=== PATIENT | female | born 1975 | race Caucasian/White ===

== ENCOUNTER 2021-06-14 18:50 | Inpatient (IN) | payer MEDICARE, MEDICAID, SELFPAY ==
[2021-06-14] VITALS (31 sets, daily range): BP systolic 114–138; BP diastolic 69–90; PULSE 94–125; RESP 14–34; TEMP 37.3; O2SAT 83–100
--- NOTE | ~2021-06-14 | XR_ITS ---
EXAMINATION: XR chest 1V portable DATE: 06/15/2021 17:13 INDICATION: Pulmonary edema. TECHNIQUE: A single frontal view of the chest was obtained. COMPARISON: Chest single view 06/14/21 FINDINGS: There is a diffuse interstitial pattern, consistent with mild pulmonary edema. No pleural e ffusion or pneumothorax. The heart size is normal. IMPRESSION: 1. Mild pulmonary edema. Reviewed, dictated and finalized at location A. [employer] IMPRESSION: 1. Mild pulmonary edema.
--- NOTE | ~2021-06-14 | XR_ITS ---
EXAMINATION: XR chest 2V DATE: 06/17/2021 09:54 INDICATION: Pulmonary edema TECHNIQUE: PA and lateral views of the chest were obtained. COMPARISON: Chest radiograph dated process 11/29 FINDINGS: Mild increased interstitial pattern in the bilateral lower lung zones consistent with mild pulmonary edema. New more confluent airspace opacities at the posterolateral left lung base consistent with ate lectasis and/or pneumonia. No pleural effusion or pneumothorax. The cardiomediastinal silhouette is n ormal. Cholecystectomy clips in the right upper quadrant. IMPRESSION: 1. Focal airspace opacities the posterolateral left lung base which could represent atelectasis and/o r pneumonia. 2. Mild pulmonary edema at the lung bases. Reviewed, dictated and finalized at location B. STS' MODEL IMPRESSION: 1. Focal airspace opacities the posterolateral left lung base which could repre sent atelectasis and/or pneumonia. 2. Mild pulmonary edema at the lung bases.
--- NOTE | ~2021-06-14 | XR_ITS ---
EXAMINATION: XR chest 1V portable DATE: 06/14/2021 19:23 INDICATION: Dyspnea. TECHNIQUE: A single frontal view of the chest was obtained. COMPARISON: None. FINDINGS: The lung volumes are normal. A calcified right lung nodule is consistent with old granuloma tous disease. There is a diffuse interstitial pattern in the lungs. No pleural effusion or pneumothor ax. The heart size is normal. There are prominent paracardial fat pads. IMPRESSION: 1. Diffuse interstitial pattern in the lungs, consistent with mild pulmonary edema versus atypical pn eumonia. Reviewed, dictated and finalized at location A. RIAL DISTRIBUTOR IMPRESSION: 1. Diffuse interstitial pattern in the lungs, consistent with mild pulmonary ed alex versus atypical pneumonia.
--- NOTE | 2021-06-14 18:51 | ECG_ITS ---
Measurements Intervals [place] Rate: 117 P: 75 PA: 104 QRS: -29 QRSD: 82 T: 62 QT: 273 QTc: 382 Interpretive Statements SINUS TACHYCARDIA WITH SHORT PA INTERVAL POOR R WAVE PROGRESSION, ANTERIOR LEADS BORDERLINE ST-T WAVE ABNORMALITY- INF/HIGH LAT LEADS BASELINE ARTIFACT- I, II, III, AVR, AVL, AVF ABNORMAL ECG Electronically Signed On 06-14-2021 20:21:54 ASSISTANT OFFSET PRESS OPERATOR by Mathieu Restrepo D.O.
[2021-06-14] MEDS: IPRATROPIUM BR 0.02% INH SOLN 0.5 MG/2.5 ML VIAL 1 MG INHALATION (19:13)
[2021-06-14] MEDS: ALBUTEROL SULFATE NEB 2.5 MG/0.5 ML INH 10 MG INHALATION (19:13)
[2021-06-14 19:18] LABS: Alveolar/Arterial O2 Gradient 234.1 mmHg; Base Excess ABG -2.1 mEq/l (+/-2.0); Fractional Inspired Oxygen 48 %; HCO3 ABG 25.3 mEq/l (22.0-26.0); Methemoglobin ABG 0.2 %THb (0-1.5); Oxygen Content ABG 16.1 %vol (16.0-22.0); PCO2 ABG 53.6 mmHg (35.0-45.0); PO2 FiO2 Ratio Arterial Blood 0.99 %; Reduced Hemoglobin 15.6 %THb (0-5.0); Total Hemoglobin 14.7 g/dL (12.0-18.0)
[2021-06-14 19:20] LABS: Oxygen Saturation ABG 78.3 % (95.0-100.0); PO2 ABG 47.6 mmHg (80.0-100.0); pH ABG 7.292 (7.350-7.450)
[2021-06-14 19:21] LABS: Device NASAL CANNULA; Modified Allen's Test Pass; Oxyhemoglobin 78.2 % THb (90.0-100.0); Site Drawn LEFT RADIAL
[2021-06-14] MEDS: methylPREDNISolone SOD SUCC 125 MG VIAL IV PUSH (19:21)
[2021-06-14 19:38] LABS: Basophils Absolute Auto 0.1 K/mm3 (0.0-0.1); Basophils Percent Auto 0.7 % (0.2-1.2); Eosinophils Absolute Auto 0.2 K/mm3 (0-0.3); Eosinophils Percent Auto 1.3 % (0-4.4); Hematocrit 44.6 % (37.0-47.0); Hemoglobin 13.8 g/dL (12.0-15.0); Immature Granulocyte Absolute 0.07 K/mm3 (0.00-0.031); Immature Granulocyte Percent A 0.6 % (0-0.5); Lymphocytes Absolute Auto 2.56 K/mm3 (0.9-3.2); Lymphocytes Percent Auto 21.6 % (18.3-44.2); Mean Corpuscular HGB Conc 30.9 g/dl (32-36); Mean Corpuscular Hemoglobin 30.2 pg (26-34); Mean Corpuscular Volume 97.6 fl (80-100); Mean Platelet Volume 10.6 fl (7.4-10.4); Monocytes Absolute Auto 1.1 K/mm3 (0.1-0.6); Monocytes Percent Auto 8.9 % (2.6-8.5); Neutrophils Absolute Auto 7.9 K/mm3 (1.3-6.7); Neutrophils Percent Auto 66.9 % (45.5-73.1); Nucleated Red Blood Cells Perc 0.3 % (0.0-0.2); Platelet Count Result 250 k/mm3 (150-375); Red Blood Count 4.57 M/mm3 (4.2-5.4); Red Cell Distribution Width 18.2 % (11.5-14.5); White Blood Count 11.9 K/mm3 (4.5-10.0)
[2021-06-14 19:48] LABS: Add Urine Microscopic? YES; Appearance Urine Clear (Clear); Bilirubin Urine Negative (Negative); Blood Urine Negative (Negative); Color Urine Straw (Yellow); Glucose Urine UA Negative (Negative); Ketones Urine Negative (Negative); Leukocyte Esterase Ur Negative LEU/UL (Negative); Mucus Urine Rare /lpf; Nitrate Urine Negative (Negative); Protein Urine 1+ mg/dL (Negative); RBC Urine 0-2 /hpf (0-2); Squamous Epithelial Cell Urine Occasional /hpf (Few); Urobilinogen Urine Negative mg/dL (<2.0); WBC Urine 0-3 /hpf
[2021-06-14 19:49] LABS: Alanine Aminotransferase 26 U/L (4-35); Albumin Level 3.9 g/dL (3.5-5.1); Alkaline Phosphatase 118 U/L (38-126); Anion Gap 11 mmol/L (8-16); Aspartate Amino Transferase 36 U/L (14-36); Bilirubin,Total 0.7 mg/dL (0.2-1.3); Blood Urea Nitrogen 6 mg/dL (7-17); Calcium 8.1 mg/dL (8.4-10.2); Carbon Dioxide 24 mmol/L (22-30); Chloride 107 mmol/L (98-107); Estimated CRCL calculation 77 ml/min; Estimated Glomerular Filt Rate > 60; Glucose 132 mg/dL (65-110); Potassium 3.3 mmol/L (3.4-5.0); Sodium 142 mmol/L (137-145)
[2021-06-14 19:50] LABS: Lactic Acid Reflex 1.5 mmol/L (0.7-2.1)
--- NOTE | 2021-06-14 19:52 | ED.SOB ---
HPI - SOB/Dyspnea General Chief Complaint: Shortness of Breath/Dyspnea Stated Complaint: SOb Time Seen by Provider: 06/14/21 18:58 Source: patient and RN notes reviewed Mode of arrival: ambulatory Limitations: no limitations History of Present Illness HPI Narrative: This is a 46 year old female with history CHF, COPD, chronic respiratory failure of 4 L NC who presents for evaluation of shortness of breath. She reports chronic sob but it became worse last night into today. On arrival to ER, she was found to have oxygen saturation of 83 % on 4 L NC. She reports having fever of 101 2 days ago. She also reports nonproductive worsening cough and runny nose. She has constant chest pressure for 2-3 days but denies any exacerbating factors. She reports chronic leg swelling from CHF but no worsening. She also denies nausea or vomiting. She is still awaiting her booster vaccination. Related Data Home Medications Medication Instructions Recorded Confirmed alprazolam 1 mg PO BID 06/15/21 06/15/21 duloxetine 60 mg PO DAILY 06/15/21 06/15/21 ibuprofen 800 mg PO Q8H 06/15/21 06/15/21 levetiracetam 1,000 mg PO BID 06/15/21 06/15/21 mirtazapine 45 mg PO HS 06/15/21 06/15/21 zolpidem 5 mg PO HS PRN 06/15/21 06/15/21 Allergies Allergy/AdvReac Type Severity Reaction Status Date / Time levofloxacin Allergy unknown Verified 12/23/20 10:43 Review of Systems Review of Systems: All systems reviewed & are unremarkable except as noted in HPI and below PMFSH Past Medical History Medical History (Updated 06/15/21 @ 00:29 by Lidya Ngo MD) CHF (congestive heart failure) Chronic respiratory failure Emphysema/COPD Exam Const: General: alert and ill appearing Orientation/consciousness: patient oriented x3 Other: lethargic Eyes: EOM: EOMs intact bilaterally Chest: Chest palpation & inspection: normal inspection of the chest Resp: Effort & Inspection: not labored and tachypneic Auscultation: wheezes and diminished lung sounds Cardio: Rate: tachycardic Rhythm: regular rhythm Heart sounds: no murmurs GI: GI Palp: Yes Soft to palpation, No Tenderness to palpation present (GI) and No Guarding due to palpation present (GI) Auscultation: normal bowel sounds Skin: General skin exam: normal color Neuro: General: patient oriented x3, moves all extremities and CN's II-XI intact bilaterally Psych: Mental Status: mental status grossly normal Affect: normal affect Course Reevaluation(s) Reevaluation #1: PAtient is agreeable to be placed on BIPAP for respiratory failure with hypercapnea Date: 06/14/21 Time: 20:00 Reevaluation #2: Patient is up and awake. she is asking for food. She reports she feels better. She understands that she will be admitted. she has been given treatment for COPD, CHF and pneumonia. She is PUI covid Date: 06/15/21 Time: 22:00 Consultations Consultation #1: I Discussed case with DR Loretta Rivera. We discussed ABg. Will changed BIPAP parameters to 18/6 with Fio2 of 40%. Date: 06/15/21 Time: 22:30 Vital Signs Vital signs: Vital Signs Temperature 99.1 F 06/14/21 18:55 Pulse Rate 125 H 06/14/21 18:55 Respiratory Rate 20 06/14/21 18:55 Blood Pressure 137/73 06/14/21 18:55 Pulse Oximetry 83 L 06/14/21 18:55 Temperature 97.9 F 06/15/21 01:17 Pulse Rate 95 06/15/21 01:17 Respiratory Rate 13 06/15/21 01:17 Blood Pressure 123/79 06/15/21 01:16 Pulse Oximetry 95 06/15/21 01:17 MDM - SOB/Dyspnea Lab Data Attestation: I reviewed the patient's lab results. Result diagrams: 06/14/21 19:21 06/14/21 19:21 Labs: Lab Results 06/14/21 06/14/21 06/14/21 Range/Units 19:10 19:21 19:21 WBC 11.9 H (4.5-10.0) K/mm3 RBC 4.57 (4.2-5.4) M/mm3 Hgb 13.8 (12.0-15.0) g/dL Hct 44.6 (37.0-47.0) % MCV 97.6 (80-100) fl MCH 30.2 (26-34) pg MCHC 30.9 L (32-36) g/dl RDW 18.2 H (11.5-14.5) % Plt Count 250
[2021-06-14 19:56] LABS: Specific Grav Ur 1.002 (1.001-1.035)
[2021-06-14] MEDS: POTASSIUM CHLORIDE 20 MEQ TABLET 40 MEQ PO (19:58)
[2021-06-14 20:01] LABS: NT Pro B Type Natriuretic Pept 1640 pg/mL (5-100); Troponin I < 0.012 ng/mL (0.000-0.034)
[2021-06-14 20:19] LABS: Anisocytosis 1+ (NORMAL); Hypochromasia 1+ (NORMAL); Ovalocytes 1+ (NORMAL); Platelet Estimate Adequate (Adequate)
[2021-06-14 20:20] LABS: Acanthocytes 1+ (NORMAL)
[2021-06-14 22:06] LABS: Base Excess ABG -1.1 mEq/l (+/-2.0); Carboxyhemoglobin 3.9 % THb (0-2.0); Fractional Inspired Oxygen 65 %; HCO3 ABG 27.6 mEq/l (22.0-26.0); Methemoglobin ABG 0.3 %THb (0-1.5); Oxygen Content ABG 20.2 %vol (16.0-22.0); Oxygen Saturation ABG 96.6 % (95.0-100.0); Oxyhemoglobin 92.7 % THb (90.0-100.0); PO2 ABG 100.8 mmHg (80.0-100.0); PO2 FiO2 Ratio Arterial Blood 1.55 %; Reduced Hemoglobin 3.1 %THb (0-5.0); Total Hemoglobin 15.4 g/dL (12.0-18.0)
[2021-06-14 22:07] LABS: Modified Allen's Test Pass; PCO2 ABG 63.1 mmHg (35.0-45.0); Site Drawn RIGHT RADIAL; pH ABG 7.259 (7.350-7.450)
[2021-06-14 22:08] LABS: Device BIPAP
[2021-06-14 22:09] LABS: Expiratory Pressure 6 cmH2O; Inspiratory Pressure 14 cmH2O
[2021-06-14] MEDS: FUROSEMIDE INJ 40 MG/4 ML VIAL IV PUSH (22:34)
--- NOTE | 2021-06-14 23:20 | PC.NURSE ---
Report received from CHRISS Bolivar. Assumed care of patient at this time.
[2021-06-15] VITALS (42 sets, daily range): BP systolic 107–128; BP diastolic 49–100; PULSE 65–107; RESP 12–27; TEMP 36.5–36.8; O2SAT 91–100; BMI 36.3
[2021-06-15] MEDS: methylPREDNISolone SOD SUCC 125 MG VIAL 60 MG IV PUSH ×4 (01:24→17:01)
[2021-06-15 01:59] LABS: Alveolar/Arterial O2 Gradient 146.5 mmHg; Base Excess ABG -2.1 mEq/l (+/-2.0); Fractional Inspired Oxygen 40 %; HCO3 ABG 26.4 mEq/l (22.0-26.0); Methemoglobin ABG 0.3 %THb (0-1.5); Oxygen Content ABG 19.5 %vol (16.0-22.0); Oxygen Saturation ABG 90.9 % (95.0-100.0); Oxyhemoglobin 89.7 % THb (90.0-100.0); PO2 ABG 69.4 mmHg (80.0-100.0); PO2 FiO2 Ratio Arterial Blood 1.74 %; Total Hemoglobin 15.5 g/dL (12.0-18.0)
[2021-06-15 02:04] LABS: pH ABG 7.259 (7.350-7.450)
[2021-06-15 02:05] LABS: Device NON-INVASIVE VENT; Modified Allen's Test Pass; PCO2 ABG 60.3 mmHg (35.0-45.0); Site Drawn LEFT RADIAL
[2021-06-15 02:06] LABS: Non-Invasive Expiratory Pressure 6 CMH2O; Non-Invasive Inspiratory Pressure 18 CMH2O; Non-Invasive Vent Rate 20 /MIN
--- NOTE | 2021-06-15 02:10 | PM.IMHP ---
H&P: HPI History of Present Illness Date/Time: 06/15/21 02:10 Chief Complaint: Shortness of breath Narrative: 46-year-old female with a past medical history CHF, COPD, chronic hypercapnic/hypoxic respiratory failure on 2 L nasal cannula at all times who presented to the ER with shortness of breath. The patient reports that she is chronically short of breath but it became worse the night before she presented to the ER. On arrival to the ER she had hypoxia with oxygen saturations of 83% on her home O2 of 4 L. her shortness of breath was accompanied by a fever of 101.2? that started 2 days ago. She has associated chest pressure/tightness that is general for the last 2-3 days and a nonproductive cough with rhinorrhea. She is vaccinated against COVID-19 but has not yet received her booster. She reports that she has not been hospitalized for COPD in over a year. She has never been evaluated at this facility before. She reported history of CHF but denies any lower extremity swelling or orthopnea. She denies any rhinorrhea nasal congestion. She denies any known ill contacts but lives in the home with her 23-year-old son 18-year-old son and her brother. She does wear her CPAP/BiPAP as directed. She continues to smoke 2-3 cigarettes a day. Chest x-ray in the ER demonstrated diffuse interstitial pattern consistent with mild pulmonary edema or atypical pneumonia. She reports that she feels much better after receiving steroids and antibiotics in the ER. She is currently wearing BiPAP as time of my evaluation. She was hopeful that she would be discharged today. Review of Systems Review of Systems: 12 systems were reviewed with pertinent positives and negatives per HPI. Except as documented in the HPI, all other systems were reviewed and are negative. 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 Her mother recently unexpectedly in August. She reports that she is now the november are cool figure in the family in this at some stress. Her sons are 18 in 23 years of age. She smoked up to 1.5 packs of cigarettes per day since he was a teenager but has cut down to about 0.5 packs of cigarettes per day since November 2020. She denies any significant alcohol use. She reports that she is on SSI. Smoking packs per day: 1.5 Smoking cigarettes per day: 30.0 Years smoked: 30 Smoking pack-years: 45.00 Smoking status: Current every day smoker Alcohol intake: never Meds Home Medications and Allergies Home Medications Medication Instructions Recorded Confirmed Type pregabalin 50 mg capsule 50 mg PO TID #90 cap 06/11/21 06/15/21 Rx alprazolam 1 mg PO BID 06/15/21 06/15/21 History duloxetine 60 mg PO DAILY 06/15/21 06/15/21 History ibuprofen 800 mg PO Q8H 06/15/21 06/15/21 History levetiracetam 1,000 mg PO BID 06/15/21 06/15/21 History mirtazapine 45 mg PO HS 06/15/21 06/15/21 History zolpidem 5 mg PO HS PRN 06/15/21 06/15/21 History Allergies Allergy/AdvReac Type Severity Reaction Status Date / Time levofloxacin Allergy unknown Verified 12/23/20 10:43 Vital Signs Vital Signs - 24 hr 06/14/21 18:55 06/14/21 18:58 06/14/21 18:59 Temperature 99.1 F Pulse Rate 125 H 125 H 124 H Respiratory Rate 20 28
--- NOTE | 2021-06-15 02:16 | PC.NURSE ---
VORB increase patients respiratory rate to 26, order by . Contacted respiratory to inform them of verbal order.
[2021-06-15] MEDS: MIRTAZAPINE 15 MG TABLET 45 MG PO ×2 (02:21→20:08)
[2021-06-15] MEDS: levETIRAcetam 500 MG TABLET 1000 MG PO ×3 (02:22→20:08)
--- NOTE | 2021-06-15 03:10 | PC.NURSE ---
0303 Patients darian Gonzales calls to get update on patient. This nurse informs him of patients status.
[2021-06-15 05:13] LABS: Alveolar/Arterial O2 Gradient 141.2 mmHg; Base Excess ABG -0.9 mEq/l (+/-2.0); Carboxyhemoglobin 2.4 % THb (0-2.0); Fractional Inspired Oxygen 40 %; HCO3 ABG 27.3 mEq/l (22.0-26.0); Methemoglobin ABG 0.3 %THb (0-1.5); Oxygen Content ABG 19.6 %vol (16.0-22.0); Oxygen Saturation ABG 93.1 % (95.0-100.0); Oxyhemoglobin 91.7 % THb (90.0-100.0); PCO2 ABG 59.7 mmHg (35.0-45.0); PO2 ABG 75.3 mmHg (80.0-100.0); PO2 FiO2 Ratio Arterial Blood 1.88 %; Reduced Hemoglobin 5.6 %THb (0-5.0); Total Hemoglobin 15.2 g/dL (12.0-18.0)
[2021-06-15 05:14] LABS: Basophils Percent Auto 0.3 % (0.2-1.2); Hematocrit 47.6 % (37.0-47.0); Hemoglobin 14.7 g/dL (12.0-15.0); Immature Granulocyte Absolute 0.11 K/mm3 (0.00-0.031); Immature Granulocyte Percent A 1.5 % (0-0.5); Lymphocytes Absolute Auto 0.69 K/mm3 (0.9-3.2); Lymphocytes Percent Auto 9.5 % (18.3-44.2); Mean Corpuscular HGB Conc 30.9 g/dl (32-36); Mean Corpuscular Hemoglobin 30.1 pg (26-34); Mean Corpuscular Volume 97.3 fl (80-100); Mean Platelet Volume 10.9 fl (7.4-10.4); Monocytes Absolute Auto 0.1 K/mm3 (0.1-0.6); Monocytes Percent Auto 1.6 % (2.6-8.5); Neutrophils Absolute Auto 6.4 K/mm3 (1.3-6.7); Neutrophils Percent Auto 87.1 % (45.5-73.1); Platelet Count Result 241 k/mm3 (150-375); Red Blood Count 4.89 M/mm3 (4.2-5.4); Red Cell Distribution Width 18.6 % (11.5-14.5); White Blood Count 7.3 K/mm3 (4.5-10.0)
[2021-06-15 05:14] LABS: pH ABG 7.278 (7.350-7.450)
[2021-06-15 05:15] LABS: Device BIPAP; Expiratory Pressure 6 cmH2O; Inspiratory Pressure 18 cmH2O; Modified Allen's Test Pass; Site Drawn RIGHT RADIAL
[2021-06-15 05:21] LABS: Alanine Aminotransferase 27 U/L (4-35); Albumin Level 4.2 g/dL (3.5-5.1); Alkaline Phosphatase 125 U/L (38-126); Anion Gap 10 mmol/L (8-16); Aspartate Amino Transferase 31 U/L (14-36); Bilirubin,Total 0.6 mg/dL (0.2-1.3); Blood Urea Nitrogen 7 mg/dL (7-17); Calcium 8.4 mg/dL (8.4-10.2); Carbon Dioxide 27 mmol/L (22-30); Chloride 104 mmol/L (98-107); Estimated CRCL calculation 70 ml/min; Estimated Glomerular Filt Rate 59; Glucose 207 mg/dL (65-110); Potassium 4.9 mmol/L (3.4-5.0); Sodium 141 mmol/L (137-145)
[2021-06-15] MEDS: ALPRAZolam (*CRX) 0.5 MG TABLET 1 MG PO ×2 (09:10→17:01)
[2021-06-15] MEDS: DULoxetine HCL 60 MG CAPSULE.DR PO (09:11)
[2021-06-15] MEDS: POTASSIUM CHLORIDE 20 MEQ TABLET.ER PO (09:34)
--- NOTE | 2021-06-15 09:41 | PC.NURSE ---
pt darian solomon contacted at [phone] per pts request. made aware of pts status and plan of care
--- NOTE | 2021-06-15 10:20 | ADMGEN ---
This patient, Sydni Olivera, was admitted to [facility]. Patient/family oriented to hospital policies and general routines including ID bracelet, bed and alarms, visiting hours, pain management, procedures, bathroom and other care routines, personal items, smoking policy, room service/diet, and visiting hours. Information on how to activate the Rapid Response Team has been discussed. Patient/Family are encouraged to report perceived risks to care and to ask questions if they do not understand what they are told or what they should do.
[2021-06-15] MEDS: ALBUTEROL SULFATE (*SP) AEROSOL 1 PUFF 4 PUFF INHALATION ×2 (13:20→22:49)
[2021-06-15] MEDS: PREGABALIN (*CRX) 50 MG CAPSULE PO ×2 (14:30→17:01)
--- NOTE | 2021-06-15 16:35 | PM.IMPN ---
Progress Note: A&P Assessment and Plan (1) Acute on chronic respiratory failure with hypoxia and hypercapnia: Code(s): J96.21 - Acute and chronic respiratory failure with hypoxia; J96.22 - Acute and chronic respiratory failure with hypercapnia Status: Acute Assessment and Plan: Patient has a history of chronic hypoxic hypercapnic respiratory failure on 2 L nasal cannula at all times. She wears a BiPAP at night. She presented with worsening shortness of breath, hypoxia, fever, chest tightness and a dry cough with upper respiratory symptoms. She continues to smoke 3 cigarettes a day. She was diagnosed with acute on chronic hypercapnic hypoxic respiratory failure, felt to be most likely due to underlying lower respiratory tract infection with pneumonia. Cause of pneumonia is uncertain could be bacterial versus viral/COVID. Patient remains on droplet isolation while COVID test is pending. Patient been placed on empiric antibiotic therapy with Rocephin and azithromycin for possible bacterial pathology. The patient's ABG demonstrate slight improvement of blood gas. She was appropriately started on IV steroids, IV antibiotic and diuretic in the ED after chest x-ray demonstrated diffuse interstitial pattern consistent with mild pulmonary edema versus atypical pneumonia. COVID serology has been sent and remains pending at the time of this dictation. Continue ceftriaxone, Zithromax and Solu-Medrol. Continue IV Lasix. Repeat abg in AM. (2) Person under investigation for COVID-19: Code(s): Z20.822 - Contact with and (suspected) exposure to COVID-19 Status: Acute Assessment and Plan: COVID serologies pending at the time of the dictation. (3) Respiratory acidosis: Code(s): E87.2 - Acidosis Status: Acute Assessment and Plan: ABG was reviewed. Historically patient is a chronic CO2 retainer. Continue BiPAP at bedtime and p.r.n.. Check ABG in a.m.. (4) Pneumonia: Code(s): J18.9 - Pneumonia, unspecified organism Status: Acute Assessment and Plan: Patient presented with a history of fever. On CBC there is no leukocytosis. Chest x-ray shows diffuse interstitial pattern in the lungs, consistent with mild pulmonary edema versus atypical pneumonia. Additional Plan Patient presented with acute on chronic hypercapnic hypoxic respiratory failure most likely due to underlying lower respiratory tract infection with pneumonia. Cause of pneumonia is uncertain could be bacterial versus viral/COVID. Patient remains on droplet isolation and COVID test is pending. Patient been placed on empiric antibiotic therapy with Rocephin and azithromycin for possible bacterial pathology. The patient's ABG demonstrate slight improvement of blood gas. At some of my evaluation did tight the patient's face mask. After labs ABG I did increase the patient's pressure to 22/6 from 18/6 and her backup rate had been increased to 26. The patient seems relatively asymptomatic and is eager to eat. I suspect that the patient likely has some chronic respiratory acidosis and would be surprised if her pH is in always below 7.3 given how asymptomatic she is. Will continue patient on scheduled IV Solu-Medrol and scheduled albuterol inhalers. Patient was given a dose of Lasix in the ER but the patient appears relatively euvolemic in given the fact the patient was febrile at home willing towards more pneumonia than pulmonary edema noted on x-ray read. Subjective Date/time seen: 46-year-old female with a past medical history CHF, COPD, chronic hypercapnic/hypoxic respiratory failure on 2 L nasal cannula at all times who presented to the ER with shortness of breath. The patient reports that she is chronically short of breath but it became worse the night before she presented to the ER. On arrival to the ER she had hypoxia with oxygen saturations of 83% on her home O2 of 4 L. her shortness of breath was accompanied by a fever of 101.2?
--- NOTE | 2021-06-15 18:57 | PC.NURSE ---
This patient, Sydni Olivera, was received from [ ER] on 06/15/21 at 1838. Patient/family oriented to unit policies and routines. Pt on 6 L nasal canula. A&O x3.
[2021-06-16] VITALS (18 sets, daily range): BP systolic 110–122; BP diastolic 51–68; PULSE 73–115; RESP 18–28; TEMP 36.1–36.6; O2SAT 91–100
[2021-06-16] MEDS: methylPREDNISolone SOD SUCC 125 MG VIAL 60 MG IV PUSH ×5 (00:13→23:06)
[2021-06-16] MEDS: ALBUTEROL SULFATE (*SP) AEROSOL 1 PUFF 4 PUFF INHALATION ×4 (02:27→20:12)
[2021-06-16 05:48] LABS: Basophils Percent Auto 0.2 % (0.2-1.2); Hematocrit 44.1 % (37.0-47.0); Hemoglobin 13.5 g/dL (12.0-15.0); Immature Granulocyte Absolute 0.09 K/mm3 (0.00-0.031); Immature Granulocyte Percent A 0.7 % (0-0.5); Lymphocytes Absolute Auto 0.85 K/mm3 (0.9-3.2); Lymphocytes Percent Auto 6.6 % (18.3-44.2); Mean Corpuscular HGB Conc 30.6 g/dl (32-36); Mean Corpuscular Hemoglobin 29.9 pg (26-34); Mean Corpuscular Volume 97.6 fl (80-100); Mean Platelet Volume 11.2 fl (7.4-10.4); Monocytes Absolute Auto 0.4 K/mm3 (0.1-0.6); Monocytes Percent Auto 2.9 % (2.6-8.5); Neutrophils Absolute Auto 11.6 K/mm3 (1.3-6.7); Neutrophils Percent Auto 89.6 % (45.5-73.1); Platelet Count Result 261 k/mm3 (150-375); Red Blood Count 4.52 M/mm3 (4.2-5.4); Red Cell Distribution Width 17.7 % (11.5-14.5); White Blood Count 12.9 K/mm3 (4.5-10.0)
[2021-06-16 06:07] LABS: Anion Gap 5 mmol/L (8-16); Blood Urea Nitrogen 13 mg/dL (7-17); Carbon Dioxide 30 mmol/L (22-30); Chloride 102 mmol/L (98-107); Estimated CRCL calculation 91 ml/min; Estimated Glomerular Filt Rate > 60; Glucose 196 mg/dL (65-110); Potassium 4.9 mmol/L (3.4-5.0); Sodium 137 mmol/L (137-145)
[2021-06-16] MEDS: DULoxetine HCL 60 MG CAPSULE.DR PO (08:46)
[2021-06-16] MEDS: POTASSIUM CHLORIDE 20 MEQ TABLET.ER PO (08:46)
[2021-06-16] MEDS: ALPRAZolam (*CRX) 0.5 MG TABLET 1 MG PO ×2 (08:46→18:12)
[2021-06-16] MEDS: PREGABALIN (*CRX) 50 MG CAPSULE PO ×3 (08:46→18:12)
[2021-06-16] MEDS: levETIRAcetam 500 MG TABLET 1000 MG PO ×2 (08:46→20:30)
--- NOTE | 2021-06-16 11:10 | PM.IMPN ---
Progress Note: A&P Assessment and Plan (1) Acute on chronic respiratory failure with hypoxia and hypercapnia: Code(s): J96.21 - Acute and chronic respiratory failure with hypoxia; J96.22 - Acute and chronic respiratory failure with hypercapnia Status: Acute Assessment and Plan: the patient gas exchange is improving with O2 requirement down from 7 L to 5 L today. Clinically she is feeling better. BiPAP was well tolerated overnight. Unfortunately patient has remained on droplet isolation while COVID test is pending.Patient has a history of chronic hypoxic hypercapnic respiratory failure on 2 L nasal cannula at all times. She wears a BiPAP at night. She presented with worsening shortness of breath, hypoxia, fever, chest tightness and a dry cough with upper respiratory symptoms. She continues to smoke 3 cigarettes a day. She was diagnosed with acute on chronic hypercapnic hypoxic respiratory failure, felt to be most likely due to underlying lower respiratory tract infection with pneumonia. Cause of pneumonia is uncertain could be bacterial versus viral/COVID. Patient been placed on empiric antibiotic therapy with Rocephin and azithromycin for possible bacterial pathology. The patient's ABG demonstrate slight improvement of blood gas. She was appropriately started on IV steroids, IV antibiotic and diuretic in the ED after chest x-ray demonstrated diffuse interstitial pattern consistent with mild pulmonary edema versus atypical pneumonia. COVID PCR has been sent and remains pending at the time of this dictation. Continue ceftriaxone, Zithromax and Solu-Medrol. Continue IV Lasix. Repeat abg in AM. (2) Person under investigation for COVID-19: Code(s): Z20.822 - Contact with and (suspected) exposure to COVID-19 Status: Acute Assessment and Plan: COVID serologies pending at the time of the dictation. (3) Respiratory acidosis: Code(s): E87.2 - Acidosis Status: Acute Assessment and Plan: ABG was reviewed. Historically patient is a chronic CO2 retainer. Continue BiPAP at bedtime and p.r.n.. Check ABG in a.m.. (4) Pneumonia: Code(s): J18.9 - Pneumonia, unspecified organism Status: Acute Assessment and Plan: Patient presented with a history of fever. On CBC there is no leukocytosis. Chest x-ray shows diffuse interstitial pattern in the lungs, consistent with mild pulmonary edema versus atypical pneumonia. Patient improving clinically after antibiotic and diuresis. Follow up on COVID test. Additional Plan Patient presented with acute on chronic hypercapnic hypoxic respiratory failure most likely due to underlying lower respiratory tract infection with pneumonia. Cause of pneumonia is uncertain could be bacterial versus viral/COVID. Patient remains on droplet isolation and COVID test is pending. Patient been placed on empiric antibiotic therapy with Rocephin and azithromycin for possible bacterial pathology. The patient's ABG demonstrate slight improvement of blood gas. At some of my evaluation did tight the patient's face mask. After labs ABG I did increase the patient's pressure to 22/6 from 18/6 and her backup rate had been increased to 26. The patient seems relatively asymptomatic and is eager to eat. I suspect that the patient likely has some chronic respiratory acidosis and would be surprised if her pH is in always below 7.3 given how asymptomatic she is. Will continue patient on scheduled IV Solu-Medrol and scheduled albuterol inhalers. Patient was given a dose of Lasix in the ER but the patient appears relatively euvolemic in given the fact the patient was febrile at home willing towards more pneumonia than pulmonary edema noted on x-ray read. Subjective Date/time seen: 06/16/21 11:10 S: patient is examined at the bedside. Her breathing has improved significantly. No active complaints. Patient is anxious to return home. Review of Systems Review of Systems: All
[2021-06-16 19:11] LABS: SARS-CoV-2 RNA PCR Negative
[2021-06-16] MEDS: MIRTAZAPINE 15 MG TABLET 45 MG PO (20:30)
[2021-06-17] VITALS (16 sets, daily range): BP systolic 107–130; BP diastolic 48–61; PULSE 65–110; RESP 18–26; TEMP 36–36.6; O2SAT 84–97
[2021-06-17] MEDS: ALBUTEROL SULFATE (*SP) AEROSOL 1 PUFF 4 PUFF INHALATION ×2 (03:20→08:06)
[2021-06-17 06:07] LABS: Anion Gap 4 mmol/L (8-16); Blood Urea Nitrogen 19 mg/dL (7-17); Calcium 8.8 mg/dL (8.4-10.2); Carbon Dioxide 30 mmol/L (22-30); Chloride 101 mmol/L (98-107); Estimated CRCL calculation 82 ml/min; Estimated Glomerular Filt Rate > 60; Glucose 193 mg/dL (65-110); Potassium 4.9 mmol/L (3.4-5.0); Sodium 135 mmol/L (137-145)
[2021-06-17 06:11] LABS: Basophils Percent Auto 0.1 % (0.2-1.2); Hematocrit 44.8 % (37.0-47.0); Hemoglobin 13.6 g/dL (12.0-15.0); Immature Granulocyte Absolute 0.07 K/mm3 (0.00-0.031); Immature Granulocyte Percent A 0.6 % (0-0.5); Lymphocytes Absolute Auto 0.99 K/mm3 (0.9-3.2); Lymphocytes Percent Auto 8.6 % (18.3-44.2); Mean Corpuscular HGB Conc 30.4 g/dl (32-36); Mean Corpuscular Hemoglobin 29.1 pg (26-34); Mean Corpuscular Volume 95.9 fl (80-100); Mean Platelet Volume 11.1 fl (7.4-10.4); Monocytes Absolute Auto 0.4 K/mm3 (0.1-0.6); Monocytes Percent Auto 3.6 % (2.6-8.5); Neutrophils Absolute Auto 10.1 K/mm3 (1.3-6.7); Neutrophils Percent Auto 87.1 % (45.5-73.1); Platelet Count Result 268 k/mm3 (150-375); Red Blood Count 4.67 M/mm3 (4.2-5.4); Red Cell Distribution Width 17.5 % (11.5-14.5); White Blood Count 11.5 K/mm3 (4.5-10.0)
--- NOTE | 2021-06-17 09:27 | PM.IMPN ---
Progress Note: A&P Assessment and Plan (1) Acute on chronic respiratory failure with hypoxia and hypercapnia: Code(s): J96.21 - Acute and chronic respiratory failure with hypoxia; J96.22 - Acute and chronic respiratory failure with hypercapnia Status: Acute Assessment and Plan: With O2 requirement down from 7 L to 5 L today. Clinically she is feeling better. BiPAP was well tolerated overnight. Unfortunately patient has remained on droplet isolation while COVID test is negative. Patient has a history of chronic hypoxic hypercapnic respiratory failure on 4 L nasal cannula at all times. She wears a BiPAP at night. She finally presented with worsening shortness of breath, hypoxia, fever, chest tightness and a dry cough with upper respiratory symptoms. She continues to smoke 3 cigarettes a day. She was diagnosed with acute on chronic hypercapnic hypoxic respiratory failure, felt to be most likely due to underlying lower respiratory tract infection with pneumonia. Cause of pneumonia is uncertain could be bacterial versus viral/. Patient has improved on empiric antibiotic therapy with Rocephin and azithromycin for possible bacterial pathology. Blood cultures are negative so far. The patient's ABG demonstrate slight improvement of blood gas. She was appropriately started on IV steroids, IV antibiotic and diuretic in the ED after chest x-ray demonstrated diffuse interstitial pattern consistent with mild pulmonary edema versus atypical pneumonia. COVID PCR has been sent and remains pending at the time of this dictation. Continue ceftriaxone, Zithromax and Solu-Medrol. Continue IV Lasix. Follow-up repeat chest x-ray, abg in AM. (2) Person under investigation for COVID-19: Code(s): Z20.822 - Contact with and (suspected) exposure to COVID-19 Status: Acute Assessment and Plan: COVID PCR negative. Isolation was stopped. (3) Respiratory acidosis: Code(s): E87.2 - Acidosis Status: Acute Assessment and Plan: ABG was reviewed. Historically patient is a chronic CO2 retainer. Continue BiPAP at bedtime and p.r.n.. Check ABG in a.m.. (4) Pneumonia: Code(s): J18.9 - Pneumonia, unspecified organism Status: Acute Assessment and Plan: Patient presented with a history of fever. On CBC there is no leukocytosis. Chest x-ray shows diffuse interstitial pattern in the lungs, consistent with mild pulmonary edema versus atypical pneumonia. Patient improving clinically after antibiotic and diuresis. Follow up on repeat chest Xray, home O2 eval and ABG today. Additional Plan Patient presented with acute on chronic hypercapnic hypoxic respiratory failure most likely due to underlying lower respiratory tract infection with pneumonia. Cause of pneumonia is uncertain could be bacterial versus viral/COVID. Patient remains on droplet isolation and COVID test is pending. Patient been placed on empiric antibiotic therapy with Rocephin and azithromycin for possible bacterial pathology. The patient's ABG demonstrate slight improvement of blood gas. At some of my evaluation did tight the patient's face mask. After labs ABG I did increase the patient's pressure to 22/6 from 18/6 and her backup rate had been increased to 26. The patient seems relatively asymptomatic and is eager to eat. I suspect that the patient likely has some chronic respiratory acidosis and would be surprised if her pH is in always below 7.3 given how asymptomatic she is. Will continue patient on scheduled IV Solu-Medrol and scheduled albuterol inhalers. Patient was given a dose of Lasix in the ER but the patient appears relatively euvolemic in given the fact the patient was febrile at home willing towards more pneumonia than pulmonary edema noted on x-ray read. Subjective Date/time seen: 06/17/21 09:15 S: Patient is examined at the bedside. She is feeling a lot better. Her breathing has improved. COVID is negative. Sleep was adequat
[2021-06-17] MEDS: FUROSEMIDE INJ 40 MG/4 ML VIAL 20 MG IV PUSH (10:05)
[2021-06-17] MEDS: POTASSIUM CHLORIDE 20 MEQ TABLET.ER PO (10:06)
[2021-06-17] MEDS: PREGABALIN (*CRX) 50 MG CAPSULE PO ×2 (10:06→12:23)
[2021-06-17] MEDS: DULoxetine HCL 60 MG CAPSULE.DR PO (10:06)
[2021-06-17] MEDS: ALPRAZolam (*CRX) 0.5 MG TABLET 1 MG PO (10:06)
[2021-06-17] MEDS: levETIRAcetam 500 MG TABLET 1000 MG PO (10:06)
[2021-06-17 11:30] LABS: Alveolar/Arterial O2 Gradient 169.8 mmHg; Fractional Inspired Oxygen 40 %; HCO3 ABG 28.6 mEq/l (22.0-26.0); Oxygen Content ABG 19.1 %vol (16.0-22.0); Oxygen Saturation ABG 93.7 % (95.0-100.0); Oxyhemoglobin 91.9 % THb (90.0-100.0); PO2 FiO2 Ratio Arterial Blood 1.65 %; Total Hemoglobin 14.8 g/dL (12.0-18.0); pH ABG 7.441 (7.350-7.450)
[2021-06-17 11:31] LABS: Site Drawn RIGHT RADIAL
[2021-06-17 11:32] LABS: Device NASAL CANNULA; Modified Allen's Test Pass
--- NOTE | 2021-06-17 12:01 | PCRCNOTE ---
HOME O2 EVAL DONE, PT REQUIRES 5 L AT REST AND WITH EXEERTION. PT WEARS CPAP AT HOME WITH 5 L BELLED IN. THIS IS HER CURRENT HOME O2 SETTING AND NO CHANGES HAVE BEEN MADE TO O2. PT HAS ALL REQUIRED HOME O2 EQUIPMENT.
[2021-06-17] MEDS: methylPREDNISolone SOD SUCC 125 MG VIAL 60 MG IV PUSH (12:23)
[2021-06-17] MEDS: FUROSEMIDE INJ 40 MG/4 ML VIAL IV PUSH (14:06)
[2021-06-17] MEDS: IBUPROFEN 600 MG TABLET PO (14:06)
--- NOTE | 2021-06-17 19:54 | PM.DS ---
DS: Admitting Diagnosis Discharge Date 06/17/21 Admitting Diagnosis (1) Acute on chronic respiratory failure with hypoxia and hypercapnia: (2) Person under investigation for COVID-19: (3) Respiratory acidosis: (4) Pneumonia: DS: Discharge Diagnosis Discharge Diagnosis (1) Acute on chronic respiratory failure with hypoxia and hypercapnia: Code(s): J96.21 - Acute and chronic respiratory failure with hypoxia; J96.22 - Acute and chronic respiratory failure with hypercapnia Status: Acute Assessment and Plan: Acute on chronic respiratory failure presenting with O2 requirement down from 7 L to 5 L today. Clinically she is feeling better. BiPAP was well tolerated overnight. Unfortunately patient has remained on droplet isolation while COVID test is negative. Patient has a history of chronic hypoxic hypercapnic respiratory failure on 4 L nasal cannula at all times. She wears a BiPAP at night. She finally presented with worsening shortness of breath, hypoxia, fever, chest tightness and a dry cough with upper respiratory symptoms. She continues to smoke 3 cigarettes a day. She was diagnosed with acute on chronic hypercapnic hypoxic respiratory failure, felt to be most likely due to underlying lower respiratory tract infection with pneumonia. Cause of pneumonia is uncertain could be bacterial versus viral/. Patient has improved on empiric antibiotic therapy with Rocephin and azithromycin for possible bacterial pathology. Blood cultures are negative so far. The patient's ABG demonstrate slight improvement of blood gas. She was appropriately started on IV steroids, IV antibiotic and diuretic in the ED after chest x-ray demonstrated diffuse interstitial pattern consistent with mild pulmonary edema versus atypical pneumonia. COVID PCR has been sent and remains pending at the time of this dictation. Continue ceftriaxone, Zithromax and Solu-Medrol. Continue IV Lasix. Follow-up repeat chest x-ray, abg in AM. (2) Person under investigation for COVID-19: Code(s): Z20.822 - Contact with and (suspected) exposure to COVID-19 Status: Acute Assessment and Plan: COVID PCR negative. Isolation was stopped. (3) Respiratory acidosis: Code(s): E87.2 - Acidosis Status: Acute Assessment and Plan: ABG was reviewed. Historically patient is a chronic CO2 retainer. Continue BiPAP at bedtime and p.r.n.. Check ABG in a.m.. (4) Pneumonia: Code(s): J18.9 - Pneumonia, unspecified organism Status: Acute Assessment and Plan: Patient presented with a history of fever. On CBC there is no leukocytosis. Chest x-ray shows diffuse interstitial pattern in the lungs, consistent with mild pulmonary edema versus atypical pneumonia. Patient improving clinically after antibiotic and diuresis. Follow up on repeat chest Xray, home O2 eval and ABG today. DS: Summary Hospital Course Reason for hospitalization: Shortness of breath Hospital Course: 46-year-old female with a past medical history CHF, COPD, chronic hypercapnic/hypoxic respiratory failure on 2 L nasal cannula at all times who presented to the ER with shortness of breath. The patient reports that she is chronically short of breath but it became worse symptoms the night before she presented to the ER. On arrival to the ER she had hypoxia with oxygen saturations of 83% on her home O2 of 4 L. her shortness of breath was accompanied by a fever of 101.2? that started 2 days ago. She has associated chest pressure/tightness that is general for the last 2-3 days and a nonproductive cough with rhinorrhea. She is vaccinated against COVID-19 but has not yet received her booster dose. She carries a history of CHF but denies any lower extremity swelling or orthopnea. She denies any rhinorrhea nasal congestion. She does wear her CPAP/BiPAP as directed and requires 4 liters of oxygen at all times. She continues to smoke 2-3 cigarettes a day. Chest x-ray in the ER
== END 2021-06-17 14:38 | disposition home or self-care (01) | DRG 193 ==
LOC: ANHED 19:27 → ANHICU 22:39 → ANHIMU 06-16 10:31 → ANHICU 06-18 15:06 → ANHIMU 06-18 15:06
PROVIDERS: Admitting Provider Internal Medicine; Emergency Provider General Practice; PCP Family Medicine; Visit Provider Internal Medicine
DX: J18.9 Pneumonia, unspecified organism (principal); J96.21 Acute and chronic respiratory failure with hypoxia; J96.22 Acute and chronic respiratory failure with hypercapnia; J44.0 Chronic obstructive pulmonary disease with (acute) lower respiratory infection; E87.2 Acidosis; Z20.822 Contact with and (suspected) exposure to COVID-19; I50.9 Heart failure, unspecified; F31.9 Bipolar disorder, unspecified; G62.9 Polyneuropathy, unspecified; G40.909 Epilepsy, unspecified, not intractable, without status epilepticus; F17.210 Nicotine dependence, cigarettes, uncomplicated; E66.9 Obesity, unspecified; Z68.36 Body mass index [BMI] 36.0-36.9, adult; Z99.81 Dependence on supplemental oxygen; Z90.49 Acquired absence of other specified parts of digestive tract
CPT/HCPCS: 36415; 36600; 71045; 71046; 80048; 80053; 81001; 82375; 82805; 83050; 83605; 83880; 84484; 85025; 87040; 87804; 93005; 94003; 94618; 94640; 96365; 96367; 96375; 99285; A4248; A9270; C9803; G0378; J0456; J0696; J1940; J2930; U0003; U0005

== ENCOUNTER 2021-07-15 23:16 | Inpatient (IN) | payer MEDICARE, MEDICAID, SELFPAY ==
--- NOTE | ~2021-07-15 | XR_ITS ---
XR chest 2V DATE: 07/16/2021 00:35 INDICATION: Shortness of breath and chest pain. Increased oxygen requirement TECHNIQUE: PA and lateral views COMPARISON: 06/17/2021 2 view chest 07/05/2021 portable AP chest 06/2021 portable AP chest FINDINGS: Moderate hyperinflation of the lungs. There is mild infiltrate or atelectasis at the left l rachel base. The lungs otherwise appear clear. Megaly. There is mild pulmonary vascular congestion and redistribution. No pleural effusion or pneumo thorax. Diffuse osteopenia. Surgical clips, right upper quadrant, consistent with cholecystectomy. IMPRESSION: Cardiomegaly, mild congestive heart failure Left basilar infiltrate and/atelectasis Reviewed, dictated and finalized at location A. OR PROPERTY MANAGER
[2021-07-15 23:25] VITALS: BP 130/81; PULSE 112; RESP 26
--- NOTE | 2021-07-15 23:30 | ECG_ITS ---
Measurements Intervals [place] Rate: 112 P: 80 WV: 124 QRS: -3 QRSD: 86 T: 66 QT: 358 QTc: 489 Interpretive Statements SINUS TACHYCARDIA DELAYED PRECORDIAL R/S TRANSITION BASELINE WANDER- II, III, V2 ABNORMAL ECG Electronically Signed On 07-16-2021 6:36:24 MANAGER FI[employer]ES by Mathieu Restrepo D.O.
[2021-07-15 23:40] VITALS: O2SAT 60
--- NOTE | 2021-07-15 23:40 | PC.NURSE ---
Pt taken to room 22. Pt 60% on RA upon arrival to room. Placed on 15L NRB. O2 saturation now 92%, EDP notified.
[2021-07-15 23:43] VITALS: O2SAT 93
[2021-07-16] VITALS (22 sets, daily range): BP systolic 103–143; BP diastolic 37–89; PULSE 84–106; RESP 18–24; TEMP 36–36.6; O2SAT 92–99; BMI 37.8
--- NOTE | 2021-07-16 | ECHO_ITS ---
Patient Info Name: Ifeanyi Olivera Age: 46 years : 1975 Gender: Female Ht: 66 in Wt: 234 lbs BSA: 2.27 m2 HR: 91 bpm BP: 103 / 40 mmHg Heart Rhythm: Sinus Rhythm Technical Quality: Fair Exam Date: 07/16/2021 11:36 AM Exam Location: [facility] Pulmonary Patient Status: Inpatient Admit Date: 07/16/2021 Staff Ordering Physician: Dionicio Collier MD Rotary Engine Assembler: Princess Odell RDCS Attending Provider: Salvador Bourgeois MD Exam Type: CA echo doppler color flow Study Info Indications - shortness of breath Complete two-dimensional, color flow and Doppler transthoracic echocardiogram is performed. Summary 1. Complete two-dimensional, color flow and Doppler transthoracic echocardiogram is performed. 2. Left ventricular systolic function is hyperdynamic, estimated at >70%. 3. There is mildly increased left ventricular wall thickness. 4. The left ventricular diastolic function is grade I diastolic dysfunction. 5. Right ventricular chamber dimension is mildly enlarged. 6. Right ventricular systolic function is normal. 7. There is mild aortic valve stenosis with a peak velocity of 180 cm/s, mean gradient of 7 mmHg, and aortic valve area of 1.8 cm2. 8. There is trace tricuspid valve regurgitation. 9. Moderate pulmonary hypertension, estimated pulmonary arterial systolic pressure is 47 mmHg. Left Ventricle Left ventricular chamber dimension is normal. Left ventricular systolic function is hyperdynamic, estimated at >70%. There is mildly increased left ventricular wall thickness. The left ventricular diastolic function is grade I diastolic dysfunction. Right Ventricle Right ventricular chamber dimension is mildly enlarged. Right ventricular systolic function is normal. Left Atria Left atrial chamber dimension is normal. Right Atria Right atrial chamber dimension is normal. Aortic Valve The aortic valve is not well visualized. There is mild aortic valve stenosis with a peak velocity of 180 cm/s, mean gradient of 7 mmHg, and aortic valve area of 1.8 cm2. There is no aortic valve regurgitation. Pulmonic Valve The pulmonic valve is not well visualized. Mitral Valve The mitral valve has normal leaflets. There is trace mitral valve regurgitation. The mitral valve annulus is mildly calcified. Tricuspid Valve The tricuspid valve leaflets are not well visualized. There is trace tricuspid valve regurgitation. Moderate pulmonary hypertension, estimated pulmonary arterial systolic pressure is 47 mmHg. Pericardium/Pleural The pericardium appears not well visualized. There is small pericardial effusion. Inferior Vena Cava Dilated inferior vena cava with >50% collapse upon inspiration consistent with elevated right atrial pressure, 10 mmHg. Aorta The aortic root size at the sinus of Valsalva is normal. The prox ascending aorta size is normal. Left Ventricular Outflow Tract Name Value Normal LVOT 2D LVOT Diameter 2.0 cm LVOT Doppler LVOT Peak Gradient 5 mmHg LVOT Mean Gradient 2 mmHg LVOT VTI 17 cm
[2021-07-16 00:22] LABS: Alveolar/Arterial O2 Gradient 543.5 mmHg; Base Excess ABG -1.5 mEq/l (+/-2.0); Carboxyhemoglobin 5.5 % THb (0-2.0); Fractional Inspired Oxygen 95 %; HCO3 ABG 25.5 mEq/l (22.0-26.0); Methemoglobin ABG 0.2 %THb (0-1.5); Oxygen Content ABG 18.4 %vol (16.0-22.0); Oxygen Saturation ABG 94.8 % (95.0-100.0); Oxyhemoglobin 88.3 % THb (90.0-100.0); PCO2 ABG 52.1 mmHg (35.0-45.0); PO2 ABG 81.1 mmHg (80.0-100.0); PO2 FiO2 Ratio Arterial Blood 0.85 %; Total Hemoglobin 14.8 g/dL (12.0-18.0); pH ABG 7.308 (7.350-7.450)
[2021-07-16 00:24] LABS: Device NON-REBREATHER MASK; Modified Allen's Test Pass; Site Drawn RIGHT RADIAL
[2021-07-16 00:28] LABS: Basophils Absolute Auto 0.1 K/mm3 (0.0-0.1); Basophils Percent Auto 0.7 % (0.2-1.2); Eosinophils Absolute Auto 0.1 K/mm3 (0-0.3); Hematocrit 44.9 % (37.0-47.0); Hemoglobin 14.1 g/dL (12.0-15.0); Immature Granulocyte Absolute 0.07 K/mm3 (0.00-0.031); Immature Granulocyte Percent A 0.7 % (0-0.5); Lymphocytes Absolute Auto 2.53 K/mm3 (0.9-3.2); Lymphocytes Percent Auto 27.1 % (18.3-44.2); Mean Corpuscular HGB Conc 31.4 g/dl (32-36); Mean Corpuscular Hemoglobin 30.1 pg (26-34); Mean Corpuscular Volume 95.7 fl (80-100); Mean Platelet Volume 11.4 fl (7.4-10.4); Monocytes Absolute Auto 0.8 K/mm3 (0.1-0.6); Neutrophils Absolute Auto 5.8 K/mm3 (1.3-6.7); Neutrophils Percent Auto 62.5 % (45.5-73.1); Nucleated Red Blood Cells Absolute Auto 0.1 K/mm3 (0.0-0.012); Nucleated Red Blood Cells Perc 1.3 % (0.0-0.2); Platelet Count Result 235 k/mm3 (150-375); Red Blood Count 4.69 M/mm3 (4.2-5.4); Red Cell Distribution Width 21.2 % (11.5-14.5); White Blood Count 9.3 K/mm3 (4.5-10.0)
[2021-07-16 00:42] LABS: Prothrombin Time 12.7 Seconds (11.1-14.7)
[2021-07-16 00:43] LABS: Partial Thromboplastin Time 25.4 SECONDS (22.3-36.8)
[2021-07-16 00:49] LABS: NT Pro B Type Natriuretic Pept 6520 pg/mL (5-100); Troponin I 0.016 ng/mL (0.000-0.034)
[2021-07-16 01:05] LABS: Alanine Aminotransferase 36 U/L (4-35); Albumin Level 4.3 g/dL (3.5-5.1); Alkaline Phosphatase 166 U/L (38-126); Anion Gap 10 mmol/L (8-16); Aspartate Amino Transferase 71 U/L (14-36); Bilirubin,Total 1.3 mg/dL (0.2-1.3); Blood Urea Nitrogen 30 mg/dL (7-17); Calcium 8.4 mg/dL (8.4-10.2); Carbon Dioxide 28 mmol/L (22-30); Chloride 89 mmol/L (98-107); Estimated Glomerular Filt Rate 28; Glucose 185 mg/dL (65-110); Potassium 3.8 mmol/L (3.4-5.0); Sodium 127 mmol/L (137-145)
[2021-07-16 01:15] LABS: EDCOVIDSCREEN Negative (Negative)
--- NOTE | 2021-07-16 01:26 | ED.SOB ---
HPI - SOB/Dyspnea General Chief Complaint: Shortness of Breath/Dyspnea Stated Complaint: SOB Time Seen by Provider: 07/16/21 00:24 Source: patient Limitations: no limitations History of Present Illness HPI Narrative: 46 years old white female came to the emergency room with shortness of breath over the last 7 days, gradually getting worse. History of CHF, COPD, chronic respiratory failure on 4 L by nasal cannula. Patient came to our hospital June 2021 with the same symptoms and got discharged on June 17. Patient on Lasix 40 mg once a day. Related Data Home Medications Medication Instructions Recorded Confirmed alprazolam 1 mg PO BID 06/15/21 06/15/21 duloxetine 60 mg PO DAILY 06/15/21 06/15/21 ibuprofen 800 mg PO Q8H 06/15/21 06/15/21 levetiracetam 1,000 mg PO BID 06/15/21 06/15/21 mirtazapine 45 mg PO HS 06/15/21 06/15/21 zolpidem 5 mg PO HS PRN 06/15/21 06/15/21 Allergies Allergy/AdvReac Type Severity Reaction Status Date / Time levofloxacin Allergy unknown Verified 07/16/21 00:07 Review of Systems Review of Systems: CONSTITUTIONAL: Denies fever, chills, or sweats. EYES: Denies visual changes, redness, or discharge. ENT: Denies rhinorrhea, congestion, sore throat, or otalgia. CARDIOVASCULAR: Denies chest pain, palpitations, or edema. RESPIRATORY: Shortness of breath GASTROINTESTINAL: Denies abdominal pain, nausea, vomiting, or diarrhea. GENITOURINARY: Denies dysuria or hematuria. SKIN: Denies rash or itching. MUSCULOSKELETAL: Denies back pain, joint pain, or myalgia. NEUROLOGIC: Denies headache, numbness, or weakness. PSYCHIATRIC: Denies anxiety or depression. 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 Her mother recently unexpectedly in August. She reports that she is now the november tree are cool figure in the family in this at some stress. Her sons are 18 in 23 years of age. She smoked up to 1.5 packs of cigarettes per day since he was a teenager but has cut down to about 0.5 packs of cigarettes per day since November 2020. She denies any significant alcohol use. She reports that she is on SSI. Smoking packs per day: 0.75 Smoking cigarettes per day: 15.0 Years smoked: 30 Smoking pack-years: 22.50 Smoking status: Current every day smoker Tobacco type: cigarettes Alcohol intake: never Substance use: current Substance use type: marijuana Last use: 06/12/21 Spiritual care concerns: No Exam Narrative: General appearance: Well-developed, well-nourished with labored breathing Skin: Normal color, ankle edema bilaterally Head: Normocephalic, nontraumatic Eyes: Clear conjunctiva ENT: Oropharynx normal, ears normal, nose normal Neck: Supple, nontender Chest and respiratory: Diminishment of air entry bilaterally, basal rales bilaterally Heart: Tachycardia Abdomen: Soft, nontender, no organomegaly, quiet bowel sounds Vascular: Normal peripheral pulses, normal capillary refill. Musculoskeletal: Normal range of motion, nontender back Neurologic: Alert and oriented ?3, DIET KITCHEN COOK is normal as tested, no gross motor deficit
[2021-07-16] MEDS: FUROSEMIDE INJ 40 MG/4 ML VIAL 60 MG IV PUSH (01:30)
[2021-07-16] MEDS: NITROGLYCERIN OINTMENT 1 INCH DOSE TRANSDERM ×4 (02:41→17:59)
--- NOTE | 2021-07-16 04:59 | ADMGEN ---
This patient, Ifeanyi Olivera, was admitted to IMU Room 212-01 on 07/16/2021 at 0320. Patient/family oriented to hospital policies and general routines including ID bracelet, bed and alarms, visiting hours, pain management, procedures, bathroom and other care routines, personal items, smoking policy, room service/diet, and visiting hours. Information on how to activate the Rapid Response Team has been discussed. Patient/Family are encouraged to report perceived risks to care and to ask questions if they do not understand what they are told or what they should do.
[2021-07-16 05:13] LABS: Alveolar/Arterial O2 Gradient 264.5 mmHg; Base Excess ABG 3.8 mEq/l (+/-2.0); Carboxyhemoglobin 2.9 % THb (0-2.0); Fractional Inspired Oxygen 60 %; HCO3 ABG 34.1 mEq/l (22.0-26.0); Methemoglobin ABG 0.3 %THb (0-1.5); Oxygen Content ABG 19.4 %vol (16.0-22.0); Oxygen Saturation ABG 92.6 % (95.0-100.0); Oxyhemoglobin 88.9 % THb (90.0-100.0); PO2 ABG 76.5 mmHg (80.0-100.0); PO2 FiO2 Ratio Arterial Blood 1.27 %; Reduced Hemoglobin 7.9 %THb (0-5.0); Total Hemoglobin 15.5 g/dL (12.0-18.0)
[2021-07-16 05:14] LABS: pH ABG 7.253 (7.350-7.450)
[2021-07-16 05:15] LABS: Device NON-REBREATHER MASK; Modified Allen's Test Unable to perform; PCO2 ABG 78.9 mmHg (35.0-45.0); Site Drawn RIGHT RADIAL
[2021-07-16 05:34] LABS: Troponin I 0.016 ng/mL (0.000-0.034)
[2021-07-16] MEDS: FUROSEMIDE INJ 40 MG/4 ML VIAL 20 MG IV PUSH ×2 (09:06→21:17)
[2021-07-16 09:24] LABS: Troponin I 0.015 ng/mL (0.000-0.034)
[2021-07-16] MEDS: SODIUM CHLORIDE 0.9% IV 1,000 ML 75 ML IV CONT (12:15)
[2021-07-16] MEDS: DULoxetine HCL 60 MG CAPSULE.DR PO (12:15)
[2021-07-16] MEDS: PREGABALIN (*CRX) 50 MG CAPSULE PO ×2 (12:16→17:59)
[2021-07-16 12:31] LABS: Alveolar/Arterial O2 Gradient 424.8 mmHg; Base Excess ABG 7.6 mEq/l (+/-2.0); Fractional Inspired Oxygen 80 %; Oxygen Content ABG 19.4 %vol (16.0-22.0); Oxygen Saturation ABG 95.5 % (95.0-100.0); Oxyhemoglobin 93.5 % THb (90.0-100.0); PO2 ABG 81.5 mmHg (80.0-100.0); PO2 FiO2 Ratio Arterial Blood 1.02 %; Total Hemoglobin 14.7 g/dL (12.0-18.0); pH ABG 7.376 (7.350-7.450)
[2021-07-16 12:33] LABS: Device NON-INVASIVE VENT; PCO2 ABG 61.1 mmHg (35.0-45.0); Site Drawn RIGHT BRACHIAL
[2021-07-16 12:34] LABS: Non-Invasive Inspiratory Pressure 18 CMH2O; Non-Invasive Vent Rate 18 /MIN
[2021-07-16 12:35] LABS: Non-Invasive Expiratory Pressure 8 CMH2O
[2021-07-16 17:03] LABS: Alveolar/Arterial O2 Gradient 409.1 mmHg; Base Excess ABG 7.2 mEq/l (+/-2.0); Fractional Inspired Oxygen 80 %; HCO3 ABG 34.7 mEq/l (22.0-26.0); Oxygen Saturation ABG 96.9 % (95.0-100.0); Oxyhemoglobin 94.8 % THb (90.0-100.0); PO2 ABG 96.2 mmHg (80.0-100.0); Total Hemoglobin 14.2 g/dL (12.0-18.0); pH ABG 7.366 (7.350-7.450)
[2021-07-16 17:04] LABS: Device BIPAP; Modified Allen's Test Pass; Site Drawn RIGHT RADIAL
[2021-07-16 17:05] LABS: Expiratory Pressure 8 cmH2O; Inspiratory Pressure 18 cmH2O
--- NOTE | 2021-07-16 17:06 | PM.IMHP ---
H&P: HPI History of Present Illness Date/Time: 07/16/21 17:06 ED-HPI Narrative: 46 years old white female came to the emergency room with shortness of breath over the last 7 days, gradually getting worse. History of CHF, COPD, chronic respiratory failure on 4 L by nasal cannula. Patient came to our hospital June 2021 with the same symptoms and got discharged on June 17. Patient on Lasix 40 mg once a day. 07/16/2021 interval history: patient currently on BiPAP unable to provide detail history review of symptoms, some of the history is recorded from electronic chart. patient presented with a shortness of breath ABG showed 7.253/ 78.9, 76.5 and BiPAP was placed in emergency depart after 4 hour on the BiPAP repeat ABG showed 7.376/61. will continue the BiPAP and repeat ABG and further recommendation to follow, patient has acute kidney injury most likely secondary to poor p.o. intake and dehydration will gently hydrate the patient and monitor, patient cardiac echo showed ejection fraction of 70% and grade 1 diastolic dysfunction, patient with history of psychiatric illness will continue home medication and monitor. 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 Her mother recently unexpectedly in August. She reports that she is now the november tree are cool figure in the family in this at some stress. Her sons are 18 in 23 years of age. She smoked up to 1.5 packs of cigarettes per day since he was a teenager but has cut down to about 0.5 packs of cigarettes per day since November 2020. She denies any significant alcohol use. She reports that she is on SSI. Smoking packs per day: 0.75 Smoking cigarettes per day: 15.0 Years smoked: 30 Smoking pack-years: 22.50 Smoking status: Current every day smoker Alcohol intake: never Substance use: current Substance use type: marijuana Last use: 06/12/21 Spiritual care concerns: No Meds Home Medications and Allergies Home Medications Medication Instructions Recorded Confirmed Type duloxetine 60 mg PO DAILY 06/15/21 07/16/21 History ibuprofen 800 mg PO Q8H 06/15/21 07/16/21 History levetiracetam 1,000 mg PO BID 06/15/21 07/16/21 History mirtazapine 45 mg PO HS 06/15/21 07/16/21 History zolpidem 5 mg PO HS PRN 06/15/21 07/16/21 History furosemide [Lasix] 40 mg PO DAILY #30 tablet 06/17/21 07/16/21 Rx pregabalin 50 mg capsule 50 mg PO TID #90 cap 07/08/21 07/16/21 Rx alprazolam 1 mg PO PRN PRN 07/16/21 07/16/21 History Allergies Allergy/AdvReac Type Severity Reaction Status Date / Time levofloxacin Allergy unknown Verified 07/16/21 00:07 Vital Signs Vital Signs - 24 hr 07/15/21 23:25 07/15/21 23:40 07/15/21 23:43 Temperature Pulse Rate 112 H Respiratory Rate 26 H Blood Pressure 130/81 Pulse Oximetry 60 L 93 07/16/21 00:00 07/16/21 00:25 07/16/21 02:02 Temperature Pulse Rate 106 H 100 Respiratory Rate 20 18 Blood Pressure 143/65 H 132/83 Pulse Oximetry 96 96 94 07/16/21 02:44 07/16/21 03:15 07/16/21 04:00 Temper
[2021-07-16] MEDS: levETIRAcetam 500 MG TABLET 1000 MG PO (17:59)
[2021-07-16] MEDS: MIRTAZAPINE 15 MG TABLET 45 MG PO (21:17)
[2021-07-17] VITALS (17 sets, daily range): BP systolic 99–124; BP diastolic 40–68; PULSE 78–98; RESP 18–22; TEMP 36.3–36.6; O2SAT 92–96
[2021-07-17 05:03] LABS: Alveolar/Arterial O2 Gradient 394.4 mmHg; Base Excess ABG 9.7 mEq/l (+/-2.0); Fractional Inspired Oxygen 75 %; Oxygen Content ABG 18.1 %vol (16.0-22.0); Oxygen Saturation ABG 94.5 % (95.0-100.0); Oxyhemoglobin 92.6 % THb (90.0-100.0); PO2 ABG 74.4 mmHg (80.0-100.0); PO2 FiO2 Ratio Arterial Blood 0.99 %; Total Hemoglobin 13.9 g/dL (12.0-18.0); pH ABG 7.393 (7.350-7.450)
[2021-07-17 05:05] LABS: PCO2 ABG 62.1 mmHg (35.0-45.0)
[2021-07-17 05:06] LABS: Device NON-INVASIVE VENT; Modified Allen's Test Pass; Non-Invasive Expiratory Pressure 8 CMH2O; Non-Invasive Inspiratory Pressure 20 CMH2O; Non-Invasive Vent Rate 20 /MIN; Site Drawn RIGHT RADIAL
[2021-07-17] MEDS: SODIUM CHLORIDE 0.9% IV 1,000 ML 75 ML IV CONT (05:46)
[2021-07-17] MEDS: NITROGLYCERIN OINTMENT 1 INCH DOSE TRANSDERM (05:46)
[2021-07-17] MEDS: ACETAMINOPHEN 500 MG TABLET 1000 MG PO (05:47)
--- NOTE | 2021-07-17 06:00 | ECG_ITS ---
Measurements Intervals [place] Rate: 79 P: 86 VT: 127 QRS: 23 QRSD: 95 T: 53 QT: 432 QTc: 497 Interpretive Statements SINUS RHYTHM DELAYED PRECORDIAL R/S TRANSITION BORDERLINE T WAVE ABNORMALITY- ANTERIOR LEADS BASELINE ARTIFACT- I, III BORDERLINE ECG Electronically Signed On 07-17-2021 9:01:59 LIVING COACH by Mathieu Restrepo D.O.
[2021-07-17 06:21] LABS: Anion Gap 2 mmol/L (8-16); Blood Urea Nitrogen 15 mg/dL (7-17); Calcium 8.1 mg/dL (8.4-10.2); Carbon Dioxide 37 mmol/L (22-30); Chloride 96 mmol/L (98-107); Estimated CRCL calculation 105 ml/min; Estimated Glomerular Filt Rate > 60; Glucose 116 mg/dL (65-110); Potassium 3.4 mmol/L (3.4-5.0); Sodium 135 mmol/L (137-145)
[2021-07-17] MEDS: FUROSEMIDE INJ 40 MG/4 ML VIAL 20 MG IV PUSH ×2 (08:59→20:57)
[2021-07-17] MEDS: levETIRAcetam 500 MG TABLET 1000 MG PO ×2 (09:01→16:10)
[2021-07-17] MEDS: DULoxetine HCL 60 MG CAPSULE.DR PO (09:01)
[2021-07-17] MEDS: PREGABALIN (*CRX) 50 MG CAPSULE PO ×3 (09:01→18:32)
--- NOTE | 2021-07-17 17:16 | PM.IMPN ---
Progress Note: A&P Assessment and Plan (1) Acute on chronic respiratory failure with hypoxia and hypercapnia: Code(s): J96.21 - Acute and chronic respiratory failure with hypoxia; J96.22 - Acute and chronic respiratory failure with hypercapnia Status: Acute Assessment and Plan: 07/16/2021 interval history: patient currently on BiPAP unable to provide detail history review of symptoms, some of the history is recorded from electronic chart. patient presented with a shortness of breath ABG showed 7.253/ 78.9, 76.5 and BiPAP was placed in emergency depart after 4 hour on the BiPAP repeat ABG showed 7.376/61.1/81 will continue the BiPAP and repeat ABG and further recommendation to follow, patient has acute kidney injury most likely secondary to poor p.o. intake and dehydration will gently hydrate the patient and monitor, patient cardiac echo showed ejection fraction of 70% and grade 1 diastolic dysfunction, patient with history of psychiatric illness will continue home medication and monitor. 07/17/2021 interval history: today patient is off BiPAP on 10 L nasal cannula, is feeling little better today and not a short of breath, patient is being hydrated her kidney function is improved her serum creatinine is 0.7 today compared 1.9 upon arrival, will continue gently hydrate the patient increase p.o. intake have PT OT evaluate the and patient and further recommendation to follow. (2) Respiratory acidosis: Code(s): E87.2 - Acidosis Status: Acute Assessment and Plan: most likely secondary to hypercapnia, with history of COPD and chronic respiratory failure on 4 L nasal cannula. (3) Acute hyponatremia: Code(s): E87.1 - Hypo-osmolality and hyponatremia Status: Acute Assessment and Plan: most likely secondary to dehydration will gently hydrate the patient and monitor sodium (4) ELA (acute kidney injury): Code(s): N17.9 - Acute kidney failure, unspecified Status: Acute Assessment and Plan: most likely secondary to poor p.o. intake gently hydrate monitor kidney function Subjective Date/time seen: 07/17/21 17:16 07/16/2021 interval history: patient currently on BiPAP unable to provide detail history review of symptoms, some of the history is recorded from electronic chart. patient presented with a shortness of breath ABG showed 7.253/ 78.9, 76.5 and BiPAP was placed in emergency depart after 4 hour on the BiPAP repeat ABG showed 7.376/61. will continue the BiPAP and repeat ABG and further recommendation to follow, patient has acute kidney injury most likely secondary to poor p.o. intake and dehydration will gently hydrate the patient and monitor, patient cardiac echo showed ejection fraction of 70% and grade 1 diastolic dysfunction, patient with history of psychiatric illness will continue home medication and monitor. 07/17/2021 interval history: today patient is off BiPAP on 10 L nasal cannula, is feeling little better today and not a short of breath, patient is being hydrated her kidney function is improved her serum creatinine is 0.7 today compared 1.9 upon arrival, will continue gently hydrate the patient increase p.o. intake have PT OT evaluate the and patient and further recommendation to follow. Review of Systems Review of Systems: All systems reviewed & are unremarkable except as noted in HPI and below Exam Narrative: Patient is comfortable, NAD HEENT: eyes are clear and none icteric on BiPAP LUNGS: normal respiratory effort ABD: distended Lower extremities: no edema SKIN: nonjaundiced Neuro: grossly intact. Objective Data Vital Signs Vital Signs: Vital Signs - 24 hr 07/16/21 18:00 07/16/21 20:00 07/16/21 22:00 Temperature 97.8 F Pulse Rate 90 87 84 Respiratory Rate 20 Blood Pressure 116/74 Pulse Oximetry 96 07/16/21 22:57 07/16/21 23:48 07/17/21 00:00 Temperature 97.8 F Pulse Rate 88 87 87 Respiratory Rate 20 22 H 22 H
[2021-07-17] MEDS: MIRTAZAPINE 15 MG TABLET 45 MG PO (20:57)
[2021-07-18] VITALS (9 sets, daily range): BP systolic 91–119; BP diastolic 57–72; PULSE 81–96; RESP 18–20; TEMP 36.5–37.1; O2SAT 92–97
--- NOTE | 2021-07-18 08:52 | P.CDI_ITS ---
CDI Query Clarification Request -CHF has been documented -Echo summary; EF >70%, grade 1 diastolic dysfunction -BNP 6520 -CXR impression: cardiomegaly, mild CHF -Lasix 60 IV x1 given in ED then 20mg IV q 12 hrs ordered Please further clarify type and acuity of CHF: * Systolic *Acute * Diastolic *Chronic * Both Systolic and Diastolic *Acute on Chronic * Unable to determine *Unable to determine <Rula Hernandez RN - Last Filed: 07/18/21 08:55> Clarified Diagnosis (1) Acute on chronic diastolic (congestive) heart failure: Code(s): I50.33 - Acute on chronic diastolic (congestive) heart failure <Rula Hernandez RN - Last Filed: 07/18/21 08:55> Status: Acute <Rula Hernandez RN - Last Filed: 07/18/21 08:55> Assessment and Plan: most likely patient had acute on chronic diastolic congestive heart failure <Dionicio Collier MD - Last Filed: 08/04/21 18:28>
[2021-07-18] MEDS: DULoxetine HCL 60 MG CAPSULE.DR PO (09:07)
[2021-07-18] MEDS: PREGABALIN (*CRX) 50 MG CAPSULE PO ×3 (09:07→16:24)
[2021-07-18] MEDS: FUROSEMIDE INJ 40 MG/4 ML VIAL 20 MG IV PUSH ×2 (09:07→21:55)
[2021-07-18] MEDS: levETIRAcetam 500 MG TABLET 1000 MG PO ×2 (09:07→16:24)
[2021-07-18 09:38] LABS: Hemoglobin 14.6 g/dL (12.0-15.0); Mean Corpuscular HGB Conc 31.1 g/dl (32-36); Mean Corpuscular Hemoglobin 29.6 pg (26-34); Mean Corpuscular Volume 95.3 fl (80-100); Mean Platelet Volume 10.3 fl (7.4-10.4); Platelet Count Result 181 k/mm3 (150-375); Red Blood Count 4.93 M/mm3 (4.2-5.4); Red Cell Distribution Width 19.6 % (11.5-14.5); White Blood Count 6.5 K/mm3 (4.5-10.0)
[2021-07-18 09:52] LABS: Blood Urea Nitrogen 14 mg/dL (7-17); Calcium 8.6 mg/dL (8.4-10.2); Carbon Dioxide > 40 mmol/L (22-30); Chloride 95 mmol/L (98-107); Estimated CRCL calculation 93 ml/min; Estimated Glomerular Filt Rate > 60; Glucose 95 mg/dL (65-110); Magnesium 2.2 mg/dL (1.6-2.3); Potassium 3.4 mmol/L (3.4-5.0); Sodium 137 mmol/L (137-145)
--- NOTE | 2021-07-18 16:28 | PM.IMPN ---
Progress Note: A&P Assessment and Plan (1) Acute on chronic respiratory failure with hypoxia and hypercapnia: Code(s): J96.21 - Acute and chronic respiratory failure with hypoxia; J96.22 - Acute and chronic respiratory failure with hypercapnia Status: Acute Assessment and Plan: 07/16/2021 interval history: patient currently on BiPAP unable to provide detail history review of symptoms, some of the history is recorded from electronic chart. patient presented with a shortness of breath ABG showed 7.253/ 78.9, 76.5 and BiPAP was placed in emergency depart after 4 hour on the BiPAP repeat ABG showed 7.376/61.1/81 will continue the BiPAP and repeat ABG and further recommendation to follow, patient has acute kidney injury most likely secondary to poor p.o. intake and dehydration will gently hydrate the patient and monitor, patient cardiac echo showed ejection fraction of 70% and grade 1 diastolic dysfunction, patient with history of psychiatric illness will continue home medication and monitor. 07/17/2021 interval history: today patient is off BiPAP on 10 L nasal cannula, is feeling little better today and not a short of breath, patient is being hydrated her kidney function is improved her serum creatinine is 0.7 today compared 1.9 upon arrival, will continue gently hydrate the patient increase p.o. intake have PT OT evaluate the and patient and further recommendation to follow. 07/18/2021 interval history: patient remains on high-flow oxygen, feeling better today patient kidney function is improved and stable, patient remains clinically stable, will move the patient out of IMU and transfer the medical floor, continue present management will have PT OT evaluate the patient and further recommendation to follow. (2) Respiratory acidosis: Code(s): E87.2 - Acidosis Status: Acute Assessment and Plan: most likely secondary to hypercapnia, with history of COPD and chronic respiratory failure on 4 L nasal cannula. (3) Acute hyponatremia: Code(s): E87.1 - Hypo-osmolality and hyponatremia Status: Acute Assessment and Plan: most likely secondary to dehydration will gently hydrate the patient and monitor sodium (4) ELA (acute kidney injury): Code(s): N17.9 - Acute kidney failure, unspecified Status: Acute Assessment and Plan: most likely secondary to poor p.o. intake gently hydrate monitor kidney function Subjective Date/time seen: 07/18/21 16:28 07/16/2021 interval history: patient currently on BiPAP unable to provide detail history review of symptoms, some of the history is recorded from electronic chart. patient presented with a shortness of breath ABG showed 7.253/ 78.9, 76.5 and BiPAP was placed in emergency depart after 4 hour on the BiPAP repeat ABG showed 7.376/61.1/81 will continue the BiPAP and repeat ABG and further recommendation to follow, patient has acute kidney injury most likely secondary to poor p.o. intake and dehydration will gently hydrate the patient and monitor, patient cardiac echo showed ejection fraction of 70% and grade 1 diastolic dysfunction, patient with history of psychiatric illness will continue home medication and monitor. 07/17/2021 interval history: today patient is off BiPAP on 10 L nasal cannula, is feeling little better today and not a short of breath, patient is being hydrated her kidney function is improved her serum creatinine is 0.7 today compared 1.9 upon arrival, will continue gently hydrate the patient increase p.o. intake have PT OT evaluate the and patient and further recommendation to follow. 07/18/2021 interval history: patient remains on high-flow oxygen, feeling better today patient kidney function is improved and stable, patient remains clinically stable, will move the patient out of IMU and transfer the medical floor, continue present management will have PT OT evaluate the patient and further recommendation to follow. Mora
--- NOTE | 2021-07-18 18:55 | ADMGEN ---
This patient, Ifeanyi Olivera, was transfered from IMU to [facility] S[facility] Room 321-01 at 1840. Patient/family oriented to hospital policies and general routines including ID bracelet, bed and alarms, visiting hours, pain management, procedures, bathroom and other care routines, personal items, smoking policy, room service/diet, and visiting hours. Information on how to activate the Rapid Response Team has been discussed. Patient/Family are encouraged to report perceived risks to care and to ask questions if they do not understand what they are told or what they should do.
[2021-07-18] MEDS: MIRTAZAPINE 15 MG TABLET 45 MG PO (21:56)
[2021-07-19 00:28] VITALS: PULSE 82; RESP 20; O2SAT 98
[2021-07-19 06:00] VITALS: BP 125/63; PULSE 82; RESP 16; TEMP 36.2; O2SAT 91
[2021-07-19 08:09] LABS: Anion Gap 5 mmol/L (8-16); Blood Urea Nitrogen 17 mg/dL (7-17); Carbon Dioxide 37 mmol/L (22-30); Chloride 96 mmol/L (98-107); Estimated CRCL calculation 82 ml/min; Estimated Glomerular Filt Rate > 60; Glucose 117 mg/dL (65-110); Potassium 3.6 mmol/L (3.4-5.0); Sodium 138 mmol/L (137-145)
[2021-07-19 08:41] LABS: Hemoglobin 14.8 g/dL (12.0-15.0); Mean Corpuscular HGB Conc 31.5 g/dl (32-36); Mean Corpuscular Hemoglobin 29.4 pg (26-34); Mean Corpuscular Volume 93.4 fl (80-100); Mean Platelet Volume 10.9 fl (7.4-10.4); Platelet Count Result 222 k/mm3 (150-375); Red Blood Count 5.03 M/mm3 (4.2-5.4); Red Cell Distribution Width 19.1 % (11.5-14.5); White Blood Count 6.6 K/mm3 (4.5-10.0)
[2021-07-19] MEDS: FUROSEMIDE INJ 40 MG/4 ML VIAL 20 MG IV PUSH ×2 (08:59→20:43)
[2021-07-19] MEDS: PREGABALIN (*CRX) 50 MG CAPSULE PO ×3 (08:59→16:21)
[2021-07-19] MEDS: levETIRAcetam 500 MG TABLET 1000 MG PO ×2 (08:59→16:21)
[2021-07-19] MEDS: DULoxetine HCL 60 MG CAPSULE.DR PO (08:59)
[2021-07-19 09:55] VITALS: O2SAT 97
[2021-07-19] MEDS: ALPRAZolam (*CRX) 0.5 MG TABLET PO ×2 (12:44→20:42)
--- NOTE | 2021-07-19 13:54 | PM.IMPN ---
Progress Note: A&P Assessment and Plan (1) Acute on chronic respiratory failure with hypoxia and hypercapnia: Code(s): J96.21 - Acute and chronic respiratory failure with hypoxia; J96.22 - Acute and chronic respiratory failure with hypercapnia Status: Acute Assessment and Plan: 07/16/2021 interval history: patient currently on BiPAP unable to provide detail history review of symptoms, some of the history is recorded from electronic chart. patient presented with a shortness of breath ABG showed 7.253/ 78.9, 76.5 and BiPAP was placed in emergency depart after 4 hour on the BiPAP repeat ABG showed 7.376/61./ will continue the BiPAP and repeat ABG and further recommendation to follow, patient has acute kidney injury most likely secondary to poor p.o. intake and dehydration will gently hydrate the patient and monitor, patient cardiac echo showed ejection fraction of 70% and grade 1 diastolic dysfunction, patient with history of psychiatric illness will continue home medication and monitor. 07/17/2021 interval history: today patient is off BiPAP on 10 L nasal cannula, is feeling little better today and not a short of breath, patient is being hydrated her kidney function is improved her serum creatinine is 0.7 today compared 1.9 upon arrival, will continue gently hydrate the patient increase p.o. intake have PT OT evaluate the and patient and further recommendation to follow. 07/18/2021 interval history: patient remains on high-flow oxygen, feeling better today patient kidney function is improved and stable, patient remains clinically stable, will move the patient out of IMU and transfer the medical floor, continue present management will have PT OT evaluate the patient and further recommendation to follow. 07/19/2021 interval history: patient with chronic respiratory for on home oxygen 3 L however, patient remains on high-flow oxygen, feeling better today patient kidney function is improved and stable, patient remains clinically stable, will move the patient out of IMU and transfer the medical floor, continue present, plan is to continue present managed and wean patient off high-flow oxygen, if patient's requiring less than 5-6 L of oxygen on Wednesday will discharge the patient, management will have PT OT evaluate the patient and further recommendation to follow. (2) Respiratory acidosis: Code(s): E87.2 - Acidosis Status: Acute Assessment and Plan: most likely secondary to hypercapnia, with history of COPD and chronic respiratory failure on 4 L nasal cannula. (3) Acute hyponatremia: Code(s): E87.1 - Hypo-osmolality and hyponatremia Status: Acute Assessment and Plan: most likely secondary to dehydration will gently hydrate the patient and monitor sodium (4) ELA (acute kidney injury): Code(s): N17.9 - Acute kidney failure, unspecified Status: Acute Assessment and Plan: most likely secondary to poor p.o. intake gently hydrate monitor kidney function Subjective Date/time seen: 07/19/21 13:54 07/16/2021 interval history: patient currently on BiPAP unable to provide detail history review of symptoms, some of the history is recorded from electronic chart. patient presented with a shortness of breath ABG showed 7.253/ 78.9, 76.5 and BiPAP was placed in emergency depart after 4 hour on the BiPAP repeat ABG showed 7.376/61.1/81 will continue the BiPAP and repeat ABG and further recommendation to follow, patient has acute kidney injury most likely secondary to poor p.o. intake and dehydration will gently hydrate the patient and monitor, patient cardiac echo showed ejection fraction of 70% and grade 1 diastolic dysfunction, patient with history of psychiatric illness will continue home medication and monitor. 07/17/2021 interval history: today patient is off BiPAP on 10 L nasal cannula, is feeling little better today and not a short of breath, patient is being hydrated her kidney fu
[2021-07-19 14:00] VITALS: BP 110/74; PULSE 88; RESP 14; TEMP 36.2; O2SAT 93
[2021-07-19 16:22] VITALS: O2SAT 92
[2021-07-19] MEDS: MIRTAZAPINE 15 MG TABLET 45 MG PO (20:43)
[2021-07-19 22:00] VITALS: BP 115/73; PULSE 77; RESP 16; TEMP 36.2; O2SAT 93
[2021-07-20 06:00] VITALS: BP 106/64; PULSE 81; RESP 16; TEMP 36.1; O2SAT 93
[2021-07-20 06:48] LABS: Hematocrit 49.5 % (37.0-47.0); Hemoglobin 15.6 g/dL (12.0-15.0); Mean Corpuscular HGB Conc 31.5 g/dl (32-36); Mean Corpuscular Hemoglobin 28.8 pg (26-34); Mean Corpuscular Volume 91.3 fl (80-100); Mean Platelet Volume 10.3 fl (7.4-10.4); Platelet Count Result 227 k/mm3 (150-375); Red Blood Count 5.42 M/mm3 (4.2-5.4); Red Cell Distribution Width 18.8 % (11.5-14.5); White Blood Count 6.4 K/mm3 (4.5-10.0)
[2021-07-20 06:59] LABS: Anion Gap 8 mmol/L (8-16); Blood Urea Nitrogen 19 mg/dL (7-17); Calcium 9.3 mg/dL (8.4-10.2); Carbon Dioxide 32 mmol/L (22-30); Chloride 97 mmol/L (98-107); Estimated CRCL calculation 82 ml/min; Estimated Glomerular Filt Rate > 60; Glucose 119 mg/dL (65-110); Potassium 3.6 mmol/L (3.4-5.0); Sodium 137 mmol/L (137-145)
[2021-07-20 08:00] VITALS: O2SAT 93
[2021-07-20] MEDS: levETIRAcetam 500 MG TABLET 1000 MG PO ×2 (08:05→16:41)
[2021-07-20] MEDS: DULoxetine HCL 60 MG CAPSULE.DR PO (08:05)
[2021-07-20] MEDS: PREGABALIN (*CRX) 50 MG CAPSULE PO ×3 (08:05→16:41)
[2021-07-20] MEDS: ALPRAZolam (*CRX) 0.5 MG TABLET PO ×2 (08:07→22:02)
[2021-07-20] MEDS: FUROSEMIDE 40 MG TABLET PO (09:36)
--- NOTE | 2021-07-20 10:59 | PM.IMPN ---
Progress Note: A&P Assessment and Plan (1) Acute on chronic respiratory failure with hypoxia and hypercapnia: Code(s): J96.21 - Acute and chronic respiratory failure with hypoxia; J96.22 - Acute and chronic respiratory failure with hypercapnia Status: Acute Assessment and Plan: 07/16/2021 interval history: patient currently on BiPAP unable to provide detail history review of symptoms, some of the history is recorded from electronic chart. patient presented with a shortness of breath ABG showed 7.253/ 78.9, 76.5 and BiPAP was placed in emergency depart after 4 hour on the BiPAP repeat ABG showed 7.376/61./ will continue the BiPAP and repeat ABG and further recommendation to follow, patient has acute kidney injury most likely secondary to poor p.o. intake and dehydration will gently hydrate the patient and monitor, patient cardiac echo showed ejection fraction of 70% and grade 1 diastolic dysfunction, patient with history of psychiatric illness will continue home medication and monitor. 07/17/2021 interval history: today patient is off BiPAP on 10 L nasal cannula, is feeling little better today and not a short of breath, patient is being hydrated her kidney function is improved her serum creatinine is 0.7 today compared 1.9 upon arrival, will continue gently hydrate the patient increase p.o. intake have PT OT evaluate the and patient and further recommendation to follow. 07/18/2021 interval history: patient remains on high-flow oxygen, feeling better today patient kidney function is improved and stable, patient remains clinically stable, will move the patient out of IMU and transfer the medical floor, continue present management will have PT OT evaluate the patient and further recommendation to follow. 07/19/2021 interval history: patient with chronic respiratory for on home oxygen 3 L however, patient remains on high-flow oxygen, feeling better today patient kidney function is improved and stable, patient remains clinically stable, will move the patient out of IMU and transfer the medical floor, continue present, plan is to continue present managed and wean patient off high-flow oxygen, if patient's requiring less than 5-6 L of oxygen on Wednesday will discharge the patient, management will have PT OT evaluate the patient and further recommendation to follow. 07/20/2021 interval history: patient with chronic respiratory failure on home oxygen 3 L however, patient presented was placed on BiPAP, now patient remains on high-flow oxygen, feeling better today patient kidney function is improved and stable, patient remains clinically stable, l moveed the patient out of IMU and transfer the medical floor, [facility], plan is to continue present managed and wean patient off high-flow oxygen, patient clinical symptoms are improved and creatinine is rising will will stop the IV Lasix and switch her over to p.o., will continue to monitor, if patient's requiring less than 5-6 L of oxygen on Wednesday will discharge the patient, will have PT OT evaluate the patient and further recommendation to follow. (2) Respiratory acidosis: Code(s): E87.2 - Acidosis Status: Acute Assessment and Plan: most likely secondary to hypercapnia, with history of COPD and chronic respiratory failure on 4 L nasal cannula. (3) Acute hyponatremia: Code(s): E87.1 - Hypo-osmolality and hyponatremia Status: Acute Assessment and Plan: most likely secondary to dehydration will gently hydrate the patient and monitor sodium (4) ELA (acute kidney injury): Code(s): N17.9 - Acute kidney failure, unspecified Status: Acute Assessment and Plan: most likely secondary to poor p.o. intake gently hydrate monitor kidney function Subjective Date/time seen: 07/20/21 10:59 07/16/2021 interval history: patient currently on BiPAP unable to provide detail history review of symptoms, some of the history is recorded from electronic ch
[2021-07-20 13:46] VITALS: BP 110/66; PULSE 98; RESP 16; TEMP 36.6; O2SAT 94
[2021-07-20 20:00] VITALS: O2SAT 93
[2021-07-20 22:00] VITALS: BP 111/56; PULSE 84; RESP 20; O2SAT 93
[2021-07-20] MEDS: MIRTAZAPINE 15 MG TABLET 45 MG PO (22:02)
[2021-07-21 06:00] VITALS: BP 102/50; PULSE 82; RESP 18; TEMP 36.1; O2SAT 93
[2021-07-21 09:22] LABS: Hematocrit 49.7 % (37.0-47.0); Hemoglobin 15.9 g/dL (12.0-15.0); Mean Corpuscular Hemoglobin 29.1 pg (26-34); Mean Platelet Volume 10.4 fl (7.4-10.4); Platelet Count Result 249 k/mm3 (150-375); Red Blood Count 5.46 M/mm3 (4.2-5.4); Red Cell Distribution Width 18.7 % (11.5-14.5); White Blood Count 6.6 K/mm3 (4.5-10.0)
[2021-07-21 09:35] LABS: Anion Gap 6 mmol/L (8-16); Blood Urea Nitrogen 20 mg/dL (7-17); Calcium 9.4 mg/dL (8.4-10.2); Carbon Dioxide 32 mmol/L (22-30); Chloride 99 mmol/L (98-107); Estimated CRCL calculation 91 ml/min; Estimated Glomerular Filt Rate > 60; Glucose 119 mg/dL (65-110); Potassium 3.6 mmol/L (3.4-5.0); Sodium 137 mmol/L (137-145)
[2021-07-21] MEDS: PREGABALIN (*CRX) 50 MG CAPSULE PO (10:16)
[2021-07-21] MEDS: levETIRAcetam 500 MG TABLET 1000 MG PO (10:16)
[2021-07-21] MEDS: ALPRAZolam (*CRX) 0.5 MG TABLET PO (10:16)
[2021-07-21] MEDS: FUROSEMIDE 40 MG TABLET PO (10:16)
[2021-07-21] MEDS: DULoxetine HCL 60 MG CAPSULE.DR PO (10:16)
[2021-07-21 12:51] VITALS: PULSE 84; O2SAT 91
[2021-07-21 13:00] VITALS: PULSE 88; O2SAT 87; O2SAT 89
--- NOTE | 2021-07-21 13:01 | HOMEO2EVAL ---
Evaluation was performed at [facility] Home Oxygen Evaluation RC: Home Oxygen (O2) Evaluation Start: 07/21/21 09:48 Freq: ONCE Status: Active Protocol: RPE Activity Type Activity Date Activity User E-Sign Co-Sign Detail Recorded Client Recorded Date Recorded By Document 07/21/21 12:51 KRM [id number] 07/21/21 13:01 KRM Document 07/21/21 13:00 KRM [id number] 07/21/21 13:01 KRM Document 07/21/21 13:00 KRM [id number] 07/21/21 13:01 KRM 07/21/21 07/21/21 07/21/21 12:51 13:00 13:00 Home O2 Evaluation Test Phase Resting Exercise Exercise Oxygen Delivery Nasal Cannula Nasal Cannula Nasal Cannula Oxygen Flow Rate (L/min) 3 3 4 Pulse Oximetry (90-100 %) 91 87 L 89 L Pulse Rate (60-100 beats/min) 84 88 88 Activity Tolerance Fair Fair Ambulation Distance (feet) 25 Ambulation Distance (meters) 7.61 Home Oxygen Evaluation Comments no changes to current home oxygen needed. pt. currently wears 3lpm at rest and 4 with activity. Treatment Charges O2 Evaluation - Inpatient
--- NOTE | 2021-07-21 13:01 | PCRCNOTE ---
PT. CURRENT HOME O2 SETTING OF 3LPM AND 4 WITH ACTIVITY ARE ADEQUATE. ON CHANGES NEEDED PER HOME OXYGEN EVALUATION.
--- NOTE | 2021-07-21 13:18 | PM.DS ---
DS: Admitting Diagnosis Discharge Date 07/21/2021 Admitting Diagnosis shortness of breath DS: Discharge Diagnosis Discharge Diagnosis (1) Acute on chronic respiratory failure with hypoxia and hypercapnia: Code(s): J96.21 - Acute and chronic respiratory failure with hypoxia; J96.22 - Acute and chronic respiratory failure with hypercapnia Status: Acute Assessment and Plan: 07/16/2021 interval history: patient currently on BiPAP unable to provide detail history review of symptoms, some of the history is recorded from electronic chart. patient presented with a shortness of breath ABG showed 7.253/ 78.9, 76.5 and BiPAP was placed in emergency depart after 4 hour on the BiPAP repeat ABG showed 7.376/61.1/81 will continue the BiPAP and repeat ABG and further recommendation to follow, patient has acute kidney injury most likely secondary to poor p.o. intake and dehydration will gently hydrate the patient and monitor, patient cardiac echo showed ejection fraction of 70% and grade 1 diastolic dysfunction, patient with history of psychiatric illness will continue home medication and monitor. 07/17/2021 interval history: today patient is off BiPAP on 10 L nasal cannula, is feeling little better today and not a short of breath, patient is being hydrated her kidney function is improved her serum creatinine is 0.7 today compared 1.9 upon arrival, will continue gently hydrate the patient increase p.o. intake have PT OT evaluate the and patient and further recommendation to follow. 07/18/2021 interval history: patient remains on high-flow oxygen, feeling better today patient kidney function is improved and stable, patient remains clinically stable, will move the patient out of IMU and transfer the medical floor, continue present management will have PT OT evaluate the patient and further recommendation to follow. 07/19/2021 interval history: patient with chronic respiratory for on home oxygen 3 L however, patient remains on high-flow oxygen, feeling better today patient kidney function is improved and stable, patient remains clinically stable, will move the patient out of IMU and transfer the medical floor, continue present, plan is to continue present managed and wean patient off high-flow oxygen, if patient's requiring less than 5-6 L of oxygen on Wednesday will discharge the patient, management will have PT OT evaluate the patient and further recommendation to follow. 07/20/2021 interval history: patient with chronic respiratory failure on home oxygen 3 L however, patient presented was placed on BiPAP, now patient remains on high-flow oxygen, feeling better today patient kidney function is improved and stable, patient remains clinically stable, l moveed the patient out of IMU and transfer the medical floor, [facility], plan is to continue present managed and wean patient off high-flow oxygen, patient clinical symptoms are improved and creatinine is rising will will stop the IV Lasix and switch her over to p.o., will continue to monitor, if patient's requiring less than 5-6 L of oxygen on Wednesday will discharge the patient, will have PT OT evaluate the patient and further recommendation to follow. (2) Respiratory acidosis: Code(s): E87.2 - Acidosis Status: Acute Assessment and Plan: most likely secondary to hypercapnia, with history of COPD and chronic respiratory failure on 4 L nasal cannula. (3) Acute hyponatremia: Code(s): E87.1 - Hypo-osmolality and hyponatremia Status: Acute Assessment and Plan: most likely secondary to dehydration will gently hydrate the patient and monitor sodium (4) ELA (acute kidney injury): Code(s): N17.9 - Acute kidney failure, unspecified Status: Acute Assessment and Plan: most likely secondary to poor p.o. intake gently hydrate monitor kidney function DS: Summary Hospital Course Reason for hospitalization: ED-HPI Narrative: 46 years old white female
[2021-07-21 14:00] VITALS: BP 107/57; PULSE 85; RESP 18; TEMP 36.4; O2SAT 90
== END 2021-07-21 15:10 | disposition home or self-care (01) | DRG 189 ==
LOC: ANHED 07-16 01:46 → ANHIMU 07-16 02:24 → ANH3MEDSUR 07-18 18:44
PROVIDERS: Emergency Medicine; Family Medicine; Admitting Provider Internal Medicine; Emergency Provider Emergency Medicine; PCP Family Medicine; Visit Provider Internal Medicine
DX: J96.21 Acute and chronic respiratory failure with hypoxia (principal); E87.2 Acidosis; E87.1 Hypo-osmolality and hyponatremia; N17.9 Acute kidney failure, unspecified; Z20.822 Contact with and (suspected) exposure to COVID-19; J96.22 Acute and chronic respiratory failure with hypercapnia; Z99.81 Dependence on supplemental oxygen; I50.9 Heart failure, unspecified; J43.9 Emphysema, unspecified; F17.210 Nicotine dependence, cigarettes, uncomplicated; Z79.899 Other long term (current) drug therapy
CPT/HCPCS: 36415; 36600; 71046; 80048; 80053; 82375; 82805; 83050; 83735; 83880; 84484; 85025; 85027; 85610; 85730; 87040; 87426; 93005; 93306; 94002; 94003; 94618; 96374; 97161; 97165; 99285; A9270; C9803; J0131; J1940; J7030

== ENCOUNTER 2021-09-10 00:26 | Inpatient (IN) | payer MEDICARE, MEDICAID, SELFPAY ==
[2021-09-10] VITALS (65 sets, daily range): BP systolic 95–134; BP diastolic 45–97; PULSE 89–118; RESP 12–32; TEMP 35.6–36.6; O2SAT 36–100; BMI 39.6
--- NOTE | ~2021-09-10 | XR_ITS ---
XR chest 1V portable DATE: 09/10/2021 01:25 INDICATION: Shortness of breath. History of COPD. Smoker. TECHNIQUE: Portable upright AP chest on 09/10/2021 at 0119 hours COMPARISON: 07/16/2021 PA and lateral chest FINDINGS: There is patchy infiltrate in the mid and particularly lower lung zones, most prominent in the left lower lung. There is pulmonary vascular congestion and redistribution. There is minimal if a ny pleural effusion. Cardiomegaly. No pneumothorax. Diffuse osteopenia. IMPRESSION: Pulmonary vascular congestion and left upper and bilateral mid and lower lung infiltrates , greater on the left; differential diagnosis for the infiltrates includes pulmonary edema, pneumonia Dr. Engel telephoned the report on 09/10/2021 at 0738 hours to emergency room physician Dr. Kam. Reviewed, dictated and finalized at location A. L MAIL [employer]OR IMPRESSION: Pulmonary vascular congestion and left upper and bilateral mid and lower lung infiltrates, greater on the left; differential diagnosis for the inf iltrates includes pulmonary edema, pneumonia Dr. Engel telephoned the report on 09/10/2021 at 0738 hours to emergency room phys icialona Kam.
--- NOTE | 2021-09-10 00:31 | ECG_ITS ---
Measurements Intervals Badger Rate: 117 P: 76 ND: 116 QRS: -21 QRSD: 82 T: 31 QT: 324 QTc: 454 Interpretive Statements SINUS TACHYCARDIA WITH SHORT ND INTERVAL POSSIBLE LEFT ATRIAL ENLARGEMENT [-0.1mV P-WAVE IN V1/V2] MODERATE ST DEPRESSION [0.05+ mV ST DEPRESSION] ABNORMAL EKG COMPARED TO ECG 07/17/2021 08:37:02 SINUS T[address]YCARDIA NOW PRESENT ST (T WAVE) DEVIATION NOW PRESENT Electronically Signed On 09-10-2021 9:06:36 METAL FURNACE OPERATOR by Davian Leon M.D.
[2021-09-10] MEDS: ALBUTEROL SULFATE NEB 2.5 MG/0.5 ML INH 15 MG INHALATION (00:44)
[2021-09-10] MEDS: IPRATROPIUM BR 0.02% INH SOLN 0.5 MG/2.5 ML VIAL 1.5 MG INHALATION (00:44)
--- NOTE | 2021-09-10 00:58 | ED.GENADULT ---
HPI - General Adult General Chief complaint: Unspecified Stated complaint: sob Time Seen by Provider: 09/10/21 00:27 Source: patient, family, RN notes reviewed and old records reviewed History of Present Illness HPI narrative: Patient presents with shortness of breath. In for worsening shortness of breath over the past couple days reported history of CHF and COPD. Denies any focal areas of pain have not noted any fevers or congestion. Denies any focal areas of pain. Related Data Home Medications Medication Instructions Recorded Confirmed duloxetine 60 mg PO DAILY 06/15/21 07/16/21 ibuprofen 800 mg PO Q8H 06/15/21 07/16/21 levetiracetam 1,000 mg PO BID 06/15/21 07/16/21 mirtazapine 45 mg PO HS 06/15/21 07/16/21 zolpidem 5 mg PO HS PRN 06/15/21 07/16/21 alprazolam 1 mg PO PRN PRN 07/16/21 07/16/21 Allergies Allergy/AdvReac Type Severity Reaction Status Date / Time levofloxacin Allergy unknown Verified 07/16/21 00:07 Review of Systems Review of Systems: CONSTITUTIONAL: Denies fever, chills, or sweats. EYES: Denies visual changes, redness, or discharge. ENT: Denies rhinorrhea, congestion, sore throat, or otalgia. CARDIOVASCULAR: Denies chest pain, palpitations, or edema. RESPIRATORY: Reports cough and shortness of breath GASTROINTESTINAL: Denies abdominal pain, nausea, vomiting, or diarrhea. GENITOURINARY: Denies dysuria or hematuria. SKIN: Denies rash or itching. MUSCULOSKELETAL: Denies back pain, joint pain, or myalgia. NEUROLOGIC: Denies headache, numbness, dizziness, or weakness. PSYCHIATRIC: Denies anxiety or depression. 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 Her mother recently unexpectedly in August. She reports that she is now the november tree are cool figure in the family in this at some stress. Her sons are 18 in 23 years of age. She smoked up to 1.5 packs of cigarettes per day since he was a teenager but has cut down to about 0.5 packs of cigarettes per day since November 2020. She denies any significant alcohol use. She reports that she is on SSI. Smoking packs per day: 0.75 Smoking cigarettes per day: 15.0 Years smoked: 30 Smoking pack-years: 22.50 Smoking status: Current every day smoker Alcohol intake: never Substance use: current Substance use type: marijuana Last use: 06/12/21 Spiritual care concerns: No Exam Narrative: GENERAL: In mild distress due to shortness of breath HEAD: Normocephalic, atraumatic. EYES: PERRLA and EOMI. ENT: Nares clear, no rhinorrhea or epistaxis. Mucous membranes moist. NECK: Supple. No masses. No JVD CHEST: Diminished aeration in all lung candelario increased work of breathing moderate respiratory distress HEART: Regular tachycardia. No murmur heard. Normal peripheral pulses. ABDOMEN: Soft, nontender, nondistended, normal active bowel sounds. EXTREMITIES: Normal range of motion. No edema. SKIN: Warm, dry, no rash. NEURO: No focal deficits. Alert and oriented x3. PSYCH: Normal mood and affect. Course Reevaluation(s) Reevaluation #1: Patient feeling improved after initiation of BiPAP. Date: 09/10/21 Time: 00:58 Reevaluation #2: Patient hamzah
[2021-09-10] MEDS: methylPREDNISolone SOD SUCC 125 MG VIAL IV PUSH (01:01)
[2021-09-10 01:08] LABS: Basophils Absolute Auto 0.1 K/mm3 (0.0-0.1); Basophils Percent Auto 0.9 % (0.2-1.2); Eosinophils Percent Auto 0.4 % (0-4.4); Hematocrit 48.6 % (37.0-47.0); Hemoglobin 14.8 g/dL (12.0-15.0); Immature Granulocyte Absolute 0.12 K/mm3 (0.00-0.031); Immature Granulocyte Percent A 1.1 % (0-0.5); Lymphocytes Absolute Auto 2.31 K/mm3 (0.9-3.2); Lymphocytes Percent Auto 21.7 % (18.3-44.2); Mean Corpuscular HGB Conc 30.5 g/dl (32-36); Mean Corpuscular Hemoglobin 29.4 pg (26-34); Mean Corpuscular Volume 96.4 fl (80-100); Mean Platelet Volume 10.5 fl (7.4-10.4); Monocytes Absolute Auto 0.9 K/mm3 (0.1-0.6); Monocytes Percent Auto 8.5 % (2.6-8.5); Neutrophils Absolute Auto 7.2 K/mm3 (1.3-6.7); Neutrophils Percent Auto 67.4 % (45.5-73.1); Nucleated Red Blood Cells Absolute Auto 0.1 K/mm3 (0.0-0.012); Nucleated Red Blood Cells Perc 0.5 % (0.0-0.2); Platelet Count Result 271 k/mm3 (150-375); Red Blood Count 5.04 M/mm3 (4.2-5.4); Red Cell Distribution Width 20.1 % (11.5-14.5); White Blood Count 10.7 K/mm3 (4.5-10.0)
[2021-09-10 01:12] LABS: Alveolar/Arterial O2 Gradient 530.4 mmHg; Fractional Inspired Oxygen 100 %; HCO3 ABG 26.3 mEq/l (22.0-26.0); Oxygen Content ABG 20.5 %vol (16.0-22.0); Oxygen Saturation ABG 97.9 % (95.0-100.0); Oxyhemoglobin 93.5 % THb (90.0-100.0); PCO2 ABG 59.7 mmHg (35.0-45.0); PO2 ABG 122.9 mmHg (80.0-100.0); PO2 FiO2 Ratio Arterial Blood 1.23 %; Total Hemoglobin 15.5 g/dL (12.0-18.0)
[2021-09-10 01:15] LABS: Device NON-INVASIVE VENT; Modified Allen's Test Pass; Site Drawn LEFT RADIAL; pH ABG 7.262 (7.350-7.450)
[2021-09-10 01:15] LABS: Lactic Acid Reflex 3.5 mmol/L (0.7-2.1)
[2021-09-10 01:16] LABS: Non-Invasive Expiratory Pressure 5 CMH2O; Non-Invasive Inspiratory Pressure 10 CMH2O; Non-Invasive Vent Rate 4 /MIN
[2021-09-10 01:22] LABS: Alanine Aminotransferase 41 U/L (4-35); Albumin Level 4.5 g/dL (3.5-5.1); Alkaline Phosphatase 143 U/L (38-126); Anion Gap 12 mmol/L (8-16); Aspartate Amino Transferase 55 U/L (14-36); Bilirubin,Total 1.1 mg/dL (0.2-1.3); Blood Urea Nitrogen 16 mg/dL (7-17); Calcium 8.1 mg/dL (8.4-10.2); Carbon Dioxide 30 mmol/L (22-30); Chloride 92 mmol/L (98-107); D Dimer 0.27 ug/mL (<0.48); Estimated CRCL calculation 62 ml/min; Estimated Glomerular Filt Rate 44; Glucose 282 mg/dL (65-110); Potassium 4.1 mmol/L (3.4-5.0); Sodium 134 mmol/L (137-145)
[2021-09-10 01:24] LABS: NT Pro B Type Natriuretic Pept 2130 pg/mL (5-100)
[2021-09-10 01:55] LABS: SARS-CoV-2 RNA PCR Negative
[2021-09-10] MEDS: FUROSEMIDE INJ 40 MG/4 ML VIAL IV PUSH ×2 (02:35→09:05)
[2021-09-10 03:11] LABS: Add Urine Microscopic? YES; Appearance Urine Clear (Clear); Bacteria Urine Trace /hpf; Bilirubin Urine Negative (Negative); Blood Urine Negative (Negative); Color Urine Yellow (Yellow); Glucose Urine UA Negative (Negative); Ketones Urine Negative (Negative); Leukocyte Esterase Ur 1+ LEU/UL (Negative); Mucus Urine Rare /lpf; Nitrate Urine Negative (Negative); Protein Urine Negative (Negative); RBC Urine 0-2 /hpf (0-2); Specific Grav Ur 1.009 (1.001-1.035); Squamous Epithelial Cell Urine Few /hpf (Few); Urobilinogen Urine Negative mg/dL (<2.0)
--- NOTE | 2021-09-10 03:20 | PM.IMHP ---
H&P: HPI History of Present Illness Date/Time: 09/10/21 03:20 Chief Complaint: Shortness of breath. Narrative: This is a 46-year-old female with past medical history significant for tobacco dependence patient smokes half pack of cigarettes daily, COPD/emphysema, chronic hypoxic respiratory failure on supplemental oxygen by nasal cannula at home 3 L at rest and 4 L with activity,diastolic heart failure, neuropathy, obesity, seizure disorder. Patient presents to the emergency room due to worsening shortness of breath at the time of my visit patient is on BiPAP and in moderate respiratory distress when exerted can only speak 2-3 words and has to stop to take a deep breath. Most of the history has been obtained upon reviewing medical records from emergency room on past hospitalizations. Patient with multiple hospitalizations in the past due to COPD exacerbation. Preliminary workup was significant for ABG with a pH 7.2 pCO2 of 59 PO2 122 this was while on non-rebreather mask. Chest x-ray showed diffuse infiltrates. Decision has been made to admit the patient for further evaluation, management and treatment. Review of Systems Review of Systems: ROS unobtainable: Yes unobtainable due to medical condition (Patient on BiPAP and significantly short of breath when exertion) PMFSH Past Medical History Medical History Anxiety Bipolar disorder CHF (congestive heart failure) Chronic respiratory failure Hypoxic and hypercarbic Emphysema/COPD Neuropathy Due to drug toxicity with Topamax Obesity Seizure disorder Surgical History Surgical History History of 2 sections History of endometrial ablation Hx of cholecystectomy Family History Family History Sibling Acute myocardial infarction Social History Social History Social History: She reports that she lives with her mother, 2 sons and her brother. Her mother recently unexpectedly in August. She reports that she is now the november tree are cool figure in the family in this at some stress. Her sons are 18 in 23 years of age. She smoked up to 1.5 packs of cigarettes per day since he was a teenager but has cut down to about 0.5 packs of cigarettes per day since November 2020. She denies any significant alcohol use. She reports that she is on SSI. Smoking packs per day: 0.75 Smoking cigarettes per day: 15.0 Years smoked: 30 Smoking pack-years: 22.50 Smoking status: Current every day smoker Alcohol intake: never Substance use: current Substance use type: marijuana Last use: 06/12/21 Spiritual care concerns: No Meds Home Medications and Allergies Home Medications Medication Instructions Recorded Confirmed Type duloxetine 60 mg PO DAILY 06/15/21 07/16/21 History ibuprofen 800 mg PO Q8H 06/15/21 07/16/21 History levetiracetam 1,000 mg PO BID 06/15/21 07/16/21 History mirtazapine 45 mg PO HS 06/15/21 07/16/21 History zolpidem 5 mg PO HS PRN 06/15/21 07/16/21 History furosemide [Lasix] 40 mg PO DAILY #30 tablet 06/17/21 07/16/21 Rx alprazolam 1 mg PO PRN PRN 07/16/21 07/16/21 History pregabalin 50 mg capsule 50 mg PO TID #90 cap 09/02/21 Rx Allergies Allergy/AdvReac Type Severity Reaction Status Date / Time levofloxacin Allergy unknown Verified 07/16/21 00:07 Vital Signs Vital Signs - 24 hr 09/10/21 00:31 09/10/21 00:35 09/10/21 01:00 Temperature 96.7 F L Pulse Rate 117 H 116 H 116 H Respiratory Rate 32 H 20 20 Blood Pressure 99/81 L 124/83 Pulse Oximetry 36 L 100 100 09/10/21 01:08 09/10/21 02:30 09/10/21 02:34 Temperature Pulse Rate 117 H 108 H 107 H Respiratory Rate 21 H 22 H 16 Blood Pressure 120/67 Pulse Oximetry 100 100 09/10/21 02:52 Temperature Pulse Rate Respiratory Rate Blood
[2021-09-10 04:03] LABS: Reflex Lactic Acid Yes or No Add Lactic
[2021-09-10 06:10] LABS: Lactic Acid 2.8 mmol/L (0.7-2.1)
[2021-09-10] MEDS: methylPREDNISolone SOD SUCC 125 MG VIAL 60 MG IV PUSH ×3 (06:25→18:11)
--- NOTE | 2021-09-10 06:55 | ADMGEN ---
This patient, Ifeanyi Olivera, was admitted to IMU Room 214-01. Patient/family oriented to hospital policies and general routines including ID bracelet, bed and alarms, visiting hours, pain management, procedures, bathroom and other care routines, personal items, smoking policy, room service/diet, and visiting hours. Information on how to activate the Rapid Response Team has been discussed. Patient/Family are encouraged to report perceived risks to care and to ask questions if they do not understand what they are told or what they should do.
[2021-09-10] MEDS: ALBUTEROL SULFATE NEB 2.5 MG/0.5 ML INH 5 MG INHALATION ×3 (08:11→20:25)
[2021-09-10] MEDS: IPRATROPIUM BR 0.02% INH SOLN 0.5 MG/2.5 ML VIAL INHALATION ×3 (08:11→20:25)
[2021-09-10 08:34] LABS: Glucose Point of Care 203 mg/dl (65-105)
[2021-09-10] MEDS: INSULIN ASPART (*BKC) 100 UNITS/ML 6 UNITS SUB-Q ×3 (09:01→17:51)
[2021-09-10 12:37] LABS: Glucose Point of Care 200 mg/dl (65-105)
--- NOTE | 2021-09-10 15:17 | PM.IMPN ---
Progress Note: A&P Assessment and Plan (1) Acute on chronic respiratory failure with hypoxia and hypercapnia: Code(s): J96.21 - Acute and chronic respiratory failure with hypoxia; J96.22 - Acute and chronic respiratory failure with hypercapnia Status: Acute Assessment and Plan: Likely secondary to COPD exacerbation/emphysema Patient is currently on BiPAP order ABG and wean off accordingly (2) COPD exacerbation: Code(s): J44.1 - Chronic obstructive pulmonary disease with (acute) exacerbation Status: Acute Assessment and Plan: Continue iv steroids, iv azithromycin and nebulizer treatments (3) Acute on chronic diastolic (congestive) heart failure: Code(s): I50.33 - Acute on chronic diastolic (congestive) heart failure Status: Acute Assessment and Plan: Patient with grade 1 diastolic heart failure. Continue to diuresis with IV lasix order BMP (4) Morbid obesity with BMI of 40.0-44.9, adult: Code(s): E66.01 - Morbid (severe) obesity due to excess calories; Z68.41 - Body mass index [BMI] 40.0-44.9, adult Status: Acute Assessment and Plan: 1800 calorie restricted diet (5) Tobacco dependence due to cigarettes: Code(s): F17.210 - Nicotine dependence, cigarettes, uncomplicated Status: Acute Assessment and Plan: Nicotine patch ordered Subjective Date/time seen: 09/10/21 15:17 Interval history: 46-year-old female with past medical history significant for tobacco dependence patient smokes half pack of cigarettes daily, COPD/emphysema, chronic hypoxic respiratory failure on supplemental oxygen by nasal cannula at home 3 L at rest and 4 L with activity,diastolic heart failure, neuropathy, obesity, seizure disorder. Pt is on the bipap resting well Review of Systems Review of Systems: All systems reviewed & are unremarkable except as noted in HPI and below Exam Narrative: Patient is wearing BIPAP in the room Resp: Auscultation: diminished lung sounds Cardio: Jugular venous distension: no JVD Rate: regular rate Rhythm: regular rhythm Heart sounds: S1 normal heart sound present and S2 normal heart sound present GI: Inspection: obesity Neuro: General: patient oriented x3, CN's II-XI intact bilaterally and Unable to assess gait Cranial nerves: Yes CN's II-XII intact bilaterally and Yes Equal, round and reactive pupils present Cognition (Neuro): normal cognition Speech: normal speech Gait exam (Neuro): Unable to assess gait Motor exam (neuro): 5/5 motor strength present throughout Extrem: General: normal to inspection, full ROM, no joint enlargement and no pedal edema Objective Data Vital Signs Vital Signs: Vital Signs - 24 hr 09/10/21 00:31 09/10/21 00:35 09/10/21 01:00 Temperature 35.9 C L Pulse Rate 117 H 116 H 116 H Respiratory Rate 32 H 20 20 Blood Pressure 99/81 L 124/83 Pulse Oximetry 36 L 100 100 09/10/21 01:05 09/10/21 01:07 09/10/21 01:08 Temperature Pulse Rate 118 H 117 H 117 H Respiratory Rate 19 20 21 H Blood Pressure 124/83 Pulse Oximetry 93 100 09/10/21 01:15 09/10/21 01:30 09/10/21 01:32 Temperature Pulse Rate 115 H 115 H 114 H Respiratory Rate 17 18 18 Blood Pressure 123/84 Pulse Oximetry 100 100 100 09/10/21 01:45 09/10/21 02:00 09/10/21 02:02 Temperature Pulse Rate 112 H 111 H 111 H Respiratory Rate 18 16 18 Blood Pressure 123/85 Pulse Oximetry 100 100 09/10/21 02:15 09/10/21 02:30 09/10/21 02:32 Temperature Pulse Rate 108 H 107 H 107 H Respiratory Rate 16 14 15 Blood Pressure 116/45 L Pulse Oximetry 100 09/10/21 02:34 09/10/21 02:36 09/10/21 02:45 Temperature Pulse Rate 107 H 107 H 110 H Respiratory Rate 16 15 28 H Blood Pressure 120/67 120/67 Pulse Oximetry 100 100 09/10/21 02:52 09/10/21 03:00 09/10/21 03:02 Temperature Pulse Rate 109 H 108 H Respiratory Rate 21 H 15 Blood Pressure 124/62 Pulse Oximetry 99 96
[2021-09-10 15:58] LABS: Alveolar/Arterial O2 Gradient 290.8 mmHg; Base Excess ABG 2.8 mEq/l (+/-2.0); Fractional Inspired Oxygen 60 %; HCO3 ABG 29.6 mEq/l (22.0-26.0); Oxygen Content ABG 20.6 %vol (16.0-22.0); Oxygen Saturation ABG 94.9 % (95.0-100.0); PCO2 ABG 53.5 mmHg (35.0-45.0); PO2 ABG 78.2 mmHg (80.0-100.0); Total Hemoglobin 15.6 g/dL (12.0-18.0); pH ABG 7.361 (7.350-7.450)
[2021-09-10 15:59] LABS: Device BIPAP; Modified Allen's Test Pass; Site Drawn LEFT RADIAL
[2021-09-10 16:00] LABS: Expiratory Pressure 5 cmH2O; Inspiratory Pressure 10 cmH2O
[2021-09-10 16:42] LABS: Glucose Point of Care 224 mg/dl (65-105)
[2021-09-10] MEDS: DULoxetine HCL 60 MG CAPSULE.DR PO (17:54)
[2021-09-10] MEDS: PREGABALIN (*CRX) 50 MG CAPSULE PO (18:11)
[2021-09-10 20:17] LABS: Glucose Point of Care 244 mg/dl (65-105)
[2021-09-10] MEDS: MIRTAZAPINE 30 MG TABLET PO (20:26)
[2021-09-10] MEDS: ALPRAZolam (*CRX) 0.5 MG TABLET 1 MG PO (20:27)
[2021-09-10] MEDS: levETIRAcetam 500 MG TABLET 1000 MG PO (20:27)
[2021-09-10] MEDS: MIRTAZAPINE 15 MG TABLET PO (20:28)
[2021-09-11] VITALS (27 sets, daily range): BP systolic 84–124; BP diastolic 51–67; PULSE 86–109; RESP 12–22; TEMP 36–36.7; O2SAT 89–99
[2021-09-11] MEDS: IPRATROPIUM BR 0.02% INH SOLN 0.5 MG/2.5 ML VIAL INHALATION ×4 (02:15→20:07)
[2021-09-11] MEDS: ALBUTEROL SULFATE NEB 2.5 MG/0.5 ML INH 5 MG INHALATION ×4 (02:15→20:07)
[2021-09-11] MEDS: methylPREDNISolone SOD SUCC 125 MG VIAL 60 MG IV PUSH ×2 (06:27)
[2021-09-11 06:34] LABS: Potassium 4.6 mmol/L (3.4-5.0)
[2021-09-11 06:57] LABS: Anion Gap 4 mmol/L (8-16); Blood Urea Nitrogen 19 mg/dL (7-17); Calcium 8.8 mg/dL (8.4-10.2); Carbon Dioxide 35 mmol/L (22-30); Chloride 98 mmol/L (98-107); Estimated CRCL calculation 96 ml/min; Estimated Glomerular Filt Rate > 60; Glucose 167 mg/dL (65-110); Sodium 137 mmol/L (137-145)
[2021-09-11 08:30] LABS: Basophils Percent Auto 0.2 % (0.2-1.2); Hematocrit 48.4 % (37.0-47.0); Hemoglobin 14.3 g/dL (12.0-15.0); Immature Granulocyte Absolute 0.07 K/mm3 (0.00-0.031); Immature Granulocyte Percent A 0.7 % (0-0.5); Lymphocytes Absolute Auto 0.99 K/mm3 (0.9-3.2); Lymphocytes Percent Auto 9.5 % (18.3-44.2); Mean Corpuscular HGB Conc 29.5 g/dl (32-36); Mean Corpuscular Hemoglobin 29.2 pg (26-34); Mean Corpuscular Volume 98.8 fl (80-100); Mean Platelet Volume 11.5 fl (7.4-10.4); Monocytes Absolute Auto 0.7 K/mm3 (0.1-0.6); Monocytes Percent Auto 6.7 % (2.6-8.5); Neutrophils Absolute Auto 8.6 K/mm3 (1.3-6.7); Neutrophils Percent Auto 82.9 % (45.5-73.1); Platelet Count Result 154 k/mm3 (150-375); Red Cell Distribution Width 19.3 % (11.5-14.5); White Blood Count 10.4 K/mm3 (4.5-10.0)
[2021-09-11 08:48] LABS: Magnesium 2.4 mg/dL (1.6-2.3)
[2021-09-11 08:50] LABS: Glucose Point of Care 210 mg/dl (65-105)
[2021-09-11 08:59] LABS: NT Pro B Type Natriuretic Pept 507 pg/mL (5-100)
[2021-09-11] MEDS: DULoxetine HCL 60 MG CAPSULE.DR PO (09:04)
[2021-09-11] MEDS: FUROSEMIDE 40 MG TABLET PO (09:04)
[2021-09-11] MEDS: levETIRAcetam 500 MG TABLET 1000 MG PO ×2 (09:04→20:29)
[2021-09-11] MEDS: NICOTINE (*PBKC) 14 MG PATCH 1 PATCH TRANSDERM (09:05)
[2021-09-11] MEDS: INSULIN ASPART (*BKC) 100 UNITS/ML 6 UNITS SUB-Q ×3 (09:15→16:45)
[2021-09-11] MEDS: PREGABALIN (*CRX) 50 MG CAPSULE PO ×3 (09:20→16:45)
[2021-09-11 09:38] LABS: Hemoglobin A1C 5.4 % (<5.7)
--- NOTE | 2021-09-11 10:15 | PM.IMPN ---
Progress Note: A&P Assessment and Plan (1) Acute on chronic respiratory failure with hypoxia and hypercapnia: Code(s): J96.21 - Acute and chronic respiratory failure with hypoxia; J96.22 - Acute and chronic respiratory failure with hypercapnia Status: Acute Assessment and Plan: Secondary to tobacco abuse patient on 4-5 L at home she wears a CPAP at night BiPAP 10/5 titrate oxygen to maintain a saturation of 90% ABG did show hypercapnia. Current ABG with pH of 7.361, CO2 53.5, O2 78.2, bicarb 29.6, saturation of 94.9 current saturation is 97% on 6 L advised nurse to wean supplemental oxygen down to maintain a saturation of 88% (2) COPD exacerbation: Code(s): J44.1 - Chronic obstructive pulmonary disease with (acute) exacerbation Status: Acute Assessment and Plan: Not convinced this is an acute exacerbation She denies increased sputum production, increased wheezes, but does have need for increased oxygen Continue iv steroids IV azithromycin and nebulizer treatments Continue BIpap PRN Smoking cessation will need to be a priority for this patient Educated about neb treatments being able to be done QID at home (3) Acute on chronic diastolic (congestive) heart failure: Code(s): I50.33 - Acute on chronic diastolic (congestive) heart failure Status: Acute Assessment and Plan: Patient with grade 1 diastolic heart failure and EF of >70% on the last ECHO in [facility] Continue Furosemide 40mg PO daily Consider PRN IV lasix BNP is 507 Trend urine output Daily weights (4) Morbid obesity with BMI of 40.0-44.9, adult: Code(s): E66.01 - Morbid (severe) obesity due to excess calories; Z68.41 - Body mass index [BMI] 40.0-44.9, adult Status: Acute Assessment and Plan: 1800 calorie restricted diet (5) Tobacco dependence due to cigarettes: Code(s): F17.210 - Nicotine dependence, cigarettes, uncomplicated Status: Acute Assessment and Plan: Nicotine patch ordered and is on She does take Chantix at home she says I do not think this patient will quit, due to several factors including she smokes in her house, and seems to not be compliant with Chantix Subjective Date/time seen: 09/11/21 10:15 Interval history: Date/Time: 09/10/21 03:20 Chief Complaint: Shortness of breath. Narrative: This is a 46-year-old female with past medical history significant for tobacco dependence patient smokes half pack of cigarettes daily, COPD/emphysema, chronic hypoxic respiratory failure on supplemental oxygen by nasal cannula at home 3 L at rest and 4 L with activity,diastolic heart failure, neuropathy, obesity, seizure disorder. Patient presents to the emergency room due to worsening shortness of breath at the time of my visit patient is on BiPAP and in moderate respiratory distress when exerted can only speak 2-3 words and has to stop to take a deep breath. Most of the history has been obtained upon reviewing medical records from emergency room on past hospitalizations. Patient with multiple hospitalizations in the past due to COPD exacerbation. Preliminary workup was significant for ABG with a pH 7.2 pCO2 of 59 PO2 122 this was while on non-rebreather mask. Chest x-ray showed diffuse infiltrates. Decision has been made to admit the patient for further evaluation, management and treatment. Date/time seen: 09/10/21 15:17 Interval history: 46-year-old female with past medical history significant for tobacco dependence patient smokes half pack of cigarettes daily, COPD/emphysema, chronic hypoxic respiratory failure on supplemental oxygen by nasal cannula at home 3 L at rest and 4 L with activity,diastolic heart failure, neuropathy, obesity, seizure disorder. Pt is on the bipap resting well Date/Time 09/11/21 1015 Patient was resting in bed. Patient did state that she felt a lot better and back
[2021-09-11 12:27] LABS: Glucose Point of Care 174 mg/dl (65-105)
[2021-09-11] MEDS: ENOXAPARIN 40 MG/0.4 ML SYRINGE SUB-Q (12:37)
--- NOTE | 2021-09-11 13:04 | PC.NURSE ---
1300- report called to CHRISS Nieto on 3 medical.
--- NOTE | 2021-09-11 13:36 | PC.NURSE ---
1320-pt transferred to room 349 via wheelchair. Pt's son with pt. Pt belongings with pt, which includes cell phone, clothes, and O2 tank.
[2021-09-11 16:26] LABS: Glucose Point of Care 169 mg/dl (65-105)
[2021-09-11] MEDS: methylPREDNISolone SOD SUCC 40 MG VIAL IV PUSH (16:46)
[2021-09-11] MEDS: MIRTAZAPINE 15 MG TABLET PO (20:30)
[2021-09-11] MEDS: MIRTAZAPINE 30 MG TABLET PO (20:30)
[2021-09-11] MEDS: ALPRAZolam (*CRX) 0.5 MG TABLET 1 MG PO (20:31)
[2021-09-11 23:22] LABS: Glucose Point of Care 167 mg/dl (65-105)
[2021-09-12] VITALS (10 sets, daily range): BP systolic 103–105; BP diastolic 55–61; PULSE 78–104; RESP 16–20; TEMP 36.1–37; O2SAT 93–99
[2021-09-12] MEDS: IPRATROPIUM BR 0.02% INH SOLN 0.5 MG/2.5 ML VIAL INHALATION ×2 (02:11→08:31)
[2021-09-12] MEDS: ALBUTEROL SULFATE NEB 2.5 MG/0.5 ML INH 5 MG INHALATION ×2 (02:11→08:31)
[2021-09-12 05:16] LABS: Basophils Percent Auto 0.1 % (0.2-1.2); Hematocrit 46.1 % (37.0-47.0); Hemoglobin 13.8 g/dL (12.0-15.0); Immature Granulocyte Absolute 0.07 K/mm3 (0.00-0.031); Immature Granulocyte Percent A 0.8 % (0-0.5); Lymphocytes Absolute Auto 1.47 K/mm3 (0.9-3.2); Lymphocytes Percent Auto 15.9 % (18.3-44.2); Mean Corpuscular HGB Conc 29.9 g/dl (32-36); Mean Corpuscular Hemoglobin 28.6 pg (26-34); Mean Corpuscular Volume 95.4 fl (80-100); Mean Platelet Volume 10.5 fl (7.4-10.4); Monocytes Absolute Auto 0.6 K/mm3 (0.1-0.6); Neutrophils Absolute Auto 7.1 K/mm3 (1.3-6.7); Neutrophils Percent Auto 77.2 % (45.5-73.1); Platelet Count Result 171 k/mm3 (150-375); Red Blood Count 4.83 M/mm3 (4.2-5.4); Red Cell Distribution Width 19.4 % (11.5-14.5); White Blood Count 9.2 K/mm3 (4.5-10.0)
[2021-09-12 05:37] LABS: Alanine Aminotransferase 30 U/L (4-35); Albumin Level 3.5 g/dL (3.5-5.1); Alkaline Phosphatase 105 U/L (38-126); Anion Gap 5 mmol/L (8-16); Aspartate Amino Transferase 27 U/L (14-36); Bilirubin,Total 0.5 mg/dL (0.2-1.3); Blood Urea Nitrogen 24 mg/dL (7-17); Calcium 8.3 mg/dL (8.4-10.2); Carbon Dioxide 38 mmol/L (22-30); Chloride 97 mmol/L (98-107); Estimated CRCL calculation 86 ml/min; Estimated Glomerular Filt Rate > 60; Glucose 149 mg/dL (65-110); Magnesium 2.4 mg/dL (1.6-2.3); Potassium 4.1 mmol/L (3.4-5.0); Sodium 140 mmol/L (137-145)
[2021-09-12 05:50] LABS: Anisocytosis 2+ (NORMAL); Platelet Estimate Adequate (Adequate)
[2021-09-12 07:59] LABS: Glucose Point of Care 124 mg/dl (65-105)
[2021-09-12] MEDS: levETIRAcetam 500 MG TABLET 1000 MG PO (08:33)
[2021-09-12] MEDS: DULoxetine HCL 60 MG CAPSULE.DR PO (08:33)
[2021-09-12] MEDS: INSULIN ASPART (*BKC) 100 UNITS/ML 6 UNITS SUB-Q ×2 (08:33→12:19)
[2021-09-12] MEDS: ENOXAPARIN 40 MG/0.4 ML SYRINGE SUB-Q (08:33)
[2021-09-12] MEDS: FUROSEMIDE 40 MG TABLET PO (08:33)
[2021-09-12] MEDS: NICOTINE (*PBKC) 14 MG PATCH 1 PATCH TRANSDERM (08:34)
[2021-09-12] MEDS: methylPREDNISolone SOD SUCC 40 MG VIAL IV PUSH (08:34)
[2021-09-12] MEDS: PREGABALIN (*CRX) 50 MG CAPSULE PO ×2 (08:36→12:18)
--- NOTE | 2021-09-12 09:36 | P.DS_ITS ---
DS: Admitting Diagnosis Discharge Date 09/12/21929 Admitting Diagnosis COPD exacerbation DS: Discharge Diagnosis Discharge Diagnosis (1) Acute on chronic respiratory failure with hypoxia and hypercapnia: Code(s): J96.21 - Acute and chronic respiratory failure with hypoxia; J96.22 - Acute and chronic respiratory failure with hypercapnia Status: Acute Assessment and Plan: * Secondary to tobacco abuse * patient on 4-5 L at home * she wears a CPAP at night * BiPAP 10/5 titrate oxygen to maintain a saturation of 90% * ABG did show hypercapnia. Current ABG with pH of 7.361, CO2 53.5, O2 78.2, bicarb 29.6, saturation of 94.9 * current saturation is 97% on 6 L * advised nurse to wean supplemental oxygen down to maintain a saturation of 88% (2) COPD exacerbation: Code(s): J44.1 - Chronic obstructive pulmonary disease with (acute) exacerbation Status: Acute Assessment and Plan: * Not convinced this is an acute exacerbation * She denies increased sputum production, increased wheezes, but does have need for increased oxygen * Continue iv steroids * IV azithromycin and nebulizer treatments * Continue BIpap PRN * Smoking cessation will need to be a priority for this patient * Educated about neb treatments being able to be done QID at home (3) Acute on chronic diastolic (congestive) heart failure: Code(s): I50.33 - Acute on chronic diastolic (congestive) heart failure Status: Acute Assessment and Plan: * Patient with grade 1 diastolic heart failure and EF of >70% on the last ECHO in * Continue Furosemide 40mg PO daily * Consider PRN IV lasix * BNP is 507 * Trend urine output * Daily weights (4) Morbid obesity with BMI of 40.0-44.9, adult: Code(s): E66.01 - Morbid (severe) obesity due to excess calories; Z68.41 - Body mass index [BMI] 40.0-44.9, adult Status: Acute Assessment and Plan: * 1800 calorie restricted diet (5) Tobacco dependence due to cigarettes: Code(s): F17.210 - Nicotine dependence, cigarettes, uncomplicated Status: Acute Assessment and Plan: * Nicotine patch ordered and is on * She does take Chantix at home she says * I do not think this patient will quit, due to several factors including she smokes in her house, and seems to not be compliant with Chantix DS: Summary Hospital Course Hospital Course: Patient is a 46-year-old female with a past medical history of bipolar disorder, CHF, chronic respiratory failure on 3-5 L at home, COPD, neuropathy, seizures who presented to the ED for evaluation worsening shortness of breath. Patient was placed on BiPAP. ABG upon admission showed pH of 7.2, CO2 of 59, PO2 of 122 while on a non-rebreather. Chest x-ray showed diffuse infiltrates. Patient was started on IV Solu-Medrol and azithromycin. Patient has been able to be off of BiPAP during the day and able to maintain her saturations at her home O2 requirements. Patient still has a cough which she states is dry. Today patient states that she feels like she is back to her baseline and is ready to go home. Smoking cessation education has been provided for more than 10 minutes. Explained to the patient that if she continues to smoke that she probably will due to the fact that she is already at high l evels of oxygen at this time. Patient voiced understanding. I also explained that she should consider painting her house. At arrival patient did have a slightly elevat
--- NOTE | 2021-09-12 09:36 | PM.DS ---
DS: Admitting Diagnosis Discharge Date 09/12/21929 Admitting Diagnosis COPD exacerbation DS: Discharge Diagnosis Discharge Diagnosis (1) Acute on chronic respiratory failure with hypoxia and hypercapnia: Code(s): J96.21 - Acute and chronic respiratory failure with hypoxia; J96.22 - Acute and chronic respiratory failure with hypercapnia Status: Acute Assessment and Plan: Secondary to tobacco abuse patient on 4-5 L at home she wears a CPAP at night BiPAP 10/5 titrate oxygen to maintain a saturation of 90% ABG did show hypercapnia. Current ABG with pH of 7.361, CO2 53.5, O2 78.2, bicarb 29.6, saturation of 94.9 current saturation is 97% on 6 L advised nurse to wean supplemental oxygen down to maintain a saturation of 88% (2) COPD exacerbation: Code(s): J44.1 - Chronic obstructive pulmonary disease with (acute) exacerbation Status: Acute Assessment and Plan: Not convinced this is an acute exacerbation She denies increased sputum production, increased wheezes, but does have need for increased oxygen Continue iv steroids IV azithromycin and nebulizer treatments Continue BIpap PRN Smoking cessation will need to be a priority for this patient Educated about neb treatments being able to be done QID at home (3) Acute on chronic diastolic (congestive) heart failure: Code(s): I50.33 - Acute on chronic diastolic (congestive) heart failure Status: Acute Assessment and Plan: Patient with grade 1 diastolic heart failure and EF of >70% on the last ECHO in [facility] Continue Furosemide 40mg PO daily Consider PRN IV lasix BNP is 507 Trend urine output Daily weights (4) Morbid obesity with BMI of 40.0-44.9, adult: Code(s): E66.01 - Morbid (severe) obesity due to excess calories; Z68.41 - Body mass index [BMI] 40.0-44.9, adult Status: Acute Assessment and Plan: 1800 calorie restricted diet (5) Tobacco dependence due to cigarettes: Code(s): F17.210 - Nicotine dependence, cigarettes, uncomplicated Status: Acute Assessment and Plan: Nicotine patch ordered and is on She does take Chantix at home she says I do not think this patient will quit, due to several factors including she smokes in her house, and seems to not be compliant with Chantix DS: Summary Hospital Course Hospital Course: Patient is a 46-year-old female with a past medical history of bipolar disorder, CHF, chronic respiratory failure on 3-5 L at home, COPD, neuropathy, seizures who presented to the ED for evaluation worsening shortness of breath. Patient was placed on BiPAP. ABG upon admission showed pH of 7.2, CO2 of 59, PO2 of 122 while on a non-rebreather. Chest x-ray showed diffuse infiltrates. Patient was started on IV Solu-Medrol and azithromycin. Patient has been able to be off of BiPAP during the day and able to maintain her saturations at her home O2 requirements. Patient still has a cough which she states is dry. Today patient states that she feels like she is back to her baseline and is ready to go home. Smoking cessation education has been provided for more than 10 minutes. Explained to the patient that if she continues to smoke that she probably will due to the fact that she is already at high levels of oxygen at this time. Patient voiced understanding. I also explained that she should consider painting her house. At arrival patient did have a slightly elevated creatinine which has corrected with IV Fluids. All of her labs seem to be at baseline. She is denying chest pain, shortness of breath, nausea, vomiting, diarrhea, constipation, weakness, or fatigue. Patient also has an appointment with her oncology patient navigator in Wednesday. She does have chantix at home. She is stable for discharge. Time spent discussing smoking cessation with patient: more than 10 minutes Status at Discharge Functional status at
[2021-09-12 11:42] LABS: Glucose Point of Care 104 mg/dl (65-105)
== END 2021-09-12 12:28 | disposition home or self-care (01) | DRG 189 ==
LOC: ANHED 02:46 → ANHIMU 06:06 → ANH3MED 09-12 10:11 → ANHIMU 09-15 12:14
PROVIDERS: Family Medicine; Admitting Provider Internal Medicine; Emergency Provider Emergency Medicine; PCP Family Medicine; Visit Provider Nurse Practitioner
DX: J96.21 Acute and chronic respiratory failure with hypoxia (principal); I50.33 Acute on chronic diastolic (congestive) heart failure; Z68.41 Body mass index [BMI] 40.0-44.9, adult; J43.9 Emphysema, unspecified; J96.22 Acute and chronic respiratory failure with hypercapnia; F17.210 Nicotine dependence, cigarettes, uncomplicated; Z20.822 Contact with and (suspected) exposure to COVID-19; F41.9 Anxiety disorder, unspecified; G62.9 Polyneuropathy, unspecified; E66.01 Morbid (severe) obesity due to excess calories; Z99.81 Dependence on supplemental oxygen; G40.909 Epilepsy, unspecified, not intractable, without status epilepticus; Z79.899 Other long term (current) drug therapy; Z79.1 Long term (current) use of non-steroidal anti-inflammatories (NSAID)
CPT/HCPCS: 36415; 36600; 71045; 80048; 80053; 81001; 82805; 82948; 83036; 83605; 83735; 83880; 85025; 85380; 93005; 94002; 94003; 94640; 96365; 96375; 96376; 97161; 97165; 99291; A9270; C9803; G0378; J0456; J1650; J1815; J1940; J2920; J2930; J7120; U0003; U0005

== ENCOUNTER 2021-10-12 23:16 | Inpatient (IN) | payer MEDICARE, MEDICAID, SELFPAY ==
--- NOTE | ~2021-10-12 | CT_ITS ---
EXAMINATION: CTA chest PE protocol DATE: 10/13/2021 09:29 INDICATION: Dyspnea. TECHNIQUE: Computed tomography angiography (CTA) of the chest was performed with 100 mL Omnipaque-350 intravenous contrast timed to evaluate the pulmonary arteries. Coronal maximum intensity projection 3D-reconstructions were created by the technologist. Automated exposure control and iterative reconst ruction technique were employed. The dose-length product was 888.35 mGy-cm. COMPARISON: None. FINDINGS: There is mild emphysema. There is diffuse septal thickening in the lungs, consistent with m ild pulmonary edema. There is mild atelectasis bilaterally. There is a 6 mm nodule in right middle lo be. There is a 4 mm nodule in right middle lobe. There is a small left pleural effusion. Tracheal bro nchomalacia is noted. Cardiomegaly is noted. No pericardial effusion. The central pulmonary arteries are enlarged, consistent with pulmonary arterial hypertension. There is no pulmonary embolus. There i s mild mediastinal lymphadenopathy. There are changes of cholecystectomy. There is mild thoracic spon dylosis. IMPRESSION: 1. No pulmonary embolus. 2. Mild pulmonary edema. 3. Small left pleural effusion. 4. Mild emphysema. 5. Pulmonary nodules measuring up to 6 mm, probably benign. Noncontrast low-dose chest CT is recommen ded in 6 months. 6. Mild mediastinal lymphadenopathy, likely reactive. Reviewed, dictated and finalized at location A. IMPRESSION: 1. No pulmonary embolus. 2. Mild pulmonary edema. 3. Small left pleural effusion. 4. Mild emphysema. 5. Pulmonary nodules measuring up to 6 mm, probably benign. Noncontrast low-dos e chest CT is recommended in 6 months. 6. Mild mediastinal lymphadenopathy, likely reactive.
--- NOTE | ~2021-10-12 | XR_ITS ---
EXAMINATION: XR chest 1V portable DATE: 10/14/2021 09:38 INDICATION: Shortness of breath TECHNIQUE: frontal view of the chest was obtained. COMPARISON: Chest radiograph dated 10/12/[address] dated 10/13/2021 FINDINGS: Mild groundglass opacity and subtle increased interstitial pattern in the bilateral lower lung zones consistent with persistent mild pulmonary edema. Bandlike discoid atelectasis in the left midlung zon e. Additional more dense opacities at the lung bases corresponding to atelectasis on prior CT with di fferential including pneumonia. Blunting at left costophrenic angle could represent persistent small left pleural effusion. Cardiomegaly. IMPRESSION: 1. Persistent opacities in the bilateral lower lung zones likely combination of mild pulmonary edema and atelectasis with differential including pneumonia. 2. Cardiomegaly. 3. Possible small left pleural effusion. Reviewed, dictated and finalized at location B.
--- NOTE | ~2021-10-12 | XR_ITS ---
EXAMINATION: XR chest 1V portable DATE: 10/13/2021 00:10 INDICATION: Shortness of breath. TECHNIQUE: A single frontal view of the chest was obtained. COMPARISON: Chest single view 09/10/2021 FINDINGS: There are airspace opacities in the lower lung zones. No pleural effusion or pneumothorax. The heart size is normal. IMPRESSION: 1. Airspace opacities in the lower lung zones, consistent with atelectasis versus pneumonia. Reviewed, dictated and finalized at location A. IMPRESSION: 1. Airspace opacities in the lower lung zones, consistent with atelectasis vers us pneumonia.
[2021-10-12 23:11] VITALS: BP 108/63; PULSE 120; RESP 40; TEMP 36.9; O2SAT 76
[2021-10-12 23:16] VITALS: O2SAT 92
--- NOTE | 2021-10-12 23:18 | ECG_ITS ---
Measurements Intervals [place] Rate: 112 P: 61 MI: 116 QRS: 5 QRSD: 84 T: 28 QT: 291 QTc: 397 Interpretive Statements SINUS TACHYCARDIA WITH SHORT MI INTERVAL LOW QRS VOLTAGE IN PRECORDIAL LEADS NONSPECIFIC ST SEGMENT ABNORMALITY Electronically Signed On 10-13-2021 14:28:19 CDT by Richie Keenan M.D.
[2021-10-12 23:46] LABS: Alveolar/Arterial O2 Gradient 245.2 mmHg; Carboxyhemoglobin 3.7 % THb (0-2.0); Fractional Inspired Oxygen 50 %; HCO3 ABG 29.8 mEq/l (22.0-26.0); Methemoglobin ABG 0.2 %THb (0-1.5); Oxygen Content ABG 18.9 %vol (16.0-22.0); Oxygen Saturation ABG 92.5 % (95.0-100.0); PO2 ABG 61.8 mmHg (80.0-100.0); PO2 FiO2 Ratio Arterial Blood 1.24 %; Reduced Hemoglobin 9.2 %THb (0-5.0); Total Hemoglobin 15.5 g/dL (12.0-18.0); pH ABG 7.448 (7.350-7.450)
[2021-10-12 23:47] LABS: Modified Allen's Test Pass; Oxyhemoglobin 86.9 % THb (90.0-100.0); Site Drawn RIGHT RADIAL
[2021-10-12 23:48] LABS: Device BIPAP; Expiratory Pressure 6 cmH2O; Inspiratory Pressure 12 cmH2O
[2021-10-12 23:54] VITALS: PULSE 112; RESP 26; O2SAT 95
[2021-10-12] MEDS: ALBUTEROL SULFATE NEB 2.5 MG/0.5 ML INH 15 MG INHALATION (23:56)
[2021-10-12] MEDS: IPRATROPIUM BR 0.02% INH SOLN 0.5 MG/2.5 ML VIAL 1.5 MG INHALATION (23:56)
[2021-10-13] VITALS (36 sets, daily range): BP systolic 106–136; BP diastolic 50–86; PULSE 91–115; RESP 20–28; TEMP 36.2–36.8; O2SAT 89–95; BMI 40.9; BMI 43.7
[2021-10-13 00:21] LABS: Basophils Percent Auto 0.3 % (0.2-1.2); Eosinophils Percent Auto 0.4 % (0-4.4); Hemoglobin 14.1 g/dL (12.0-15.0); Immature Granulocyte Absolute 0.04 K/mm3 (0.00-0.031); Immature Granulocyte Percent A 0.6 % (0-0.5); Mean Corpuscular HGB Conc 30.7 g/dl (32-36); Mean Corpuscular Hemoglobin 28.8 pg (26-34); Mean Corpuscular Volume 94.1 fl (80-100); Mean Platelet Volume 10.4 fl (7.4-10.4); Monocytes Absolute Auto 0.2 K/mm3 (0.1-0.6); Monocytes Percent Auto 3.4 % (2.6-8.5); Neutrophils Absolute Auto 5.8 K/mm3 (1.3-6.7); Neutrophils Percent Auto 81.3 % (45.5-73.1); Platelet Count Result 233 k/mm3 (150-375); Red Blood Count 4.89 M/mm3 (4.2-5.4); Red Cell Distribution Width 20.6 % (11.5-14.5); White Blood Count 7.1 K/mm3 (4.5-10.0)
[2021-10-13 00:32] LABS: Partial Thromboplastin Time 22.7 SECONDS (22.3-36.8); Prothrombin Time 12.7 Seconds (11.1-14.7)
[2021-10-13 00:38] LABS: Alanine Aminotransferase 32 U/L (4-35); Albumin Level 3.6 g/dL (3.5-5.1); Alkaline Phosphatase 161 U/L (38-126); Anion Gap 7 mmol/L (8-16); Aspartate Amino Transferase 34 U/L (14-36); Bilirubin,Total 0.7 mg/dL (0.2-1.3); Blood Urea Nitrogen 13 mg/dL (7-17); Calcium 7.8 mg/dL (8.4-10.2); Carbon Dioxide 34 mmol/L (22-30); Chloride 95 mmol/L (98-107); Estimated CRCL calculation 72 ml/min; Estimated Glomerular Filt Rate 53; Glucose 187 mg/dL (65-110); Potassium 2.9 mmol/L (3.4-5.0); Sodium 136 mmol/L (137-145)
--- NOTE | 2021-10-13 00:40 | ED.SOB ---
HPI - SOB/Dyspnea General Chief Complaint: Shortness of Breath/Dyspnea Stated Complaint: sob History of Present Illness HPI Narrative: Patient is a 46-year-old female who presents ER with sudden onset shortness of breath. EMS arrived and patient was satting in the 50s at home. Patient is typically dependent on 4 to 6 L of O2 chronically. She has a mixture of COPD and CHF. No new fevers or chills or sweats. No nonproductive cough. Patient received nebulizer treatments as well as 2 g of magnesium and IV Decadron by EMS. Patient still struggling to breathe and has mottled appearance. Related Data Home Medications Medication Instructions Recorded Confirmed albuterol sulfate 2 puff INHALATION Q4-6H PRN 10/13/21 10/13/21 albuterol sulfate 5 mg CONTINUOUS NEBULIZATION Q6H 10/13/21 10/13/21 alprazolam 1 mg PO BID 10/13/21 10/13/21 atorvastatin 10 mg PO HS 10/13/21 10/13/21 cyclobenzaprine 10 mg PO Q12H PRN 10/13/21 10/13/21 duloxetine 60 mg PO HS 10/13/21 10/13/21 furosemide 20 mg PO .DAILY AT NOON 10/13/21 10/13/21 furosemide 40 mg PO DAILY 10/13/21 10/13/21 levetiracetam 1,000 mg PO BID 10/13/21 10/13/21 mirtazapine 45 mg PO HS 10/13/21 10/13/21 nicotine 14 mg TOPICAL DAILY 10/13/21 10/13/21 pregabalin 50 mg PO TID 10/13/21 10/13/21 tiotropium bromide [Spiriva with 18 mcg INHALATION DAILY 10/13/21 10/13/21 HandiHaler] zolpidem 5 mg PO HS PRN 10/13/21 10/13/21 Allergies Allergy/AdvReac Type Severity Reaction Status Date / Time levofloxacin [From Levaquin] Allergy Hives Verified 10/12/21 23:27 Review of Systems Review of Systems: All systems reviewed & are unremarkable except as noted in HPI and below Constitutional: Constitutional: Denies chills, Denies fever(s) and Denies weakness ENT: Denies nasal congestion and Denies sore throat Cardiovascular: Cardiovascular: Denies chest pain, Denies rapid heart rate and Denies radiating jaw, neck or arm pain Respiratory: Respiratory: Reports cough, Reports dyspnea and Reports wheezing Gastrointestinal: Gastrointestinal: Denies abdominal pain, Denies nausea and Denies vomiting Neurologic: Denies headache(s), Denies focal weakness and Denies numbness [facility] Past Medical History Medical History (Updated 10/13/21 @ 05:07 by Nilesh Hermosillo MD) Anxiety Bipolar disorder CHF (congestive heart failure) Echocardiogram 07/2021: EF greater than 70%, mildly increased left ventricular wall thickness, grade 1 diastolic dysfunction, mild right ventricular enlargement, right ventricular systolic function normal, mild aortic valve stenosis with peak velocity 180 cm/s, mean gradient 7 mmHg, aortic valve area 1.8 cm2, moderate pulmonary hypertension RVSP of 47 Chronic respiratory failure Hypoxic and hypercarbic Emphysema/COPD 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 Her mother recently unexpectedly in August 2020. She reports that she is now the matriarch of the family which causes her some stress. Her sons are 19 in 24 years of age. She smoked up to 1.5 packs of cigarettes per day since he was a teenager but has cut down to about 0.5 packs of cigarettes per day since November 2020. She denies any significant alcohol use. She reports that she is on SSI. Code status: Full code Surrogate decision maker: Smoking packs per day: 0.5 Smoking cigare
[2021-10-13 00:46] LABS: NT Pro B Type Natriuretic Pept 493 pg/mL (5-100)
[2021-10-13 01:34] LABS: Alveolar/Arterial O2 Gradient 221.7 mmHg; Base Excess ABG 7.2 mEq/l (+/-2.0); Carboxyhemoglobin 3.4 % THb (0-2.0); Device BIPAP; Fractional Inspired Oxygen 50 %; HCO3 ABG 33.3 mEq/l (22.0-26.0); Methemoglobin ABG 0.3 %THb (0-1.5); Modified Allen's Test Pass; Oxygen Content ABG 19.3 %vol (16.0-22.0); Oxygen Saturation ABG 95.3 % (95.0-100.0); Oxyhemoglobin 90.6 % THb (90.0-100.0); PCO2 ABG 52.3 mmHg (35.0-45.0); PO2 FiO2 Ratio Arterial Blood 1.52 %; Reduced Hemoglobin 5.7 %THb (0-5.0); Site Drawn RIGHT BRACHIAL; Total Hemoglobin 15.1 g/dL (12.0-18.0); pH ABG 7.422 (7.350-7.450)
[2021-10-13 01:35] LABS: Expiratory Pressure 5 cmH2O; Inspiratory Pressure 10 cmH2O
[2021-10-13] MEDS: POTASSIUM CHLORIDE 20 MEQ TABLET 40 MEQ PO (01:41)
[2021-10-13 02:38] LABS: SARS-CoV-2 RNA PCR Negative
--- NOTE | 2021-10-13 03:06 | ADMGEN ---
This patient, Ifeanyi Olivera, was admitted to IMU Room 232-01 at 0306. Patient/family oriented to hospital policies and general routines including ID bracelet, bed and alarms, visiting hours, pain management, procedures, bathroom and other care routines, personal items, smoking policy, room service/diet, and visiting hours. Information on how to activate the Rapid Response Team has been discussed. Patient/Family are encouraged to report perceived risks to care and to ask questions if they do not understand what they are told or what they should do.
[2021-10-13] MEDS: IPRATROPIUM BR 0.02% INH SOLN 0.5 MG/2.5 ML VIAL INHALATION ×4 (03:12→21:49)
[2021-10-13] MEDS: ALBUTEROL SULFATE NEB 2.5 MG/0.5 ML INH 5 MG INHALATION ×3 (03:12→13:28)
--- NOTE | 2021-10-13 03:17 | PM.IMHP ---
H&P: HPI History of Present Illness Date/Time: 10/13/21 03:17 Chief Complaint: Shortness of breath Narrative: 46-year-old female with medical history of morbid obesity, COPD, diastolic CHF, pulmonary hypertension, and continued tobacco use who presented to the ER via EMS due to acute on chronic shortness of breath. The patient reports that for the last 3 or 4 days had been having increased shortness of breath despite being on her home oxygen of 4-5 L. In fact, she had turned her oxygen up to 6 L and was still only satting 50% when EMS arrived at her home. In the field the patient had received magnesium sulfate, Decadron and a continuous neb. on arrival to the ER the patient reported that she felt better. She is placed on BiPAP 12/6 with a rate of 22. She was pulling large tidal volumes on BiPAP in the ER in her settings were decreased from 12/6 down to 10/5 she was on a rate of 22. She was not tolerating the BiPAP in the ER due to claustrophobia. She reports that she usually uses an auto titrating BiPAP at home with a nasal pillows that she tolerates. She had went back to smoking 1-1.5 packs of cigarettes per day in in the last few days had cut back down to half a pack of cigarettes per day due to her symptoms. She denies any fevers or chills or recent ill contact. She has chronic hot flashes due to being menopausal. She has noticed increased wheezing over the last several days. Her symptoms have not been improved despite using her home nebulizers. She reports urinary frequency since arriving to the ER but has only urinated 120 mL at the time of my evaluation. Her COVID PCR in the ER was negative. Her dyspnea is worse with exertion. She denies any chest pain. She has been having some muscle spasm medial and inferior to her left scapula. The pain in her scapula is better with standing up and walking around. Review of Systems Review of Systems: 12 systems were reviewed with pertinent positives and negatives per HPI. Except as documented in the HPI, all other systems were reviewed and are negative. 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 Her mother recently unexpectedly in August 2020. She reports that she is now the matriarch of the family which causes her some stress. Her sons are 19 in 24 years of age. She smoked up to 1.5 packs of cigarettes per day since he was a teenager but has cut down to about 0.5 packs of cigarettes per day since November 2020. She denies any significant alcohol use. She reports that she is on SSI. Code status: Full code Surrogate decision maker: Smoking packs per day: 0.5 Smoking cigarettes per day: 10.0 Years smoked: 30 Smoking pack-years: 15.00 Smoking status: Current every day smoker Tobacco
[2021-10-13] MEDS: DULoxetine HCL 60 MG CAPSULE.DR PO ×2 (04:30→21:01)
[2021-10-13] MEDS: levETIRAcetam 500 MG TABLET 1000 MG PO ×2 (04:30→17:14)
[2021-10-13] MEDS: PREGABALIN (*CRX) 50 MG CAPSULE PO ×4 (04:31→17:13)
[2021-10-13] MEDS: LORazepam INJ (*CRX) 2 MG/ML VIAL 1 MG IV PUSH (04:32)
[2021-10-13 06:06] LABS: Anion Gap 6 mmol/L (8-16); Blood Urea Nitrogen 16 mg/dL (7-17); Calcium 8.1 mg/dL (8.4-10.2); Carbon Dioxide 37 mmol/L (22-30); Chloride 94 mmol/L (98-107); Estimated CRCL calculation 85 ml/min; Estimated Glomerular Filt Rate > 60; Glucose 148 mg/dL (65-110); Potassium 3.6 mmol/L (3.4-5.0); Sodium 137 mmol/L (137-145)
[2021-10-13 06:12] LABS: D Dimer 0.57 ug/mL (<0.48)
[2021-10-13] MEDS: methylPREDNISolone SOD SUCC 125 MG VIAL 60 MG IV PUSH ×4 (06:41→23:52)
[2021-10-13] MEDS: ALPRAZolam (*CRX) 0.5 MG TABLET 1 MG PO ×2 (08:58→17:13)
[2021-10-13] MEDS: ENOXAPARIN 40 MG/0.4 ML SYRINGE SUB-Q ×2 (08:58→21:00)
[2021-10-13] MEDS: NICOTINE (*PBKC) 14 MG PATCH 1 PATCH TOPICAL (08:58)
[2021-10-13] MEDS: FUROSEMIDE 40 MG TABLET PO (08:58)
--- NOTE | 2021-10-13 13:17 | PM.IMPN ---
Progress Note: A&P Assessment and Plan (1) Acute on chronic respiratory failure with hypoxia and hypercapnia: Code(s): J96.21 - Acute and chronic respiratory failure with hypoxia; J96.22 - Acute and chronic respiratory failure with hypercapnia Status: Acute Assessment and Plan: -COPD exacerbation vs. PNA as causation as noted per CTA results and CXR results. - Continue current high flow oxygen of 15L at 50% FiO2. - Consult Pulmonology - Continue rocephin and azithromycin - Continue solumedrol - Continue checking labs and VS trend. - Albuterol and Atrovent Q6 hrs. (2) Tobacco dependence due to cigarettes: Code(s): F17.210 - Nicotine dependence, cigarettes, uncomplicated Status: Acute Assessment and Plan: - Nicotine patch. - Counseled for smoking cessation. (3) COPD exacerbation: Code(s): J44.1 - Chronic obstructive pulmonary disease with (acute) exacerbation Status: Acute Assessment and Plan: See plan for #1. (4) Hypokalemia: Code(s): E87.6 - Hypokalemia Status: Acute Assessment and Plan: - Replaced in ER. - Continue to monitor. Additional Plan Patient has acute on chronic respiratory failure with hypoxia and hypercapnia due to COPD exacerbation in the setting of continuous tobacco abuse. The patient has been started on steroids with Decadron in the field. Will transition patient do Solu-Medrol 60 mg q.6 hours. Will continue scheduled albuterol and Atrovent treatments. Will continue BiPAP and will switch mask to see if patient will tolerate this better. Tidal volumes improved with mask being switched. The patient has profound hypoxic respiratory failure compared to hypercapnia during this admission. Patient has no evidence of CHF pick exacerbation in fact her BNP is much improved compared to prior evaluations. Will check a D-dimer elevated consider CTA of the chest to evaluate for pulmonary embolism. The importance of tobacco cessation was discussed with the patient. Nicotine patch has been ordered. Unfortunately the patient does not seem very motivated in pursuing tobacco cessation. Patient has hypokalemia. 40 mEq potassium chloride was provided p.o. in the ER. Will repeat BMP in a.m.. 50 minutes was spent in critical care activities. This case had a high probability of a clinically significant, sudden, or life threatening deterioration of this patient's condition which required my full and direct attention, intervention and personal management. Patient has been admitted as observation status. Time Spent With Patient Time with patient: 25 - 35 minutes Subjective Date/time seen: 10/13/21 8281 This pt. was examined at the bedside in interval assessment. She appears to be winded and is currently on her BiPap. She has complaints of having dyspnea that worsened over the past 3-4 days despite using her home oxygen. She has even had to increase her home oxygen up to 6L, and was found to be at 50% when EMS arrived. It was reported that the pt. had said that she had recently started smoking again, but she admits to me that she had actually never quit and she has smoked 1-1.5 ppd. She also endorsed urinary frequency in the ER. She had a CXR that showed airspace opacities in the lower lung zones, consistent with atelectasis vs. pneumonia. In addition as her d-dimer was elevated, a CTA was performed and was negative for any PE, however there was noted mild pulmonary edema, with small left pleural effusion. There is mild emphysema, and there are pulmonary nodules measuring up to 6 mm that are probably benign. A non-contrast low dose chest CT is recommended in 6 months. There is likely reactive mediastinal LN. Her ABG showed hypoxia that did improve with wearing her BiPap. She was admitted for acute on chronic COPD exacerbation and is currently on High Flow Nasal Cannula at a rate of 15 LPM with 50% FiO2. She remains tachypneic and tachycardic. The pt. has been started on ne
[2021-10-13 14:07] LABS: Alveolar/Arterial O2 Gradient 604.7 mmHg; Base Excess ABG 8.6 mEq/l (+/-2.0); Device HIGH FLOW NASAL CANN; Fractional Inspired Oxygen 100 %; HCO3 ABG 34.3 mEq/l (22.0-26.0); Modified Allen's Test Pass; Oxygen Saturation ABG 90.6 % (95.0-100.0); PCO2 ABG 50.8 mmHg (35.0-45.0); PO2 ABG 57.5 mmHg (80.0-100.0); PO2 FiO2 Ratio Arterial Blood 0.57 %; Site Drawn RIGHT RADIAL; Total Hemoglobin 14.6 g/dL (12.0-18.0); pH ABG 7.447 (7.350-7.450)
[2021-10-13] MEDS: LIDOCAINE 5% PATCH 1 PATCH TRANSDERM (17:13)
[2021-10-13] MEDS: ATORVASTATIN 10 MG TABLET PO (21:01)
[2021-10-13] MEDS: MIRTAZAPINE 15 MG TABLET 45 MG PO (21:01)
[2021-10-13 21:02] LABS: Alveolar/Arterial O2 Gradient 314.6 mmHg; Base Excess ABG 9.8 mEq/l (+/-2.0); Carboxyhemoglobin 0.6 % THb (0-2.0); Fractional Inspired Oxygen 60 %; HCO3 ABG 35.5 mEq/l (22.0-26.0); Methemoglobin ABG 0.4 %THb (0-1.5); Oxygen Content ABG 17.7 %vol (16.0-22.0); Oxygen Saturation ABG 90.3 % (95.0-100.0); PCO2 ABG 51.6 mmHg (35.0-45.0); PO2 ABG 56.4 mmHg (80.0-100.0); PO2 FiO2 Ratio Arterial Blood 0.94 %; Reduced Hemoglobin 11.4 %THb (0-5.0); Total Hemoglobin 14.4 g/dL (12.0-18.0); pH ABG 7.455 (7.350-7.450)
[2021-10-13 21:04] LABS: Device HIGH FLOW NASAL CANN; Modified Allen's Test Pass; Oxyhemoglobin 87.6 % THb (90.0-100.0); Site Drawn RIGHT RADIAL
[2021-10-13] MEDS: ALBUTEROL SULFATE NEB 2.5 MG/3 ML INH 5 MG INHALATION (21:49)
--- NOTE | 2021-10-13 22:11 | PC.NURSE ---
not even 10 minutes on the bipap. patient removed it stating that she heard her dog calling her. had to remind patient that she is in the hospital and that she is seeing and hearing things because of her test results.
[2021-10-14] VITALS (26 sets, daily range): BP systolic 112–128; BP diastolic 53–79; PULSE 73–114; RESP 16–26; TEMP 35.8–36.8; O2SAT 90–98
--- NOTE | 2021-10-14 | ECHO_ITS ---
Patient Info Name: Ifeanyi Olivera Age: 46 years : 1975 Gender: Female Ht: 64 in Wt: 258 lbs BSA: 2.36 m2 HR: 103 bpm BP: 117 / 73 mmHg Exam Date: 10/14/2021 10:09 AM Exam Location: [facility] Patient Status: Inpatient Admit Date: 10/13/2021 Staff Ordering Physician: Brittnee Howard Setup Technician: Dick Sotomayor RDCS, RT Attending Provider: Brtitnee Howard Referring Physician: Lee KULKARNI; Exam Type: CA echo dop bubble study w con Study Info Indications J96.91 - Respiratory failure, unspecified with hypoxia Complete two-dimentional, color flow and Doppler transthoracic echocardiogram is performed with agitated saline and with contrast to opacify the left ventricle and to improve the delineation of the left ventricle endocardial borders. Summary 1. Borderline LV enlargement and wall thickness; hyperdynamic LV systolic function, ejection fraction more than 70%. Normal diastolic function. Mild right atrial enlargement. No atrial shunt on bubble study, although image quality is suboptimal. Normal RV size and systolic function. Normal mitral valve structure, trace MR. Normal aortic valve structure, no significant stenosis. Trivial TR, severe pulmonary hypertension, RVSP 70 mmHg. Left Ventricle Left ventricular chamber dimension is normal. Left ventricular systolic function is hyperdynamic, estimated at >70%. There is no increased left ventricular wall thickness. The left ventricular diastolic function is normal. Right Ventricle Right ventricular chamber dimension is normal. Right ventricular systolic function is normal. Left Atria Left atrial chamber dimension is normal. Right Atria Right atrial chamber dimension is mildly enlarged. Atrial Septum Intact interatrial septum visualized by agitated saline imaging. Aortic Valve The aortic valve is normal. There is no aortic valve stenosis. There is no aortic valve regurgitation. Pulmonic Valve The pulmonic valve is normal. There is no pulmonic valve stenosis. There is no pulmonic regurgitation. Mitral Valve The mitral valve has normal leaflets. There is trace mitral valve regurgitation. Tricuspid Valve The tricuspid valve leaflets are normal. There is trace tricuspid valve regurgitation. Severe pulmonary hypertension, estimated pulmonary arterial systolic pressure is 70 mmHg. Pericardium/Pleural The pericardium appears normal. There is no pericardial effusion. Inferior Vena Cava Dilated inferior vena cava with <50% collapse upon inspiration consistent with normal right atrial pressure, 15 mmHg. Aorta The aortic root size at the sinus of Valsalva is normal. The prox ascending aorta size is normal. Left Ventricular Outflow Tract Name Value Normal LVOT 2D LVOT Diameter 2.0 cm LVOT Doppler LVOT Peak Gradient 9 mmHg LVOT Mean Gradient 5 mmHg LVOT VTI 27 cm LVOT VTI/AV VTI Ratio 0.7 LVOT Stroke Volume 85 ml LVOT CO 9.0 l/mi
[2021-10-14] MEDS: IPRATROPIUM BR 0.02% INH SOLN 0.5 MG/2.5 ML VIAL INHALATION ×5 (02:18→20:47)
[2021-10-14] MEDS: ALBUTEROL SULFATE NEB 2.5 MG/3 ML INH 5 MG INHALATION (02:18)
[2021-10-14 04:48] LABS: Basophils Percent Auto 0.1 % (0.2-1.2); Hemoglobin 13.9 g/dL (12.0-15.0); Immature Granulocyte Absolute 0.03 K/mm3 (0.00-0.031); Immature Granulocyte Percent A 0.4 % (0-0.5); Mean Corpuscular HGB Conc 29.6 g/dl (32-36); Mean Corpuscular Hemoglobin 28.7 pg (26-34); Mean Corpuscular Volume 97.1 fl (80-100); Mean Platelet Volume 10.5 fl (7.4-10.4); Monocytes Absolute Auto 0.2 K/mm3 (0.1-0.6); Monocytes Percent Auto 2.8 % (2.6-8.5); Neutrophils Percent Auto 85.7 % (45.5-73.1); Platelet Count Result 267 k/mm3 (150-375); Red Blood Count 4.84 M/mm3 (4.2-5.4); Red Cell Distribution Width 20.2 % (11.5-14.5); White Blood Count 8.2 K/mm3 (4.5-10.0)
[2021-10-14 05:00] LABS: Alanine Aminotransferase 28 U/L (4-35); Albumin Level 3.7 g/dL (3.5-5.1); Alkaline Phosphatase 148 U/L (38-126); Anion Gap 1 mmol/L (8-16); Aspartate Amino Transferase 28 U/L (14-36); Bilirubin,Total 0.9 mg/dL (0.2-1.3); Blood Urea Nitrogen 21 mg/dL (7-17); Calcium 8.4 mg/dL (8.4-10.2); Carbon Dioxide 38 mmol/L (22-30); Chloride 96 mmol/L (98-107); Estimated CRCL calculation 85 ml/min; Estimated Glomerular Filt Rate > 60; Glucose 162 mg/dL (65-110); Magnesium 2.5 mg/dL (1.6-2.3); Potassium 4.5 mmol/L (3.4-5.0); Sodium 135 mmol/L (137-145)
[2021-10-14] MEDS: methylPREDNISolone SOD SUCC 125 MG VIAL 60 MG IV PUSH (05:05)
[2021-10-14] MEDS: levETIRAcetam 500 MG TABLET 1000 MG PO ×2 (05:05→18:06)
[2021-10-14 05:14] LABS: Platelet Estimate Adequate (Adequate)
[2021-10-14 05:15] LABS: Anisocytosis 1+ (NORMAL); Hypochromasia 1+ (NORMAL)
--- NOTE | 2021-10-14 07:33 | PM.CNPUL ---
Assessment and Plan Assessment and plan (1) COPD exacerbation: Code(s): J44.1 - Chronic obstructive pulmonary disease with (acute) exacerbation Status: Acute Assessment and Plan: patient with 32 pack years tobacco history currently smoking, she has mild apical predominant centrilobular emphysema on her CT scan of the chest from 10/13/2021, I have no PFTs. Patient also has a history of childhood asthma which she grew out of at age 17. She currently has no peripheral eosinophilia but she may have an asthma component. Patient has chronic hypoxemic respiratory failure requiring 4 L at home and 4 L at night. Patient has obstructive sleep apnea on CPAP with 4 L at home. Patient has had 3 admissions to [facility] since 06/15/21 for acute on chronic hypercarbic and hypoxemic respiratory failure. These have been attributed to COPD as well as congestive heart failure. Currently she has another episode of acute hypoxic and hypercarbic respiratory failure with wheezing, shortness of breath, dry cough, and she has improved with treatment for COPD exacerbation, fluid overload and pneumonia. The patient has chronic hypercarbic respiratory failure from her COPD in the past as well as this admission. She had a blood gas of 7.42/52/76 on BiPAP /5 and 50% FIO2. In addition she has elevated serum bicarbonates in the past in this admission her bicarb is 35 and 38 on admission. She has chronic hypoxic hypercarbic respiratory failure and would benefit from BiPAP. She wore the BiPAP last night but said that the pressures did not feel right and I have placed her on a noninvasive ventilator with an AVAPS mode and achieved comfortable settings with RR 14, tidal volume 500, EPAP of 10, minimal inspiratory pressure 11, maximal inspiratory pressure 25, inspiratory time 1.0 seconds, rise of 2 (1 is our fastest), 50% FIO2 with sats 91%. I will obtain an overnight oximetry and a blood gas trip prior to removal.. I will treat for COPD exacerbation and she has no wheezing today and I will change her to prednisone 40 mg p.o. q.day, I will continue albuterol nebulizer 2.5 mg q.4 hours and ipratropium nebulizer 0.5 mg q.4 hours. Will continue ceftriaxone and azithromycin for now, started on 10/13. Continue supplemental oxygen to maintain saturations above 88%. I will obtain an echocardiogram with a bubble study and I will continue Lasix diuresis per the hospitalist team. (2) Congestive heart failure: Qualifiers: Heart failure chronicity: unspecified Heart failure type: unspecified Qualified Code(s): I50.9 - Heart failure, unspecified Code(s): I50.9 - Heart failure, unspecified Status: Acute Assessment and Plan: Patient has a previous echocardiogram with grade 1 diastolic dysfunction and normal LV systolic function with PASP of 47 on 07/16/2021. Patient has refractory hypoxemia and I will order an echo with bubble study. agree with aggressively diuresing patient as tolerated by her cardiac and renal systems. Lasix will be increased to 40 IV b.i.d.. Discussed with Brittnee Howard will follow with you History of Present Illness History of Present Illness Consult date: 10/14/21 Requesting physician: Brittnee Howard APN-C Reason for consult: COPD and hypoxemia Chief complaint: COPD Exacerbation, Acute Respiratory Failure Narrative: 10/14/2021: This is a new pulmonary consult for acute on chronic hypercarbic and hypoxemic respiratory failure. 46-year-old woman with a history of anxiety, bipolar disease, seizures, current tobacco use, diastolic congestive heart failure, obesity, AMALIA on CPAP 12, childhood asthma, COPD on 4-5 L home oxygen during the day and home CPAP 12 with 4 L at night. Patient tells me she had childhood asthma with multiple pneumonias in took inhalers throughout her childhood up until age 17. She has smoked tobacco from age 14 to current at 1 pack per day for approxima
[2021-10-14] MEDS: ALBUTEROL SULFATE NEB 2.5 MG/0.5 ML INH INHALATION ×4 (08:37→20:48)
[2021-10-14] MEDS: UMECLIDINIUM BROMIDE 62.5 MCG ELLIPTA 1 PUFF INHALATION (08:37)
[2021-10-14] MEDS: LIDOCAINE 5% PATCH 1 PATCH TRANSDERM (09:35)
[2021-10-14] MEDS: NICOTINE (*PBKC) 14 MG PATCH 1 PATCH TOPICAL (09:35)
[2021-10-14] MEDS: ALPRAZolam (*CRX) 0.5 MG TABLET 1 MG PO ×2 (09:35→18:05)
[2021-10-14] MEDS: ENOXAPARIN 40 MG/0.4 ML SYRINGE SUB-Q ×2 (09:35→20:32)
[2021-10-14] MEDS: PREGABALIN (*CRX) 50 MG CAPSULE PO ×3 (09:45→18:05)
[2021-10-14] MEDS: PERFLUTREN LIPID MICROSPHERES 1.5 ML VIAL DILUTED TO 10 ML TOTAL VOLUME IV PUSH (10:59)
--- NOTE | 2021-10-14 11:00 | IVDEFINITY ---
Prior to administration of IV Definity the patient was educated on the risks and benefits of the imaging enhancing agent including potential adverse side effects. The patient verbalized understanding. Allergies were verified. No exclusion criteria were identified and at least one of the following inclusion criteria were met: 1) physician request, 2) patient technically difficult to image (per the [place] [employer] of Echocardiography guidelines of two or more segments not discernable within the apical view), or 3) questionable left ventricular function. ?
[2021-10-14] MEDS: ACETAMINOPHEN 325 MG TABLET 650 MG PO (12:26)
[2021-10-14] MEDS: predniSONE 20 MG TABLET 40 MG PO (12:28)
[2021-10-14] MEDS: FUROSEMIDE INJ 40 MG/4 ML VIAL IV PUSH (18:05)
[2021-10-14] MEDS: CYCLOBENZAPRINE HCL 10 MG TABLET PO (20:32)
[2021-10-14] MEDS: DULoxetine HCL 60 MG CAPSULE.DR PO (20:32)
[2021-10-14] MEDS: MIRTAZAPINE 15 MG TABLET 45 MG PO (20:32)
[2021-10-14] MEDS: ATORVASTATIN 10 MG TABLET PO (20:32)
[2021-10-15] VITALS (28 sets, daily range): BP systolic 96–124; BP diastolic 45–56; PULSE 82–108; RESP 16–26; TEMP 36–36.7; O2SAT 90–98
[2021-10-15] MEDS: IPRATROPIUM BR 0.02% INH SOLN 0.5 MG/2.5 ML VIAL INHALATION ×5 (04:59→20:12)
[2021-10-15] MEDS: ALBUTEROL SULFATE NEB 2.5 MG/0.5 ML INH INHALATION ×5 (05:00→20:12)
[2021-10-15] MEDS: levETIRAcetam 500 MG TABLET 1000 MG PO ×2 (05:36→17:18)
[2021-10-15 05:44] LABS: Alveolar/Arterial O2 Gradient 180.7 mmHg; Base Excess ABG 12.2 mEq/l (+/-2.0); Fractional Inspired Oxygen 50 %; HCO3 ABG 40.9 mEq/l (22.0-26.0); Oxygen Content ABG 19.6 %vol (16.0-22.0); Oxygen Saturation ABG 96.7 % (95.0-100.0); Oxyhemoglobin 95.8 % THb (90.0-100.0); PO2 ABG 94.4 mmHg (80.0-100.0); PO2 FiO2 Ratio Arterial Blood 1.89 %; Total Hemoglobin 14.5 g/dL (12.0-18.0)
[2021-10-15 05:45] LABS: Modified Allen's Test Pass; PCO2 ABG 72.4 mmHg (35.0-45.0); Site Drawn RIGHT RADIAL
[2021-10-15 05:46] LABS: Device NON-INVASIVE VENT; Non-Invasive Vent Rate 14 /MIN
--- NOTE | 2021-10-15 08:23 | PCRCNOTE ---
Arranging home [facility] unit with patient's DME provider, Rachelle. [phone].
[2021-10-15] MEDS: ALPRAZolam (*CRX) 0.5 MG TABLET 1 MG PO ×2 (08:27→17:18)
[2021-10-15] MEDS: ENOXAPARIN 40 MG/0.4 ML SYRINGE SUB-Q ×2 (08:28→21:00)
[2021-10-15] MEDS: FUROSEMIDE INJ 40 MG/4 ML VIAL IV PUSH ×2 (08:28→17:19)
[2021-10-15] MEDS: LIDOCAINE 5% PATCH 1 PATCH TRANSDERM (08:28)
[2021-10-15] MEDS: NICOTINE (*PBKC) 14 MG PATCH 1 PATCH TOPICAL (08:28)
[2021-10-15] MEDS: predniSONE 20 MG TABLET 40 MG PO (08:28)
[2021-10-15] MEDS: CYCLOBENZAPRINE HCL 10 MG TABLET PO ×2 (08:30→20:28)
[2021-10-15] MEDS: PREGABALIN (*CRX) 50 MG CAPSULE PO ×3 (08:30→17:18)
[2021-10-15 08:31] LABS: Basophils Percent Auto 0.2 % (0.2-1.2); Hematocrit 51.2 % (37.0-47.0); Hemoglobin 15.4 g/dL (12.0-15.0); Immature Granulocyte Absolute 0.03 K/mm3 (0.00-0.031); Immature Granulocyte Percent A 0.4 % (0-0.5); Lymphocytes Absolute Auto 1.73 K/mm3 (0.9-3.2); Lymphocytes Percent Auto 20.3 % (18.3-44.2); Mean Corpuscular HGB Conc 30.1 g/dl (32-36); Mean Corpuscular Hemoglobin 29.5 pg (26-34); Mean Corpuscular Volume 98.1 fl (80-100); Mean Platelet Volume 11.7 fl (7.4-10.4); Monocytes Absolute Auto 0.6 K/mm3 (0.1-0.6); Monocytes Percent Auto 6.7 % (2.6-8.5); Neutrophils Absolute Auto 6.2 K/mm3 (1.3-6.7); Neutrophils Percent Auto 72.4 % (45.5-73.1); Platelet Count Result 206 k/mm3 (150-375); Red Blood Count 5.22 M/mm3 (4.2-5.4); Red Cell Distribution Width 20.4 % (11.5-14.5); White Blood Count 8.5 K/mm3 (4.5-10.0)
[2021-10-15 08:58] LABS: Anisocytosis 1+ (NORMAL); Platelet Estimate Adequate (Adequate)
[2021-10-15 09:05] LABS: Free T4 Free Thyroxine 0.85 ng/mL (0.78-2.19)
[2021-10-15 09:10] LABS: Alanine Aminotransferase 28 U/L (4-35); Alkaline Phosphatase 137 U/L (38-126); Anion Gap 7 mmol/L (8-16); Aspartate Amino Transferase 29 U/L (14-36); Bilirubin,Total 0.8 mg/dL (0.2-1.3); Blood Urea Nitrogen 28 mg/dL (7-17); Calcium 8.4 mg/dL (8.4-10.2); Carbon Dioxide 37 mmol/L (22-30); Chloride 94 mmol/L (98-107); Estimated CRCL calculation 85 ml/min; Estimated Glomerular Filt Rate > 60; Glucose 84 mg/dL (65-110); Magnesium 2.7 mg/dL (1.6-2.3); Potassium 3.3 mmol/L (3.4-5.0); Sodium 138 mmol/L (137-145)
--- NOTE | 2021-10-15 09:13 | PM.PNPUL ---
Progress Note: A&P Assessment and Plan (1) COPD exacerbation: Code(s): J44.1 - Chronic obstructive pulmonary disease with (acute) exacerbation Status: Acute Assessment and Plan: patient with 32 pack years tobacco history currently smoking, she has mild apical predominant centrilobular emphysema on her CT scan of the chest from 10/13/2021, I have no PFTs. Patient also has a history of childhood asthma which she grew out of at age 17. She currently has no peripheral eosinophilia but she may have an asthma component. Patient has chronic hypoxemic respiratory failure requiring 4 L at home and 4 L at night. Patient has obstructive sleep apnea on CPAP with 4 L at home. Patient has had 3 admissions to [facility] since 06/15/21 for acute on chronic hypercarbic and hypoxemic respiratory failure. These have been attributed to COPD as well as congestive heart failure. Currently she has another episode (') of acute hypoxic and hypercarbic respiratory failure with wheezing, shortness of breath, dry cough, and she has improved with treatment for COPD exacerbation, fluid overload and pneumonia. The patient has chronic hypercarbic respiratory failure from her COPD in the past as well as this admission. She had a blood gas of 7.42/52/76 on BiPAP 10/5 and 50% FIO2. In addition she has elevated serum bicarbonates in the past in this admission her bicarb is 35 and 38 on admission. She has chronic hypoxic hypercarbic respiratory failure and would benefit from BiPAP. She wore the BiPAP last night but said that the pressures did not feel right and I have placed her on a noninvasive ventilator with an AVAPS mode and achieved comfortable settings with RR 14, tidal volume 500, EPAP of 10, minimal inspiratory pressure 11, maximal inspiratory pressure 25, inspiratory time 1.0 seconds, rise of 2 (1 is our fastest), 50% FIO2 with sats 91%. I will obtain an overnight oximetry and a blood gas trip prior to removal.. I will treat for COPD exacerbation and she has no wheezing today and I will change her to prednisone 40 mg p.o. q.day, I will continue albuterol nebulizer 2.5 mg q.4 hours and ipratropium nebulizer 0.5 mg q.4 hours. Will continue ceftriaxone and azithromycin for now, started on 10/13. Continue supplemental oxygen to maintain saturations above 88%. I will obtain an echocardiogram with a bubble study and I will continue Lasix diuresis per the hospitalist team. 10/15 patient improved today. States that she has 70% better. She still has a dry cough but this is better at 10%. She slept well overnight with a hospital noninvasive ventilator with the AVAPS mode rate of 14, tidal volume 500, EPAP 10, minimal inspiratory pressure 11, maximal inspiratory pressure 25, inspiratory time 1.0, rise 2, 50%. . She denies wheezing today. patient had an overnight oximetry on the settings with an baseline saturation 96%, low saturation 90%, time with saturation less than or equal to 88% was 0 minutes. Patient had an ABG prior to removal of the noninvasive ventilator with a pH of 7.37/72/94. I will continue prednisone 40, albuterol and ipratropium nebulizers standing at Q 4 and ceftriaxone and azithromycin today. I will attempt to increase her minute volume at night by increasing her backup rate to 20, increasing her tidal volume to 550 and I will decrease her FiO2 to 40% and repeat an ABG prior to removal of the noninvasive ventilator and an overnight oximetry to assess her oxygenation. I have signed the orders for a home noninvasive ventilator with AVAPS-AE mode today. (2) Congestive heart failure: Qualifiers: Heart failure chronicity: unspecified Heart failure type: unspecified Qualified Code(s): I50.9 - Heart failure, unspecified Code(s): I50.9 - Heart failure, unspecified Status: Acute Assessment and Plan: 10/14 Patient has a previous echocardiogram with grade 1 diastolic dysfunction and normal LV sys
[2021-10-15] MEDS: ACETAMINOPHEN 325 MG TABLET 650 MG PO (11:33)
--- NOTE | 2021-10-15 13:37 | PM.IMPN ---
Progress Note: A&P Assessment and Plan (1) Acute on chronic respiratory failure with hypoxia and hypercapnia: Code(s): J96.21 - Acute and chronic respiratory failure with hypoxia; J96.22 - Acute and chronic respiratory failure with hypercapnia Status: Acute Assessment and Plan: -COPD exacerbation vs. PNA as causation as noted per CTA results and CXR results. - Continue current high flow oxygen of 8L at 50% FiO2. - Consult Pulmonology - Continue rocephin and azithromycin - Continue solumedrol - Continue checking labs and VS trend. - Albuterol and Atrovent Q6 hrs. (2) Tobacco dependence due to cigarettes: Code(s): F17.210 - Nicotine dependence, cigarettes, uncomplicated Status: Acute Assessment and Plan: - Nicotine patch. - Counseled for smoking cessation. (3) COPD exacerbation: Code(s): J44.1 - Chronic obstructive pulmonary disease with (acute) exacerbation Status: Acute Assessment and Plan: See plan for #1. (4) Hypokalemia: Code(s): E87.6 - Hypokalemia Status: Acute Assessment and Plan: - Replaced in ER. - Continue to monitor. Time Spent With Patient Time with patient: 15 - 25 minutes Subjective Date/time seen: 10/15/21 0815 This pt. was evaluated at the bedside in interval assessment after being admitted with hypoxic respiratory failure and acute on chronic COPD exacerbation, and a small PNA. She has had steroids as well as abx and she has been able to be weaned from some of her high flow oxygen coverage. She has remained afebrile and she has no other complaints or new symptoms to report today. No CP, Dyspnea, N/V/D. Review of Systems Review of Systems: All systems reviewed & are unremarkable except as noted in HPI and below Exam Narrative: General: Chronically ill-appearing, morbidly obese, female patient sitting up in the bed at this time in no acute distress. HEENT: BiPAP in place, large neck circumference, perez face Respiratory: Decreased breath sounds throughout with prolonged expiratory phase. No adventitious sounds present. Cardiovascular: RRR, S1 and S2 present. NO S3, S4, m,r,g,h Gastrointestinal: Soft, distended, firm, nontender, Bowel sounds are present in all four quadrants. Skin: No jaundice, no pallor Musculoskeletal: Trace edema bilateral lower extremities Neurological: Alert and oriented, speech is clear, no facial asymmetry, non-focal exam. Psychiatric: Pt. appears happy today and is determined to stop smoking after speaking with Dr. Joaquin. : Continent of urine Hematologic/lymphatic: No petechiae, no bruising, no anterior cervical lymphadenopathy Objective Data Vital Signs Vital Signs: Vital Signs - 24 hr 10/14/21 14:00 10/14/21 15:21 10/14/21 16:00 Temperature 97.4 F L Pulse Rate 98 90 97 Respiratory Rate 18 20 Blood Pressure 112/53 L Pulse Oximetry 90 10/14/21 18:00 10/14/21 20:00 10/14/21 20:48 Temperature 96.7 F L Pulse Rate 101 H 110 H 92 Respiratory Rate 20 21 H Blood Pressure 128/71 Pulse Oximetry 91 10/14/21 20:51 10/14/21 20:57 10/14/21 21:45 Temperature Pulse Rate 94 102 H Respiratory Rate 21 H 20 Blood Pressure Pulse Oximetry 91 10/14/21 22:50 10/14/21 23:21 10/15/21 00:00 Temperature 96.9 F L Pulse Rate 100 97 97 Respiratory Rate 16 20 20 Blood Pressure 124/64 Pulse Oximetry 91 94 94 10/15/21 02:00 10/15/21 02:56 10/15/21 04:00 Temperature 96.8 F L Pulse Rate 92 94 Respiratory Rate 17 24 H Blood Pressure 96/51 L Pulse Oximetry 90 98 10/15/21 05:00 10/15/21 05:07 10/15/21 05:50 Temperature Pulse Rate 85 86 99 Respiratory Rate 19 21 H Blood Pressure Pulse Oximetry 10/15/21 08:00 10/15/21 08:26 10/15/21 08:31 Temperature 97.5 F L Pulse Rate 86 85 85 Respiratory Rate 24 H 20 20 Blood Pressure 118/51 L Pulse Oximetry 92 95 10/15/21 08:35 10/15/21 10:00 10/15/21 12:00 Temperature 97.8 F Pu
[2021-10-15] MEDS: DULoxetine HCL 60 MG CAPSULE.DR PO (20:28)
[2021-10-15] MEDS: MIRTAZAPINE 15 MG TABLET 45 MG PO (20:28)
[2021-10-15] MEDS: ATORVASTATIN 10 MG TABLET PO (20:29)
[2021-10-16] VITALS (22 sets, daily range): BP systolic 101–122; BP diastolic 52–70; PULSE 76–114; RESP 15–22; TEMP 35.6–36.8; O2SAT 18–99
--- NOTE | 2021-10-16 00:11 | PCRCNOTE ---
0000 UPD treatment not given due to pt being on overnight study.
[2021-10-16] MEDS: ALBUTEROL SULFATE NEB 2.5 MG/0.5 ML INH INHALATION ×2 (04:29→09:05)
[2021-10-16] MEDS: IPRATROPIUM BR 0.02% INH SOLN 0.5 MG/2.5 ML VIAL INHALATION ×2 (04:29→09:05)
[2021-10-16 04:52] LABS: Base Excess ABG 12.7 mEq/l (+/-2.0); Fractional Inspired Oxygen 40 %; HCO3 ABG 41.3 mEq/l (22.0-26.0); Oxygen Content ABG 18.3 %vol (16.0-22.0); Oxygen Saturation ABG 88.4 % (95.0-100.0); PO2 ABG 57.6 mmHg (80.0-100.0); PO2 FiO2 Ratio Arterial Blood 1.44 %; pH ABG 7.383 (7.350-7.450)
[2021-10-16 04:56] LABS: Modified Allen's Test Pass; Oxyhemoglobin 86.8 % THb (90.0-100.0); Site Drawn RIGHT BRACHIAL
[2021-10-16 04:57] LABS: Device NON-INVASIVE VENT
[2021-10-16 04:58] LABS: Non-Invasive Vent Rate 14 /MIN
[2021-10-16 04:59] LABS: Non-Invasive Expiratory Pressure 10 CMH2O
[2021-10-16] MEDS: levETIRAcetam 500 MG TABLET 1000 MG PO ×2 (05:23→18:31)
[2021-10-16 06:11] LABS: Basophils Percent Auto 0.1 % (0.2-1.2); Eosinophils Percent Auto 0.3 % (0-4.4); Hematocrit 46.8 % (37.0-47.0); Immature Granulocyte Absolute 0.03 K/mm3 (0.00-0.031); Immature Granulocyte Percent A 0.4 % (0-0.5); Lymphocytes Absolute Auto 2.29 K/mm3 (0.9-3.2); Lymphocytes Percent Auto 32.2 % (18.3-44.2); Mean Corpuscular HGB Conc 29.9 g/dl (32-36); Mean Corpuscular Hemoglobin 28.8 pg (26-34); Mean Corpuscular Volume 96.3 fl (80-100); Monocytes Absolute Auto 0.6 K/mm3 (0.1-0.6); Monocytes Percent Auto 8.6 % (2.6-8.5); Neutrophils Absolute Auto 4.2 K/mm3 (1.3-6.7); Neutrophils Percent Auto 58.4 % (45.5-73.1); Platelet Count Result 263 k/mm3 (150-375); Red Blood Count 4.86 M/mm3 (4.2-5.4); Red Cell Distribution Width 19.8 % (11.5-14.5); White Blood Count 7.1 K/mm3 (4.5-10.0)
[2021-10-16 08:01] LABS: Alanine Aminotransferase 29 U/L (4-35); Albumin Level 3.5 g/dL (3.5-5.1); Alkaline Phosphatase 112 U/L (38-126); Aspartate Amino Transferase 36 U/L (14-36); Bilirubin,Total 0.8 mg/dL (0.2-1.3); Blood Urea Nitrogen 26 mg/dL (7-17); Calcium 8.1 mg/dL (8.4-10.2); Carbon Dioxide > 40 mmol/L (22-30); Chloride 97 mmol/L (98-107); Estimated CRCL calculation 85 ml/min; Estimated Glomerular Filt Rate > 60; Glucose 85 mg/dL (65-110); Magnesium 2.4 mg/dL (1.6-2.3); Potassium 3.9 mmol/L (3.4-5.0); Sodium 138 mmol/L (137-145)
[2021-10-16] MEDS: CYCLOBENZAPRINE HCL 10 MG TABLET PO ×2 (08:27→20:33)
[2021-10-16] MEDS: ALPRAZolam (*CRX) 0.5 MG TABLET 1 MG PO ×2 (08:27→18:30)
[2021-10-16] MEDS: NICOTINE (*PBKC) 14 MG PATCH 1 PATCH TOPICAL (08:28)
[2021-10-16] MEDS: ENOXAPARIN 40 MG/0.4 ML SYRINGE SUB-Q ×2 (08:28→20:33)
[2021-10-16] MEDS: FUROSEMIDE INJ 40 MG/4 ML VIAL IV PUSH ×2 (08:28→18:31)
[2021-10-16] MEDS: predniSONE 20 MG TABLET 40 MG PO (08:28)
[2021-10-16] MEDS: LIDOCAINE 5% PATCH 1 PATCH TRANSDERM (08:28)
[2021-10-16] MEDS: PREGABALIN (*CRX) 50 MG CAPSULE PO ×3 (08:30→18:30)
--- NOTE | 2021-10-16 10:21 | PM.PNPUL ---
Progress Note: A&P Assessment and Plan (1) COPD exacerbation: Code(s): J44.1 - Chronic obstructive pulmonary disease with (acute) exacerbation Status: Acute Assessment and Plan: patient with 32 pack years tobacco history currently smoking, she has mild apical predominant centrilobular emphysema on her CT scan of the chest from 10/13/2021, I have no PFTs. Patient also has a history of childhood asthma which she grew out of at age 17. She currently has no peripheral eosinophilia but she may have an asthma component. Patient has chronic hypoxemic respiratory failure requiring 4 L at home and 4 L at night. Patient has obstructive sleep apnea on CPAP with 4 L at home. Patient has had 3 admissions to [facility] since 06/15/21 for acute on chronic hypercarbic and hypoxemic respiratory failure. These have been attributed to COPD as well as congestive heart failure. Currently she has another episode (') of acute hypoxic and hypercarbic respiratory failure with wheezing, shortness of breath, dry cough, and she has improved with treatment for COPD exacerbation, fluid overload and pneumonia. The patient has chronic hypercarbic respiratory failure from her COPD in the past as well as this admission. She had a blood gas of 7.42/52/76 on BiPAP 10/5 and 50% FIO2. In addition she has elevated serum bicarbonates in the past in this admission her bicarb is 35 and 38 on admission. She has chronic hypoxic hypercarbic respiratory failure and would benefit from BiPAP. She wore the BiPAP last night but said that the pressures did not feel right and I have placed her on a noninvasive ventilator with an AVAPS mode and achieved comfortable settings with RR 14, tidal volume 500, EPAP of 10, minimal inspiratory pressure 11, maximal inspiratory pressure 25, inspiratory time 1.0 seconds, rise of 2 (1 is our fastest), 50% FIO2 with sats 91%. I will obtain an overnight oximetry and a blood gas trip prior to removal.. I will treat for COPD exacerbation and she has no wheezing today and I will change her to prednisone 40 mg p.o. q.day, I will continue albuterol nebulizer 2.5 mg q.4 hours and ipratropium nebulizer 0.5 mg q.4 hours. Will continue ceftriaxone and azithromycin for now, started on 10/13. Continue supplemental oxygen to maintain saturations above 88%. I will obtain an echocardiogram with a bubble study and I will continue Lasix diuresis per the hospitalist team. 10/15 patient improved today. States that she has 70% better. She still has a dry cough but this is better at 10%. She slept well overnight with a hospital noninvasive ventilator with the AVAPS mode rate of 14, tidal volume 500, EPAP 10, minimal inspiratory pressure 11, maximal inspiratory pressure 25, inspiratory time 1.0, rise 2, 50%. . She denies wheezing today. patient had an overnight oximetry on the settings with an baseline saturation 96%, low saturation 90%, time with saturation less than or equal to 88% was 0 minutes. Patient had an ABG prior to removal of the noninvasive ventilator with a pH of 7.37/72/94. I will continue prednisone 40, albuterol and ipratropium nebulizers standing at Q 4 and ceftriaxone and azithromycin today. I will attempt to increase her minute volume at night by increasing her backup rate to 20, increasing her tidal volume to 550 and I will decrease her FiO2 to 40% and repeat an ABG prior to removal of the noninvasive ventilator and an overnight oximetry to assess her oxygenation. I have signed the orders for a home noninvasive ventilator with AVAPS-AE mode today. 10/16 Patient continues to improve. Her left-sided chest pain is better her dyspnea on exertion is better, her dry cough is better. currently she is on 8 L nasal cannula with saturations 94%. I discontinued her albuterol and ipratropium nebulizers and placed her on Anoro Ellipta. Day for ceftriaxone and azithromycin. Cultures are negative I will discontinue ceftriaxone toda
[2021-10-16] MEDS: ACETAMINOPHEN 325 MG TABLET 650 MG PO (11:55)
--- NOTE | 2021-10-16 13:53 | PM.IMPN ---
Progress Note: A&P Assessment and Plan (1) Acute on chronic respiratory failure with hypoxia and hypercapnia: Code(s): J96.21 - Acute and chronic respiratory failure with hypoxia; J96.22 - Acute and chronic respiratory failure with hypercapnia Status: Acute Assessment and Plan: -COPD exacerbation vs. PNA as causation as noted per CTA results and CXR results. - Continue current high flow oxygen of 8L at 40% FiO2. - Consult Pulmonology - Continue rocephin and azithromycin - Continue solumedrol - Continue checking labs and VS trend. - Albuterol and Atrovent Q6 hrs. (2) Tobacco dependence due to cigarettes: Code(s): F17.210 - Nicotine dependence, cigarettes, uncomplicated Status: Acute Assessment and Plan: - Nicotine patch. - Counseled for smoking cessation. (3) COPD exacerbation: Code(s): J44.1 - Chronic obstructive pulmonary disease with (acute) exacerbation Status: Acute Assessment and Plan: See plan for #1. (4) Hypokalemia: Code(s): E87.6 - Hypokalemia Status: Acute Assessment and Plan: - Replaced in ER. - Continue to monitor. Time Spent With Patient Time with patient: 15 - 25 minutes Subjective Date/time seen: 10/16/21 1020 This pt. was examined at the bedside in interval assessment this AM. She reports that she is feeling better overall and she has continued to improve. She appears to feel better and she also has been able to have her oxygen weaned further. Pulmonology is covering and managing in conjunction with Hospitalist service. No CP, decreased dyspnea, remains on High flow oxygen at 8L and 40% FiO2. Review of Systems Review of Systems: All systems reviewed & are unremarkable except as noted in HPI and below Exam Const: General: comfortable and no acute distress HENMT: Mouth: Yes moist mucous membranes Eyes: Sclera: sclerae normal Neck: Neck: supple and no JVD Lymphatic: lymphadenopathy not noted Resp: Auscultation: crackles and diminished lung sounds diffuse Cardio: Rate: regular rate Rhythm: regular rhythm GI: GI Palp: Yes Soft to palpation Auscultation: normal bowel sounds Skin: General skin exam: normal color and no rashes or lesions noted Neuro: General: gait normal Speech: normal speech Extrem: General: normal to inspection Psych: Mental Status: mental status grossly normal Affect: normal affect Objective Data Vital Signs Vital Signs: Vital Signs - 24 hr 10/15/21 14:00 10/15/21 16:00 10/15/21 16:44 Temperature 98.1 F Pulse Rate 105 H 108 H 100 Respiratory Rate 26 H 20 Blood Pressure 124/56 L Pulse Oximetry 91 10/15/21 16:51 10/15/21 18:00 10/15/21 20:00 Temperature 98.0 F Pulse Rate 104 H 103 H 94 Respiratory Rate 20 16 Blood Pressure 118/45 L Pulse Oximetry 93 10/15/21 20:14 10/15/21 20:15 10/15/21 20:20 Temperature Pulse Rate 88 91 Respiratory Rate 16 16 Blood Pressure Pulse Oximetry 93 10/15/21 22:00 10/15/21 23:08 10/15/21 23:10 Temperature Pulse Rate 88 82 Respiratory Rate 16 Blood Pressure Pulse Oximetry 96 96 10/15/21 23:55 10/16/21 00:00 10/16/21 02:00 Temperature 97.9 F Pulse Rate 89 83 88 Respiratory Rate 18 18 Blood Pressure 104/45 L Pulse Oximetry 95 95 10/16/21 04:00 10/16/21 04:30 10/16/21 04:31 Temperature 98.2 F Pulse Rate 92 91 89 Respiratory Rate 22 H 20 20 Blood Pressure 101/54 L Pulse Oximetry 18 L 99 10/16/21 04:44 10/16/21 05:29 10/16/21 08:00 Temperature Pulse Rate 86 82 97 Respiratory Rate 20 Blood Pressure Pulse Oximetry 90 10/16/21 08:23 10/16/21 09:06 10/16/21 10:00 Temperature 97.6 F Pulse Rate 94 83 99 Respiratory Rate 22 H 15 Blood Pressure 122/70 Pulse Oximetry 94 10/16/21 12:00 10/16/21 12:03 10/16/21 13:35 Temperature 96.1 F L Pulse Rate 114 H 91 93 Respiratory Rate 22 H Blood Pressure 103/52 L Pulse Oximetry 90 93 Intak
[2021-10-16] MEDS: DULoxetine HCL 60 MG CAPSULE.DR PO (20:32)
[2021-10-16] MEDS: ATORVASTATIN 10 MG TABLET PO (20:33)
[2021-10-16] MEDS: MIRTAZAPINE 15 MG TABLET 45 MG PO (20:33)
[2021-10-17] VITALS (18 sets, daily range): BP systolic 112–120; BP diastolic 57–70; PULSE 71–128; RESP 20–23; TEMP 36.1–36.9; O2SAT 6–97
[2021-10-17 04:42] LABS: Basophils Percent Auto 0.2 % (0.2-1.2); Eosinophils Absolute Auto 0.1 K/mm3 (0-0.3); Eosinophils Percent Auto 0.6 % (0-4.4); Hematocrit 46.4 % (37.0-47.0); Hemoglobin 13.9 g/dL (12.0-15.0); Immature Granulocyte Absolute 0.04 K/mm3 (0.00-0.031); Immature Granulocyte Percent A 0.5 % (0-0.5); Lymphocytes Absolute Auto 2.94 K/mm3 (0.9-3.2); Lymphocytes Percent Auto 36.3 % (18.3-44.2); Mean Corpuscular Hemoglobin 28.5 pg (26-34); Mean Corpuscular Volume 95.1 fl (80-100); Mean Platelet Volume 9.4 fl (7.4-10.4); Monocytes Absolute Auto 0.6 K/mm3 (0.1-0.6); Monocytes Percent Auto 7.5 % (2.6-8.5); Neutrophils Absolute Auto 4.4 K/mm3 (1.3-6.7); Neutrophils Percent Auto 54.9 % (45.5-73.1); Platelet Count Result 257 k/mm3 (150-375); Red Blood Count 4.88 M/mm3 (4.2-5.4); Red Cell Distribution Width 19.6 % (11.5-14.5); White Blood Count 8.1 K/mm3 (4.5-10.0)
[2021-10-17 05:02] LABS: Alanine Aminotransferase 29 U/L (4-35); Albumin Level 3.4 g/dL (3.5-5.1); Alkaline Phosphatase 99 U/L (38-126); Aspartate Amino Transferase 31 U/L (14-36); Blood Urea Nitrogen 21 mg/dL (7-17); Carbon Dioxide > 40 mmol/L (22-30); Chloride 95 mmol/L (98-107); Estimated CRCL calculation 95 ml/min; Estimated Glomerular Filt Rate > 60; Glucose 90 mg/dL (65-110); Magnesium 2.3 mg/dL (1.6-2.3); Potassium 3.8 mmol/L (3.4-5.0); Sodium 136 mmol/L (137-145)
[2021-10-17] MEDS: levETIRAcetam 500 MG TABLET 1000 MG PO (05:20)
[2021-10-17 05:23] LABS: Base Excess ABG 10.5 mEq/l (+/-2.0); Fractional Inspired Oxygen 40 %; HCO3 ABG 34.9 mEq/l (22.0-26.0); Oxygen Saturation ABG 98.5 % (95.0-100.0); Oxyhemoglobin 96.7 % THb (90.0-100.0); PCO2 ABG 45.2 mmHg (35.0-45.0); PO2 ABG 115.2 mmHg (80.0-100.0); PO2 FiO2 Ratio Arterial Blood 2.88 %; Total Hemoglobin 14.6 g/dL (12.0-18.0)
[2021-10-17 05:25] LABS: Modified Allen's Test Pass; Site Drawn RIGHT RADIAL; pH ABG 7.506 (7.350-7.450)
[2021-10-17 05:26] LABS: Device NON-INVASIVE VENT; Non-Invasive Vent Rate 20 /MIN
--- NOTE | 2021-10-17 08:36 | P.PNPL_ITS ---
Progress Note: A&P Assessment and Plan (1) COPD exacerbation: Code(s): J44.1 - Chronic obstructive pulmonary disease with (acute) exacerbation Status: Acute Assessment and Plan: patient with 32 pack years tobacco history currently smoking, she has mild apical predominant centrilobular emphysema on her CT scan of the chest from 10/13/2021, I have no PFTs. Patient also has a history of childhood asthma whi ch she grew out of at age 17. She currently has no peripheral eosinophilia but she may have an asthma component. Patient has chronic hypoxemic respiratory failure requiring 4 L at home and 4 L at night. Patient has obstructive sleep apnea on CPAP with 4 L at home. Patient has had 3 admissions to [facility] since 06/15/21 for acute on chronic hypercarbic and hypoxemic respiratory failure. These have been attributed to COPD as well as congestive heart failure. Currently she has another episode (') of acute hypoxic and hypercarbic respiratory failure with wheezing, shortness of breath, dry cough, and she has improved with treatment for COPD exacerbation, fluid overload and pneumonia. The patient has chronic hypercarbic respiratory failure from her COPD in the past as well as this admission. She had a blood gas of 7.42/52/76 on BiPAP 10/5 and 50% FIO2. In addition she has elevated serum bicarbonates in the past in this admission her bicarb is 35 and 38 on admission. She has chronic hypoxic hypercarbic respiratory failure and would benefit from BiPAP. She wore the BiPAP last night but said that the pressures did not feel right and I have placed her on a noninvasive ventilator with an AVAPS mode and achieved comfortable settings with RR 14, tidal volume 500, EPAP of 10, minimal inspiratory pressure 11, maximal inspiratory pressure 25, inspiratory time 1.0 seconds, rise of 2 (1 is our fastest), 50% FIO2 with sats 91%. I will obtain an overnight oximetry and a blood gas trip prior to removal.. I will treat for COPD exacerbation and she has no wheezing today and I will change her to prednisone 40 mg p.o. q.day, I will continue albuterol nebulizer 2.5 mg q.4 hours and ipratropium nebulizer 0.5 mg q.4 hours. Will continue ceftriaxone and azithromycin for now, started on 10/13. Continue supplemental oxygen to maintain saturations above 88%. I will obtain an echocardiogram with a bubble study and I will continue Lasix diuresis per the hospitalist team. 10/15 patient improved today. States that she has 70% better. She still has a dry cough but this is better at 10%. She slept well overnight with a hospital noninvasive ventilator with the AVAPS mode rate of 14, tidal volume 500, EPAP 10, minimal inspiratory pressure 11, maximal inspiratory pressure 25, inspiratory time 1.0, rise 2, 50%. . She denies wheezing today. patient had an overnight oximetry on the settings with an baseline saturation 96%, low saturation 90%, time with saturation less than or equal to 88% was 0 minutes. Patient had an ABG prior to removal of the noninvasive ventilator with a pH of 7.37/72/94. I will continue prednisone 40, albuterol and ipratropium nebulizers standing at Q 4 and ceftriaxone and azithromycin today. I will attempt to increase her minute volume at night by increasing her backup rate to 20, increasing her tidal volume to 550 and I will decrease her FiO2 to 40% and repeat an ABG prior to removal of the noninvasive ventilator and an overnight oximetry to assess her oxygenation. I have signed the orders for a home noninvasive ventilator with AVAPS-AE mode today. 10/16 Patient continues to improve. Her left-sided chest pain is better her dyspnea on exertion is better, her dry cough is better. currently she is on 8
[2021-10-17] MEDS: UMECLIDINIUM/VILANTEROL 62.5-25 MCG ELLIPTA 1 PUFF INHALATION (08:43)
[2021-10-17] MEDS: PREGABALIN (*CRX) 50 MG CAPSULE PO ×2 (09:22→13:11)
[2021-10-17] MEDS: ALPRAZolam (*CRX) 0.5 MG TABLET 1 MG PO (09:22)
[2021-10-17] MEDS: AZITHROMYCIN 250 MG TABLET PO (09:22)
[2021-10-17] MEDS: CYCLOBENZAPRINE HCL 10 MG TABLET PO (09:22)
[2021-10-17] MEDS: FUROSEMIDE INJ 40 MG/4 ML VIAL IV PUSH (09:23)
[2021-10-17] MEDS: predniSONE 20 MG TABLET 40 MG PO (09:23)
[2021-10-17] MEDS: ENOXAPARIN 40 MG/0.4 ML SYRINGE SUB-Q (09:23)
[2021-10-17] MEDS: NICOTINE (*PBKC) 14 MG PATCH 1 PATCH TOPICAL (09:23)
[2021-10-17] MEDS: LIDOCAINE 5% PATCH 1 PATCH TRANSDERM (09:23)
--- NOTE | 2021-10-17 11:34 | PCRCNOTE ---
HOME OXYGEN AT 6 LITERS AT REST AND 8 LITERS WITH ACTIVITY. PT HAS HOME O2 WITH CONCENTRATOR THAT GOES UP TO 10 LITERS. PT'S SON TO BRING IN TANK FOR DISCHARGE.
--- NOTE | 2021-10-17 12:24 | PM.DS ---
DS: Admitting Diagnosis Discharge Date 10/17/21 Admitting Diagnosis (1) Acute on chronic respiratory failure with hypoxia and hypercapnia: Code(s): J96.21 - Acute and chronic respiratory failure with hypoxia; J96.22 - Acute and chronic respiratory failure with hypercapnia Status: Acute (2) Tobacco dependence due to cigarettes: Code(s): F17.210 - Nicotine dependence, cigarettes, uncomplicated Status: Acute (3) COPD exacerbation: Code(s): J44.1 - Chronic obstructive pulmonary disease with (acute) exacerbation Status: Acute (4) Hypokalemia: Code(s): E87.6 - Hypokalemia Status: Acute DS: Discharge Diagnosis Discharge Diagnosis (1) Acute respiratory failure: Code(s): J96.00 - Acute respiratory failure, unspecified whether with hypoxia or hypercapnia Status: Acute (2) Hypokalemia: Code(s): E87.6 - Hypokalemia Status: Acute (3) Acute on chronic respiratory failure with hypoxia and hypercapnia: Code(s): J96.21 - Acute and chronic respiratory failure with hypoxia; J96.22 - Acute and chronic respiratory failure with hypercapnia Status: Acute (4) Tobacco dependence due to cigarettes: Code(s): F17.210 - Nicotine dependence, cigarettes, uncomplicated Status: Acute (5) Morbid obesity with BMI of 40.0-44.9, adult: Code(s): E66.01 - Morbid (severe) obesity due to excess calories; Z68.41 - Body mass index [BMI] 40.0-44.9, adult Status: Acute (6) COPD exacerbation: Code(s): J44.1 - Chronic obstructive pulmonary disease with (acute) exacerbation Status: Acute (7) Acidosis: Code(s): E87.2 - Acidosis Status: Acute (8) Hypoxia: Code(s): R09.02 - Hypoxemia Status: Acute (9) Acute on chronic diastolic (congestive) heart failure: Code(s): I50.33 - Acute on chronic diastolic (congestive) heart failure Status: Acute DS: Summary Hospital Course Reason for hospitalization: Shortness of breath Hospital Course: 10/13/21 Patient has acute on chronic respiratory failure with hypoxia and hypercapnia due to COPD exacerbation in the setting of continuous tobacco abuse. The patient has been started on steroids with Decadron in the field. Will transition patient do Solu-Medrol 60 mg q.6 hours. Will continue scheduled albuterol and Atrovent treatments. Will continue BiPAP and will switch mask to see if patient will tolerate this better. Tidal volumes improved with mask being switched. The patient has profound hypoxic respiratory failure compared to hypercapnia during this admission. Patient has no evidence of CHF pick exacerbation in fact her BNP is much improved compared to prior evaluations. Will check a D-dimer elevated consider CTA of the chest to evaluate for pulmonary embolism. The importance of tobacco cessation was discussed with the patient. Nicotine patch has been ordered. Unfortunately the patient does not seem very motivated in pursuing tobacco cessation. Patient has hypokalemia. 40 mEq potassium chloride was provided p.o. in the ER. Will repeat BMP in a.m.. 50 minutes was spent in critical care activities. This case had a high probability of a clinically significant, sudden, or life threatening deterioration of this patient's condition which required my full and direct attention, intervention and personal management. 10/14/21 -COPD exacerbation vs. PNA as causation as noted per CTA results and CXR results. - Continue current high flow oxygen of 15L at 50% FiO2. - Consult Pulmonology - Continue rocephin and azithromycin - Continue solumedrol - Continue checking labs and VS trend. - Albuterol and Atrovent Q6 hrs. - Nicotine patch. - Counseled for smoking cessation. 10/15/21 -COPD exacerbation vs. PNA as causation as noted per CTA results and CXR results. - Continue current high flow oxygen of 8L at 50% FiO2. - Consult Pulmonology - Continue rocephin and azithromycin - Continue
== END 2021-10-17 13:30 | disposition home or self-care (01) | DRG 190 ==
LOC: ANHED 23:57 → ANHIMU 10-13 01:39
PROVIDERS: Internal Medicine Pulmonary Disease; Nurse Practitioner Adult Health; Physician Assistant; Admitting Provider Internal Medicine; Emergency Provider Emergency Medicine; PCP Family Medicine; Visit Provider Hospitalist
DX: J43.2 Centrilobular emphysema (principal); J96.21 Acute and chronic respiratory failure with hypoxia; J96.22 Acute and chronic respiratory failure with hypercapnia; I50.33 Acute on chronic diastolic (congestive) heart failure; Z68.41 Body mass index [BMI] 40.0-44.9, adult; E87.2 Acidosis; F31.9 Bipolar disorder, unspecified; Z20.822 Contact with and (suspected) exposure to COVID-19; G47.33 Obstructive sleep apnea (adult) (pediatric); G40.909 Epilepsy, unspecified, not intractable, without status epilepticus; E87.6 Hypokalemia; E66.01 Morbid (severe) obesity due to excess calories; F17.210 Nicotine dependence, cigarettes, uncomplicated; Z90.49 Acquired absence of other specified parts of digestive tract; Z99.81 Dependence on supplemental oxygen
CPT/HCPCS: 36415; 36600; 71045; 71275; 80048; 80053; 82375; 82805; 83050; 83735; 83880; 84439; 84443; 85025; 85380; 85610; 85730; 93005; 94002; 94003; 94640; 94762; 96374; 96375; 97161; 97165; 99285; A9270; C8929; C9803; G0378; J0456; J0696; J1650; J1940; J2060; J2930; J7512; Q9957; Q9967; U0003; U0005